=== PATIENT | male | born 1945 | race Caucasian/White ===

== ENCOUNTER 2016-07-27 13:25 | Emergency (ER) | payer MEDICARE ==
[2016-07-27] MEDS ORDERED: Sodium Chloride 0.9% 2.5 ML Syringe FLUSH PRN (13:36)
[2016-07-27] MEDS ORDERED: Sodium Chloride 0.9% 10 ML Syringe FLUSH PRN (13:36)
[2016-07-27] MEDS ORDERED: Aspirin 81 MG Tab.Chew PO ONE (13:36)
[2016-07-27] MEDS ORDERED: Ondansetron 4 MG/2 ML SDV ONE (13:40)
[2016-07-27] MEDS ORDERED: Midazolam 1 MG/ML 2 ML SDV ONE ×2 (13:48→13:56)
[2016-07-27] MEDS ORDERED: Tenecteplase 50 MG Kit ONE (13:53)
[2016-07-27] MEDS ORDERED: Heparin Sodium 5,000 Units/ML Vial IVPUSH ONE (13:53)
[2016-07-27] MEDS ORDERED: Tenecteplase 50 MG Kit IV ONE (13:56)
[2016-07-27] MEDS ORDERED: fentaNYL 100 MCG/2 ML SDV ONE (14:02)
--- NOTE | 2016-07-27 14:02 | EDM.PDOC ---
ED HPI GENERAL MEDICAL PROBLEM - General Stated Complaint: CHEST PAIN Time Seen by Provider: 07/27/16 13:30 Source of Information: Reports: Patient History Limitations: Reports: No Limitations - History of Present Illness INITIAL COMMENTS - FREE TEXT/NARRATIVE: History of present illness: [] Patient presents with chest pain for the past hour after moving his holds while watering the lawn this morning. He has a history of COPD and is currently on Symbicort and DuoNeb's. Patient also has a history of colon cancer in the remote past. He denies any cardiac history or previous CT. Review of systems: As per history of present illness and below otherwise all systems reviewed and negative. Past medical history: As per history of present illness and as reviewed below otherwise noncontributory. Surgical history: As per history of present illness and as reviewed below otherwise noncontributory. Social history: No reported history of drug or alcohol abuse. Family history: As per history of present illness and as reviewed below otherwise noncontributory. Physical exam: General: Well developed, well nourished pale and diaphoretic HEENT: Atraumatic, normocephalic, pupils reactive, negative for conjunctival pallor or scleral icterus, mucous membranes moist, throat clear, neck supple, nontender, trachea midline. Lungs: Clear to auscultation, breath sounds equal bilaterally, chest nontender. Heart: S1S2, regular, negative for clicks, rubs, or JVD. Abdomen: Soft, nondistended, nontender. Negative for masses or hepatosplenomegaly. Negative for costovertebral tenderness. Pelvis: Stable nontender. Genitourinary: Deferred. Rectal: Deferred. Extremities: Atraumatic, negative for cords or calf pain. Neurovascular unremarkable. Neuro: Awake, alert, oriented. Cranial nerves II through XII unremarkable. Cerebellum unremarkable. Motor and sensory unremarkable throughout. Exam nonfocal. Diagnostics: [] EKG showing inferior STEMI, patient had a large emesis and became bradycardic lost his pulse while in the ED. CPR was begun monitor showed showed A. fib he was then defibrillated at 200 J back into a junctional rhythm. He was in third degree heart block shortly after this and pacing was begun. Anesthesia was present and intubated the patient. Dr. Armstrong from cardiology was in the ER seeing another patient and was also present during this code. Therapeutics: [] Patient was and Zofran, heparin and TNKase was started. Impression: [] STEMI inferior Plan: [] Dr. Pritchard in [place] was consulted and accepts this patient. Air transport was called. Definitive disposition and diagnosis as appropriate pending reevaluation and review of above. Midsternal CP/Back Pain Score (Numeric/FACES): 5 - Related Data Allergies Allergy/AdvReac Type Severity Reaction Status Date / Time Penicillins Allergy Rash Verified 07/27/16 14:12 Home Meds: Home Meds Albuterol [Ventolin HFA] 1 puff INH Q4H PRN 06/14/13 [History] Budesonide/Formoterol Fumarate [Symbicort 80-4.5 Mcg Inhaler] 1 puff IH [History] Social & Family History - Tobacco Use Years of Tobacco use: 50 Month Tobacco Last Used: til present - Alcohol Use Days Per Week of Alcohol Use: 0 - Recreational Drug Use Recreational Drug Use: No ED ROS GENERAL - Review of Systems Review Of Systems: See Below (See history of present illness) ED EXAM, GENERAL - Physical Exam Exam: See Below (See history of present illness) Course - Vital Signs Last Recorded V/S: Last Vital Signs Temp 36.1 C 07/27/16 13:25 Pulse 39 L 07/27/16 13:25 Resp 16 07/27/16 13:25 BP 111/64 07/27/16 13:25 Pulse Ox 93 L 07/27/16 13:25 - Orders/Labs/Meds Orders: Active Orders 24 hr Category Date Time Status EKG Documentation Completion [RC] STAT Care 07/27/16 13:36 Active RT Ventilator, Adult [RC] ASDIRECTED Care 07/27/16 14:21 Active Chest 1V Frontal [CR] Stat Exams 07/27/16 14:28 Taken Heparin Sod,Pork In 0.45% Nacl [Heparin-1/2Ns 25,000 Med 07/27/16 14:00 Active Units/500] 500 ml IV TITRATE Sodium Chloride 0.9% [Saline Flush] Med 07/27/16 13:36 Active 10 ml FLUSH ASDIRECTED PRN Sodium Chloride 0.9% [Saline Flush] Med 07/27/16 13:36 Active 2.5 ml FLUSH ASDIRECTED PRN Saline Lock Insert [OM.PC] Stat Oth 07/27/16 13:36 Ordered Medication Orders Heparin Sod,Pork In 0.45% Nacl (Heparin-1/2ns 25,000 Units/500) 500 mls @ 23.4 mls/hr IV TITRATE MICHAEL; 15 UNITS/KG/HR PRN Reason: Protocol Sodium Chloride (Saline Flush) 10 ml FLUSH ASDIRECTED PRN PRN Reason: Keep Vein Open Sodium Chloride (Saline Flush) 2.5 ml FLUSH ASDIRECTED PRN PRN Reason: Keep Vein Open Labs: Laboratory Tests 07/27/16 07/27/16 07/27/16 Range/Units 13:20 13:20 13:20 WBC 10.80 (4.0-11.0) K/uL RBC 5.53 (4.50-5.90) M/uL Hgb 16.6 (13.0-17.0) g/dL Hct 47.4 (38.0-50.0) % MCV 85.7 (80.0-98.0) fL MCH 30.0 (27.0-32.0) pg MCHC 35.0 (31.0-37.0) g/dL RDW Std Deviation 40.6 (28.0-62.0) fl RDW Coeff of Rebecca 13 (11.0-15.0) % Plt Count 248 (150-400) K/uL MPV 10.50 (7.40-12.00) fL Neut % (Auto) 56.0 (48.0-80.0) % Lymph % (Auto) 31.9 (16.0-40.0) % Radford % (Auto) 8.8 (0.0-15.0) % Eos % (Auto) 2.5 (0.0-7.0) % Baso % (Auto) 0.8 (0.0-1.5) % Neut # (Auto) 6.0 H (1.4-5.7) K/uL Lymph # (Auto) 3.5 H (0.6-2.4) K/uL Radford # (Auto) 1.0 H (0.0-0.8) K/uL Eos # (Auto) 0.3 (0.0-0.7) K/uL Baso # (Auto) 0.1 (0.0-0.1) K/uL Nucleated RBC % 0.0 /100WBC Nucleated RBCs # 0 K/uL INR 1.04 (0.86-1.11) Sodium 143 (136-146) mmol/L Potassium 4.3 (3.5-5.1) mmol/L Chloride 109 (98-110) mmol/L Carbon Dioxide 23 (21-31) mmol/L BUN 17 (6.0-23.0) mg/dL Creatinine 1.4 (0.6-1.5) mg/dL Est Cr Clr Drug Dosing 54.66 mL/min Estimated GFR (MDRD) 50.2 ml/min Glucose 114 H (60-110) mg/dL Calcium 9.4 (8.8-10.8) mg/dL Total Bilirubin 1.2 (0.1-1.5) mg/dL AST 31 (5-40) IU/L ALT 27 (8-54) IU/L Alkaline Phosphatase 62 (40-150) Troponin I (0.0-0.29) NG/ML Total Protein 7.6 (6.0-8.0) g/dL Albumin 4.5 (3.4-4.8) g/dL Globulin 3.1 (2.0-3.5) g/dL Albumin/Globulin Ratio 1.5 (1.3-2.8) /09/05 Range/Units 13:20 WBC (4.0-11.0) K/uL RBC (4.50-5.90) M/uL Hgb (13.0-17.0) g/dL Hct (38.0-50.0) % MCV (80.0-98.0) fL MCH (27.0-32.0) pg MCHC (31.0-37.0) g/dL RDW Std Deviation (28.0-62.0) fl RDW Coeff of Rebecca (11.0-15.0) % Plt Count (150-400) K/uL MPV (7.40-12.00) fL Neut % (Auto) (48.0-80.0) % Lymph % (Auto) (16.0-40.0) % Radford % (Auto) (0.0-15.0) % Eos % (Auto) (0.0-7.0) % Baso % (Auto) (0.0-1.5) % Neut # (Auto) (1.4-5.7) K/uL Lymph # (Auto) (0.6-2.4) K/uL Radford # (Auto) (0.0-0.8) K/uL Eos # (Auto) (0.0-0.7) K/uL Baso # (Auto) (0.0-0.1) K/uL Nucleated RBC % /100WBC Nucleated RBCs # K/uL INR (0.86-1.11) Sodium (136-146) mmol/L Potassium (3.5-5.1) mmol/L Chloride (98-110) mmol/L Carbon Dioxide (21-31) mmol/L BUN (6.0-23.0) mg/dL Creatinine (0.6-1.5) mg/dL Est Cr Clr Drug Dosing mL/min Estimated GFR (MDRD) ml/min Glucose (60-110) mg/dL Calcium (8.8-10.8) mg/dL Total Bilirubin (0.1-1.5) mg/dL AST (5-40) IU/L ALT (8-54) IU/L Alkaline Phosphatase (40-150) Troponin I 1.40 H* (0.0-0.29) NG/ML Total Protein (6.0-8.0) g/dL Albumin (3.4-4.8) g/dL Globulin (2.0-3.5) g/dL Albumin/Globulin Ratio (1.3-2.8) Meds: Medications Generic Name Dose Route Start Last Admin Trade Name Freq PRN Reason Stop Dose Admin Heparin Sod,Pork In 0.45% Nacl 500 mls @ 23.4 mls/hr 07/27/16 14:00 Heparin-1/2ns 25,000 Units/500 IV TITRATE MICHAEL Protocol 15 UNITS/KG/HR Sodium Chloride 10 ml 07/27/16 13:36 Saline Flush FLUSH ASDIRECTED PRN Keep Vein Open Sodium Chloride 2.5 ml 07/27/16 13:36 Saline Flush FLUSH ASDIRECTED PRN Keep Vein Open Discontinued Medications Generic Name Dose Route Start Last Admin Trade Name Freq PRN Reason Stop Dose Admin Aspirin 324 mg 07/27/16 13:36 Aspirin PO 07/27/16 13:37 ONETIME ONE Fentanyl Confirm 07/27/16 14:02 Sublimaze Administered 07/27/16 14:03 Dose 100 mcg .ROUTE .STK-MED ONE Fentanyl 100 mcg 07/27/16 14:28 Sublimaze IVPUSH 07/27/16 14:29 NOW STA Heparin Sodium (Porcine) 5,000 units 07/27/16 13:53 Heparin Sodium IVPUSH 07/27/16 13:54 ONETIME ONE Heparin Sod,Pork In 0.45% Nacl Confirm 07/27/16 13:54 Heparin-1/2ns 25,000 Units/500 Administered 07/27/16 13:55 Dose 500 mls @ as directed IV .STK-MED ONE Midazolam HCl Confirm 07/27/16 13:48 Versed 1 Mg/Ml Administered 07/27/16 13:49 Dose 2 mg .ROUTE .STK-MED ONE Midazolam HCl Confirm 07/27/16 13:56 Versed 1 Mg/Ml Administered 07/27/16 13:57 Dose 2 mg .ROUTE .STK-MED ONE Midazolam HCl 2 mg 07/27/16 14:28 Versed 1 Mg/Ml IVPUSH 07/27/16 14:29 ONETIME ONE Midazolam HCl 2 mg 07/27/16 14:29 Versed 1 Mg/Ml IVPUSH 07/27/16 14:30 ONETIME ONE Ondansetron HCl Confirm 07/27/16 13:40 Zofran Administered 07/27/16 13:41 Dose 8 mg .ROUTE .STK-MED ONE Tenecteplase 50 mg 07/27/16 13:56 Tnkase IV 07/27/16 13:57 ASDIRECTED ONE Protocol Tenecteplase Confirm 07/27/16 13:53 Tnkase Administered 07/27/16 13:54 Dose 50 mg .ROUTE .STK-MED ONE Departure - Departure Time of Disposition: 14:49 Disposition: DC/Tfer to Acute Hospital 02 Preliminary Cause of *Q: Cardiac arrest Reason for Transfer *Q: Primary PCI Indicated Condition: critical Clinical Impression: STEMI (ST elevation myocardial infarction) Qualifiers: Involved coronary artery: unspecified coronary artery Qualified Code(s): I21.3 - ST elevation (STEMI) myocardial infarction of unspecified site - My Orders Last 24 Hours: My Active Orders 07/27/16 13:36 EKG Documentation Completion [RC] STAT Sodium Chloride 0.9% [Saline Flush] 10 ml FLUSH ASDIRECTED PRN Sodium Chloride 0.9% [Saline Flush] 2.5 ml FLUSH ASDIRECTED PRN Saline Lock Insert [OM.PC] Stat 07/27/16 14:00 Heparin Sod,Pork In 0.45% Nacl [Heparin-1/2Ns 25,000 Units/500] 500 ml IV TITRATE 07/27/16 14:21 RT Ventilator, Adult [RC] ASDIRECTED - Assessment/Plan Last 24 Hours: My Active Orders 07/27/16 13:36 EKG Documentation Completion [RC] STAT Sodium Chloride 0.9% [Saline Flush] 10 ml FLUSH ASDIRECTED PRN Sodium Chloride 0.9% [Saline Flush] 2.5 ml FLUSH ASDIRECTED PRN Saline Lock Insert [OM.PC] Stat 07/27/16 14:00 Heparin Sod,Pork In 0.45% Nacl [Heparin-1/2Ns 25,000 Units/500] 500 ml IV TITRATE 07/27/16 14:21 RT Ventilator, Adult [RC] ASDIRECTED
--- NOTE | 2016-07-27 14:07 | CR ---
EXAMINATION: Portable chest radiograph. HISTORY: STEMI FINDINGS: The trachea is midline. The cardiomediastinal silhouette is within normal limits. No pulmonary infil trates, effusions or pneumothorax. Mild chronic interstitial prominence. Defibrillator pads noted. Osseous structures appear unremarkable. IMPRESSION: No acute cardiopulmonary process.
[2016-07-27 14:12] VITALS: BP 111/64
[2016-07-27] MEDS ORDERED: Midazolam 1 MG/ML 2 ML SDV IVPUSH ONE ×2 (14:28→14:29)
[2016-07-27] MEDS ORDERED: fentaNYL 100 MCG/2 ML SDV IVPUSH STA (14:28)
--- NOTE | 2016-07-27 14:43 | PCM.SN ---
- Free Text/Narrative Note: Called to ER for [facility]. On my arrival CPR is in progress with BVM resps per RT. Pt did currently bradycardic (Complete Heart Block). Pt is now awake but very lethargic. Decision was made to intubate the pt and start external pacing prior to transport. Pt is at the bedside and agrees with this plan. Prior to intubation HR 20-30's (Unresponsive to Atropine 1mg IVP), SpO2 100% with BVM (rate 12) assisted respirations on FiO2 100%. BP 92/40 Etomidate 20mg IVP Rocuronium 10mg IVP Succinylcholine 100mg IVP Versed 2mg IVP DL with Ibrahim 2 yields Grade I view. 8.0 ETT placed +BBS, +EtCO2, CXR pending. Additional Versed 2mg IV given for continued sedation, Fentanyl 50mcg IV given x 2 doses as well for pain. HR - 80 Externally Paced SpO2 - 100% (Vent settings) R-8,P-5, PS-10, FiO2 100%. BP - 121/83 Initially after intubation pacing was started by me at Rate 80, Output was titrated up to 120 output before continuous capture was obtained. Prior to transfer pt currently is over-driving external pacing at a rate of 80-[address] Wilson is aware.
--- NOTE | 2016-07-27 14:48 | CR ---
EXAMINATION: Portable chest radiograph. HISTORY: Intubation. FINDINGS: The trachea is midline. The cardiomediastinal silhouette is within normal limits. No pulmonary infil trates, effusions or pneumothorax. Defibrillator pads noted. There is an endotracheal tube in good p osition approximately 6 cm above the murray. Osseous structures appear unremarkable. IMPRESSION: Endotracheal tube in good position.
[2016-07-27] MEDS ORDERED: Rocuronium 100 MG/10 ML MDV IV ONE (14:52)
[2016-07-27] MEDS ORDERED: Etomidate 2 MG/ML 20 ML SDV IVPUSH ONE (14:52)
[2016-07-27] MEDS ORDERED: Succinylcholine 200 MG/10 ML MDV IV ONE (14:52)
[2016-07-27] MEDS ORDERED: Atropine 0.1 MG/ML 10 ML Syringe IV ONE (14:56)
== END 2016-07-27 14:30 ==
LOC: MW.ED 13:25
DX: I21.19 ST elevation (STEMI) myocardial infarction involving other coronary artery of inferior wall (principal); J44.9 Chronic obstructive pulmonary disease, unspecified; Z85.038 Personal history of other malignant neoplasm of large intestine; Z88.0 Allergy status to penicillin
CPT/HCPCS: 36415; 71010; 80053; 84484; 85025; 85610; 92950; 96361; 96365; 96374; 96375; 99291; J0330; J0461; J1644; J2250; J3010; J3101; 31500; 99285

== ENCOUNTER 2016-08-12 20:13 | Observation (INO) | payer MEDICARE, OTHER ==
--- NOTE | 2016-08-12 20:26 | EDM.PDOC ---
ED HPI GENERAL MEDICAL PROBLEM - General Chief Complaint: Cardiovascular Problem Stated Complaint: HEART PROBLEMS Time Seen by Provider: 08/12/16 20:20 - History of Present Illness INITIAL COMMENTS - FREE TEXT/NARRATIVE: HISTORY AND PHYSICAL: History of present illness: Patient 70-year-old male who had a recent NV and subsequent stents 7 reportedly who presents with a concern of episode of hypoxemia on rapid heart rate he states his noted that he did not look particularly well he switch his O2 from the generator to a O2 tank he states it does not particularly change how we felt that he did not feel particularly bad with that initial episode he states heart rate was in the upper 90s which is high for him and his pulse ox was in the 80s. He denies chest pain nausea vomiting or diaphoresis Review of systems: As per history of present illness and below otherwise all systems reviewed and negative. Past medical history: As per history of present illness and as reviewed below otherwise noncontributory. Surgical history: As per history of present illness and as reviewed below otherwise noncontributory. Social history: No reported history of drug or alcohol abuse. Family history: As per history of present illness and as reviewed below otherwise noncontributory. Physical exam: HEENT: Atraumatic, normocephalic, pupils reactive, negative for conjunctival pallor or scleral icterus, mucous membranes moist, throat clear, neck supple, nontender, trachea midline. Lungs: Coarse bilaterally, breath sounds equal bilaterally, chest nontender. Heart: S1S2, regular, negative for clicks, rubs, or JVD. Abdomen: Soft, nondistended, nontender. Negative for masses or hepatosplenomegaly. Negative for costovertebral tenderness. Pelvis: Stable nontender. Genitourinary: Deferred. Rectal: Deferred. Extremities: Atraumatic, negative for cords or calf pain. Neurovascular unremarkable. Neuro: Awake, alert, oriented. Cranial nerves II through XII unremarkable. Cerebellum unremarkable. Motor and sensory unremarkable throughout. Exam nonfocal. Diagnostics: CBC CMP PT/INR troponin chest x-ray EKG Therapeutics: IV O2 monitor Impression: #1 hypoxemic episode #2 history of recent NV with stent placement #3 COPD Definitive disposition and diagnosis as appropriate pending reevaluation and review of above. - Related Data Allergies Allergy/AdvReac Type Severity Reaction Status Date / Time Penicillins Allergy Rash Verified 07/27/16 14:12 Home Meds: Home Meds Albuterol [Ventolin HFA] 1 puff INH Q4H PRN 06/14/13 [History] Budesonide/Formoterol Fumarate [Symbicort 80-4.5 Mcg Inhaler] 1 puff IH [History] Past Medical History HEENT History: Reports: None Cardiovascular History: Reports: None Respiratory History: Reports: COPD, SOB Gastrointestinal History: Reports: None Musculoskeletal History: Reports: None Neurological History: Reports: None Psychiatric History: Reports: None Endocrine/Metabolic History: Reports: None Hematologic History: Reports: None Immunologic History: Reports: None Oncologic (Cancer) History: Reports: None Dermatologic History: Reports: None - Infectious Disease History Infectious Disease History: Reports: None - Past Surgical History Head Surgeries/Procedures: Reports: None HEENT Surgical History: Reports: None Cardiovascular Surgical History: Reports: None Respiratory Surgical History: Reports: None GI Surgical History: Reports: None Musculoskeletal Surgical History: Reports: None Dermatological Surgical History: Reports: None Social & Family History - Family History Family Medical History: Noncontributory - Tobacco Use Smoking Status *Q: Current Every Day Smoker Years of Tobacco use: 50 Packs/Tins Daily: 1 Month Tobacco Last Used: til present - Caffeine Use Caffeine Use: Reports: Coffee - Alcohol Use Days Per Week of Alcohol Use: 0 - Recreational Drug Use Recreational Drug Use: No ED ROS GENERAL - Review of Systems Review Of Systems: ROS reveals no pertinent complaints other than HPI. ED EXAM, GENERAL - Physical Exam Exam: See Below (See dictation) Course - Vital Signs Last Recorded V/S: Last Vital Signs Temp 36.6 C 08/12/16 20:14 Pulse 88 08/12/16 20:14 Resp 20 08/12/16 20:14 BP 145/85 H 08/12/16 20:14 Pulse Ox 94 L 08/12/16 20:14 Departure - Departure Time of Disposition: 20:26 Disposition: Refer to Observation Condition: Good Clinical Impression: Hypoxemia, Coronary artery disease, COPD (chronic obstructive pulmonary disease ) Forms: ED Department Discharge
[2016-08-12] MEDS ORDERED: Albuterol HFA 18 Gm Inhaler INH PRN (23:21)
[2016-08-12] MEDS ORDERED: Rosuvastatin 10 MG Tab PO SCH (23:25)
[2016-08-12] MEDS ORDERED: Famotidine 20 MG Tab PO SCH (23:25)
[2016-08-12] MEDS ORDERED: traZODone 50 MG Tab PO SCH (23:26)
[2016-08-12] MEDS ORDERED: Ipratropium 0.02% 0.5 MG/2.5 ML Neb Soln INH SCH (23:30)
[2016-08-13] MEDS: Acetaminophen 500 MG Tab PO SCH ×3 (00:21→12:21)
[2016-08-13] MEDS: FORMOTEROL FUMARATE IH SCH ×2 (00:21→06:10)
[2016-08-13] MEDS: Naproxen 500 MG Tab PO SCH ×3 (00:21→11:08)
[2016-08-13] MEDS: BUDESONIDE IH SCH ×2 (00:21→06:10)
[2016-08-13] MEDS: Metoprolol Tartrate 25 MG Tab PO SCH ×2 (00:24→08:59)
[2016-08-13] MEDS ORDERED: Omeprazole 20 MG Cap.CR PO SCH (07:00)
[2016-08-13] MEDS ORDERED: Aspirin 81 MG Tab.Chew PO SCH (09:00)
[2016-08-13] MEDS ORDERED: Furosemide 40 MG Tab PO SCH (09:00)
[2016-08-13] MEDS ORDERED: Spironolactone 25 MG Tab PO SCH (09:00)
[2016-08-13] MEDS ORDERED: Fish Oil/Omega-3 Fatty Acids 1 Gm Cap PO SCH (09:00)
[2016-08-13] MEDS ORDERED: Clopidogrel 75 MG Tab PO SCH (09:00)
[2016-08-13 11:47] VITALS: BP 114/55
--- NOTE | 2016-08-13 13:14 | PCM.HP ---
H&P History of Present Illness - General Date of Service: 08/13/16 Admit Problem/Dx: Admission Diagnosis/Problem Admission Diagnosis/Problem Hypoxemia - History of Present Illness Initial Comments - Free Text/Narative: He presented to the ED last night because his noticed that his oxygen saturation at home was 84% and heart rate was 101/minute. His oxygen saturation improved with increased nasal canula oxygen. He has been on [place] O2 at home at 1.5 liters/minute. Middle Chest Pain Score (Numeric/FACES): 1 - Related Data Allergies/Adverse Reactions: Allergies Allergy/AdvReac Type Severity Reaction Status Date / Time levofloxacin [From Levaquin] Allergy Airway Verified 08/12/16 23:10 Tightness Penicillins Allergy Rash Verified 07/27/16 14:12 Home Medications: Home Meds Albuterol [Ventolin HFA] 2 puff INH QID PRN 06/14/13 [History] Budesonide/Formoterol Fumarate [Symbicort 80-4.5 Mcg Inhaler] 2 puff IH BID 09/05 [History] Acetaminophen 1,000 mg PO QID 08/12/16 [History] Aspirin 81 mg PO DAILY 08/12/16 [History] Clopidogrel Bisulfate [Clopidogrel] 75 mg PO BID 08/12/16 [History] Furosemide 40 mg PO DAILY 08/12/16 [History] Ipratropium [place] 2.5 ml INH Q6H 08/12/16 [History] Metoprolol Tartrate 25 mg PO BID 08/12/16 [History] Naproxen [Naprosyn] 500 mg PO Q12HR 08/12/16 [History] [place]-3S/DHA/Epa/Fish Oil/D3 [Fish Oil Gummies] 1 tab PO DAILY 08/12/16 [History ] Omeprazole 20 mg PO DAILY 08/12/16 [History] Ranitidine HCl 300 mg PO BEDTIME 08/12/16 [History] Rosuvastatin [Crestor] 20 mg PO BEDTIME 08/12/16 [History] Spironolactone [Aldactone] 12.5 mg PO DAILY 08/12/16 [History] predniSONE [Prednisone] 40 mg PO DAILY 08/12/16 [History] traZODone HCl [Trazodone HCl] 50 mg PO BEDTIME 08/12/16 [History] Past Medical History HEENT History: Reports: Hard of Hearing Other HEENT History: wears glasses Cardiovascular History: Reports: [place], Stents Other Cardiovascular History: 7 stents, done july 27, 2016 Respiratory History: Reports: COPD, SOB Gastrointestinal History: Reports: GERD Musculoskeletal History: Reports: None Neurological History: Reports: None Psychiatric History: Reports: None Endocrine/Metabolic History: Reports: None. Denies: Diabetes, Type II Hematologic History: Reports: None Immunologic History: Reports: None Oncologic (Cancer) History: Reports: Colon Dermatologic History: Reports: Other (See Below) Other Dermatologic History: vitalgo - Infectious Disease History Infectious Disease History: Reports: Measles, Mumps - Past Surgical History Head Surgeries/Procedures: Reports: None HEENT Surgical History: Reports: None Cardiovascular Surgical History: Reports: Coronary Artery Stent Respiratory Surgical History: Reports: None GI Surgical History: Reports: None Musculoskeletal Surgical History: Reports: None Oncologic Surgical History: Reports: Other (See Below) Other Oncologic Surgeries/Procedures: colon resection Dermatological Surgical History: Reports: None Social & Family History - Family History Family Medical History: Noncontributory - Tobacco Use Smoking Status *Q: Former Smoker Years of Tobacco use: 50 Packs/Tins Daily: 0.2 Used Tobacco, but Quit: Yes Month Tobacco Last Used: july Tobacco Use Comment: patient quit smoking 10 days ago Second Hand Smoke Exposure: No - Caffeine Use Caffeine Use: Reports: Coffee - Alcohol Use Days Per Week of Alcohol Use: 0 - Recreational Drug Use Recreational Drug Use: No H&P Review of Systems - Review of Systems: Review Of Systems: See Below General: Denies: Fever, Chills Pulmonary: Reports: Other (no coughing or dyspnea more than usual ) Cardiovascular: Denies: Chest Pain Gastrointestinal: Denies: Abdominal Pain, Black Stool, Bloody Stool, Hematemesis , Hematochezia, Melena, Stool Incontinence Genitourinary: Denies: Dysuria, Frequency, Hematuria Skin: Denies: Jaundice Psychiatric: Denies: Confusion Exam - Exam Exam: See Below - Vital Signs Vital Signs: Last Vital Signs Temp 98.1 F 08/13/16 11:46 Pulse 62 08/13/16 11:46 Resp 22 H 08/13/16 11:46 BP 114/55 L 08/13/16 11:46 Pulse Ox 94 L 08/13/16 11:46 Weight: 72.5 kg - Exam General: Alert HEENT: EOMI Lungs: Clear to Auscultation, Normal Respiratory Effort. No: Crackles, Rales, Rhonchi Cardiovascular: Regular Rate, Regular Rhythm Abdomen: Soft. No: Distention, Tenderness (Male) Exam: Deferred Rectal (Males) Exam: Deferred Extremities: No: Cyanosis, Edema Neurological: Cranial Nerves Intact Neuro Extensive - Mental Status: Normal Cognition Neuro Extensive - Motor, Sensory, Reflexes: CN II-XII Intact Psychiatric: No: Depressed - Patient Data Lab Results Last 24 hrs: Laboratory Results - last 24 hr 08/12/16 08/12/16 08/12/16 Range/Units 20:43 20:43 20:43 WBC 10.15 (4.0-11.0) K/uL RBC 4.72 (4.50-5.90) M/uL Hgb 14.4 (13.0-17.0) g/dL Hct 40.9 (38.0-50.0) % MCV 86.7 (80.0-98.0) fL MCH 30.5 (27.0-32.0) pg MCHC 35.2 (31.0-37.0) g/dL RDW Std Deviation 41.4 (28.0-62.0) fl RDW Coeff of Rebecca 13 (11.0-15.0) % Plt Count 251 (150-400) K/uL MPV 9.70 (7.40-12.00) fL Add Manual Diff YES Neutrophils % (Manual) 67 (48.0-80.0) % Lymphocytes % (Manual) 20 (16.0-40.0) % Monocytes % (Manual) 10 (0.0-15.0) % Eosinophils % (Manual) 3 (0.0-7.0) % Nucleated RBC % 0.0 /100WBC Absolute Seg Neuts 6.8 Lymphocytes # (Manual) 2.0 Monocytes # (Manual) 1.0 Eosinophils # (Manual) 0.3 Nucleated RBCs # 0 K/uL INR (0.86-1.11) Sodium 136 (136-146) mmol/L Potassium 4.1 (3.5-5.1) mmol/L Chloride 103 (98-110) mmol/L Carbon Dioxide 23 (21-31) mmol/L BUN 30 H (6.0-23.0) mg/dL Creatinine 1.6 H (0.6-1.5) mg/dL Est Cr Clr Drug Dosing 44.99 mL/min Estimated GFR (MDRD) 43.1 ml/min Glucose 110 (60-110) mg/dL Calcium 9.0 (8.8-10.8) mg/dL Magnesium (1.5-2.3) mEq/L Total Bilirubin 1.2 (0.1-1.5) mg/dL AST 21 (5-40) IU/L ALT 35 (8-54) IU/L Alkaline Phosphatase 106 (40-150) Troponin I < 0.10 (0.0-0.29) NG/ML Total Protein 7.0 (6.0-8.0) g/dL Albumin 3.8 (3.4-4.8) g/dL Globulin 3.2 (2.0-3.5) g/dL Albumin/Globulin Ratio 1.2 L (1.3-2.8) 08/12/16 08/13/16 Range/Units 20:43 05:50 WBC (4.0-11.0) K/uL RBC (4.50-5.90) M/uL Hgb (13.0-17.0) g/dL Hct (38.0-50.0) % MCV (80.0-98.0) fL MCH (27.0-32.0) pg MCHC (31.0-37.0) g/dL RDW Std Deviation (28.0-62.0) fl RDW Coeff of Rebecca (11.0-15.0) % Plt Count (150-400) K/uL MPV (7.40-12.00) fL Add Manual Diff Neutrophils % (Manual) (48.0-80.0) % Lymphocytes % (Manual) (16.0-40.0) % Monocytes % (Manual) (0.0-15.0) % Eosinophils % (Manual) (0.0-7.0) % Nucleated RBC % /100WBC Absolute Seg Neuts Lymphocytes # (Manual) Monocytes # (Manual) Eosinophils # (Manual) Nucleated RBCs # K/uL INR 1.01 (0.86-1.11) Sodium (136-146) mmol/L Potassium (3.5-5.1) mmol/L Chloride (98-110) mmol/L Carbon Dioxide (21-31) mmol/L BUN (6.0-23.0) mg/dL Creatinine (0.6-1.5) mg/dL Est Cr Clr Drug Dosing mL/min Estimated GFR (MDRD) ml/min Glucose (60-110) mg/dL Calcium (8.8-10.8) mg/dL Magnesium 1.8 (1.5-2.3) mEq/L Total Bilirubin (0.1-1.5) mg/dL AST (5-40) IU/L ALT (8-54) IU/L Alkaline Phosphatase (40-150) Troponin I (0.0-0.29) NG/ML Total Protein (6.0-8.0) g/dL Albumin (3.4-4.8) g/dL Globulin (2.0-3.5) g/dL Albumin/Globulin Ratio (1.3-2.8) Result Diagrams: 08/12/16 20:43 08/12/16 20:43 *Q Meaningful Use (ADM) - VTE *Q VTE Criteria *Q: - Stroke *Q Stroke Criteria *Q: - AMI *Q AMI Criteria *Q: - Problem List (1) COPD (chronic obstructive pulmonary disease) SNOMED Code(s): 37853126 ICD Code: J44.9 - CHRONIC OBSTRUCTIVE PULMONARY DISEASE, UNSPECIFIED Status : Acute Current Visit: Yes (2) Hypoxemia SNOMED Code(s): 770228115 ICD Code: R09.02 - HYPOXEMIA Status: Acute Current Visit: Yes Problem List Initiated/Reviewed/Updated: Yes Orders Last 24hrs: Active Orders 24 hr Category Date Time Status Communication Order [RC] DAILY Care 08/12/16 22:54 Active Overnight Pulse Oximetry [RC] Click To Edit Care 08/13/16 01:31 Active Oxygen Therapy [RC] ASDIRECTED Care 08/12/16 22:54 Active Telemetry Monitoring [Cardiac Monitoring] [RC] Q8H Care 08/12/16 21:45 Active Heart Healthy Diet [DIET] Diet 08/13/16 Breakfast Active Acetaminophen [Tylenol Extra Strength] Med 08/13/16 00:00 Active 1,000 mg PO QID Albuterol [Ventolin HFA] Med 08/12/16 23:21 Active 0 gm INH QID PRN Aspirin Med 08/13/16 09:00 Active 81 mg PO DAILY Budesonide/Formoterol Fumarate Med 08/12/16 23:22 Active 0 puff IH BID@0600,1800 Clopidogrel [Plavix] Med 08/13/16 09:00 Active 75 mg PO BID Famotidine [Pepcid] Med 08/12/16 23:25 Active 20 mg PO BEDTIME Fish Oil/[place]-3 Fatty Acids [Fish Oil] Med 08/13/16 09:00 Active 2 gm PO DAILY Furosemide [Lasix] Med 08/13/16 09:00 Active 40 mg PO DAILY Ipratropium [Atrovent] Med 08/12/16 23:30 Active 0.5 mg INH Q6H Metoprolol Tartrate [Lopressor] Med 08/12/16 23:30 Active 25 mg PO BID Naproxen [Naprosyn] Med 08/12/16 23:23 Active 500 mg PO Q12HR Omeprazole Med 08/13/16 07:00 Active 20 mg PO DAILY@0700 Rosuvastatin [Crestor] Med 08/12/16 23:25 Active 20 mg PO BEDTIME Spironolactone [Aldactone] Med 08/13/16 09:00 Active 12.5 mg PO DAILY traZODone Med 08/12/16 23:26 Active 50 mg PO BEDTIME Pulse Oximetry Continuous Monitoring [OM.PC] Routine Oth 08/13/16 01:31 Ordered Medication Orders Acetaminophen (Tylenol Extra Strength) 1,000 mg PO QID [facility] Last Admin: 08/13/16 12:21 Dose: 1,000 mg Admin: 08/13/16 06:15 Dose: 1,000 mg Admin: 08/13/16 00:21 Dose: 1,000 mg Albuterol (Ventolin Hfa) 0 gm INH QID PRN PRN Reason: Shortness of Breath Aspirin (Aspirin) 81 mg PO DAILY [facility] Last Admin: 08/13/16 08:58 Dose: 81 mg Clopidogrel Bisulfate (Plavix) 75 mg PO BID [facility] Last Admin: 08/13/16 08:59 Dose: 75 mg Famotidine (Pepcid) 20 mg PO BEDTIME [facility] Last Admin: 08/13/16 00:26 Dose: 20 mg Fish Oil (Fish Oil) 2 gm PO DAILY [facility] Last Admin: 08/13/16 08:59 Dose: 2 gm Furosemide (Lasix) 40 mg PO DAILY [facility] Last Admin: 08/13/16 08:59 Dose: 40 mg Ipratropium [place] (Atrovent) 0.5 mg INH Q6H [facility] Metoprolol Tartrate (Lopressor) 25 mg PO BID [facility] Last Admin: 08/13/16 08:59 Dose: 25 mg Admin: 08/13/16 00:24 Dose: 25 mg Naproxen (Naprosyn) 500 mg PO Q12HR [facility] Last Admin: 08/13/16 11:08 Dose: Not Given Admin: 08/13/16 00:21 Dose: 500 mg Budesonide/Formoterol Fumarate 2 Puff 160-4.5mcg Pt Own 0 puff IH BID@0600, 1800 [facility] Last Admin: 08/13/16 06:10 Dose: 2 puff Admin: 08/13/16 00:21 Dose: Omeprazole (Omeprazole) 20 mg PO DAILY@0700 [facility] Last Admin: 08/13/16 06:14 Dose: 20 mg Rosuvastatin Calcium (Crestor) 20 mg PO BEDTIME [facility] Last Admin: 08/13/16 00:26 Dose: 20 mg Spironolactone (Aldactone) 12.5 mg PO DAILY [facility] Last Admin: 08/13/16 08:59 Dose: 12.5 mg Trazodone HCl (Trazodone) 50 mg PO BEDTIME [facility] Last Admin: 08/13/16 00:26 Dose: 50 mg Assessment/Plan Comment:: admit monitor Rickey Leigh MD
--- NOTE | 2016-08-13 13:22 | PCM.DCSUM1 ---
Discharge Summary - Hospital Course Brief History: he was admitted with a mild transient hypoxemia. - Discharge Data Discharge Date: 08/13/16 Discharge Disposition: Home, Self-Care 01 Condition: Fair - Discharge Diagnosis/Problem(s) (1) COPD (chronic obstructive pulmonary disease) SNOMED Code(s): 81189527 ICD Code: J44.9 - CHRONIC OBSTRUCTIVE PULMONARY DISEASE, UNSPECIFIED Status : Acute Current Visit: Yes (2) Hypoxemia SNOMED Code(s): 716465006 ICD Code: R09.02 - HYPOXEMIA Status: Acute Current Visit: Yes - Patient Summary/Data Hospital Course: His hypoxia improved. His oxygen saturation at discharge is 94% on 1.5 l/minute [place] oxygen. I advised that he might occasionally need to increase his FIO2. - Discharge Plan Home Medications: Home Meds Albuterol [Ventolin HFA] 2 puff INH QID PRN 06/14/13 [History] Budesonide/Formoterol Fumarate [Symbicort 80-4.5 Mcg Inhaler] 2 puff IH BID 09/05 [History] Acetaminophen 1,000 mg PO QID 08/12/16 [History] Aspirin 81 mg PO DAILY 08/12/16 [History] Clopidogrel Bisulfate [Clopidogrel] 75 mg PO BID 08/12/16 [History] Furosemide 40 mg PO DAILY 08/12/16 [History] Ipratropium [place] 2.5 ml INH Q6H 08/12/16 [History] Metoprolol Tartrate 25 mg PO BID 08/12/16 [History] Naproxen [Naprosyn] 500 mg PO Q12HR 08/12/16 [History] [place]-3S/DHA/Epa/Fish Oil/D3 [Fish Oil Gummies] 1 tab PO DAILY 08/12/16 [History ] Omeprazole 20 mg PO DAILY 08/12/16 [History] Ranitidine HCl 300 mg PO BEDTIME 08/12/16 [History] Rosuvastatin [Crestor] 20 mg PO BEDTIME 08/12/16 [History] Spironolactone [Aldactone] 12.5 mg PO DAILY 08/12/16 [History] traZODone HCl [Trazodone HCl] 50 mg PO BEDTIME 08/12/16 [History] Forms: ED Department Discharge Referrals: Alfred Oleary MD [Primary Care Provider] - - Patient Data Vitals - Most Recent: Last Vital Signs Temp 98.1 F 08/13/16 11:46 Pulse 62 08/13/16 11:46 Resp 22 H 08/13/16 11:46 BP 114/55 L 08/13/16 11:46 Pulse Ox 94 L 08/13/16 11:46 Weight - Most Recent: 72.5 kg I&O - Last 24 hours: Intake & Output 08/12/16 08/13/16 08/13/16 22:59 06:59 14:59 Intake Total 640 Balance 640 Lab Results - Last 24 hrs: Laboratory Results - last 24 hr 08/12/16 08/12/16 08/12/16 Range/Units 20:43 20:43 20:43 WBC 10.15 (4.0-11.0) K/uL RBC 4.72 (4.50-5.90) M/uL Hgb 14.4 (13.0-17.0) g/dL Hct 40.9 (38.0-50.0) % MCV 86.7 (80.0-98.0) fL MCH 30.5 (27.0-32.0) pg MCHC 35.2 (31.0-37.0) g/dL RDW Std Deviation 41.4 (28.0-62.0) fl RDW Coeff of Rebecca 13 (11.0-15.0) % Plt Count 251 (150-400) K/uL MPV 9.70 (7.40-12.00) fL Add Manual Diff YES Neutrophils % (Manual) 67 (48.0-80.0) % Lymphocytes % (Manual) 20 (16.0-40.0) % Monocytes % (Manual) 10 (0.0-15.0) % Eosinophils % (Manual) 3 (0.0-7.0) % Nucleated RBC % 0.0 /100WBC Absolute Seg Neuts 6.8 Lymphocytes # (Manual) 2.0 Monocytes # (Manual) 1.0 Eosinophils # (Manual) 0.3 Nucleated RBCs # 0 K/uL INR (0.86-1.11) Sodium 136 (136-146) mmol/L Potassium 4.1 (3.5-5.1) mmol/L Chloride 103 (98-110) mmol/L Carbon Dioxide 23 (21-31) mmol/L BUN 30 H (6.0-23.0) mg/dL Creatinine 1.6 H (0.6-1.5) mg/dL Est Cr Clr Drug Dosing 44.99 mL/min Estimated GFR (MDRD) 43.1 ml/min Glucose 110 (60-110) mg/dL Calcium 9.0 (8.8-10.8) mg/dL Magnesium (1.5-2.3) mEq/L Total Bilirubin 1.2 (0.1-1.5) mg/dL AST 21 (5-40) IU/L ALT 35 (8-54) IU/L Alkaline Phosphatase 106 (40-150) Troponin I < 0.10 (0.0-0.29) NG/ML Total Protein 7.0 (6.0-8.0) g/dL Albumin 3.8 (3.4-4.8) g/dL Globulin 3.2 (2.0-3.5) g/dL Albumin/Globulin Ratio 1.2 L (1.3-2.8) 08/12/16 08/13/16 Range/Units 20:43 05:50 WBC (4.0-11.0) K/uL RBC (4.50-5.90) M/uL Hgb (13.0-17.0) g/dL Hct (38.0-50.0) % MCV (80.0-98.0) fL MCH (27.0-32.0) pg MCHC (31.0-37.0) g/dL RDW Std Deviation (28.0-62.0) fl RDW Coeff of Rebecca (11.0-15.0) % Plt Count (150-400) K/uL MPV (7.40-12.00) fL Add Manual Diff Neutrophils % (Manual) (48.0-80.0) % Lymphocytes % (Manual) (16.0-40.0) % Monocytes % (Manual) (0.0-15.0) % Eosinophils % (Manual) (0.0-7.0) % Nucleated RBC % /100WBC Absolute Seg Neuts Lymphocytes # (Manual) Monocytes # (Manual) Eosinophils # (Manual) Nucleated RBCs # K/uL INR 1.01 (0.86-1.11) Sodium (136-146) mmol/L Potassium (3.5-5.1) mmol/L Chloride (98-110) mmol/L Carbon Dioxide (21-31) mmol/L BUN (6.0-23.0) mg/dL Creatinine (0.6-1.5) mg/dL Est Cr Clr Drug Dosing mL/min Estimated GFR (MDRD) ml/min Glucose (60-110) mg/dL Calcium (8.8-10.8) mg/dL Magnesium 1.8 (1.5-2.3) mEq/L Total Bilirubin (0.1-1.5) mg/dL AST (5-40) IU/L ALT (8-54) IU/L Alkaline Phosphatase (40-150) Troponin I (0.0-0.29) NG/ML Total Protein (6.0-8.0) g/dL Albumin (3.4-4.8) g/dL Globulin (2.0-3.5) g/dL Albumin/Globulin Ratio (1.3-2.8) Med Orders - Current: Current Medications Acetaminophen (Tylenol Extra Strength) 1,000 mg PO QID COUNT [facility]CLUDES [facility] Last Admin: 08/13/16 12:21 Dose: 1,000 mg Albuterol (Ventolin Hfa) 0 gm INH QID PRN PRN Reason: Shortness of Breath Aspirin (Aspirin) 81 mg PO DAILY COUNT INCLUDES [facility] Last Admin: 08/13/16 08:58 Dose: 81 mg Clopidogrel Bisulfate (Plavix) 75 mg PO BID COUNT INCLUDES THE [facility] Last Admin: 08/13/16 08:59 Dose: 75 mg Famotidine (Pepcid) 20 mg PO BEDTIME COUNT INCLUDES [facility] Last Admin: 08/13/16 00:26 Dose: 20 mg Fish Oil (Fish Oil) 2 gm PO DAILY COUNT INCLUDES [facility] Last Admin: 08/13/16 08:59 Dose: 2 gm Furosemide (Lasix) 40 mg PO DAILY COUNT [facility]CLUDES [facility] Last Admin: 08/13/16 08:59 Dose: 40 mg Ipratropium [place] (Atrovent) 0.5 mg INH Q6H COUNT INCLUDES THE [facility] Metoprolol Tartrate (Lopressor) 25 mg PO BID COUNT INCLUDES THE [facility] Last Admin: 08/13/16 08:59 Dose: 25 mg Naproxen (Naprosyn) 500 mg PO Q12HR COUNT INCLUDES [facility] Last Admin: 08/13/16 11:08 Dose: Not Given Budesonide/Formoterol Fumarate 2 Puff 160-4.5mcg Pt Own 0 puff IH BID@0600, 1800 COUNT INCLUDES THE [facility] Last Admin: 08/13/16 06:10 Dose: 2 puff Omeprazole (Omeprazole) 20 mg PO DAILY@0700 COUNT INCLUDES THE [facility] Last Admin: 08/13/16 06:14 Dose: 20 mg Rosuvastatin Calcium (Crestor) 20 mg PO BEDTIME COUNT INCLUDES THE [facility] Last Admin: 08/13/16 00:26 Dose: 20 mg Spironolactone (Aldactone) 12.5 mg PO DAILY COUNT INCLUDES THE [facility] Last Admin: 08/13/16 08:59 Dose: 12.5 mg Trazodone HCl (Trazodone) 50 mg PO BEDTIME COUNT INCLUDES THE [facility] Last Admin: 08/13/16 00:26 Dose: 50 mg *Q Meaningful Use (DIS) - VTE *Q VTE Criteria *Q: - Stroke *Q Stroke Criteria *Q: - AMI *Q AMI Criteria *Q:
--- NOTE | 2016-08-15 10:10 | CR ---
EXAM DATE: 08/12/16 PATIENT'S AGE: 70 Patient: TRACEE YBARRA Facility: [place], [place] Site . Site : 1945 Study: XRay Chest [id number]/23/[id number] 9:19:56 PM Ordering Physician: Alton Del Real Final Report: INDICATION: increased HR, recent VT and stent placed CHEST, ONE VIEW An AP radiograph of the chest was performed. Comparison: 07/27/2016. The lungs appear clear and no pleural effusions are identified. The cardiomediastinal silhouette and pulmonary vasculature appear normal, as do the visualized bones. IMPRESSION: No acute intrathoracic abnormality identified. AMI FOREMAN MD [employer] Dictated by: Shad Foreman MD @ 08/12/2016 21:33:16 (Electronic Signature) Report Signed by Proxy. [facility]
== END 2016-08-13 13:55 | disposition home or self-care (01) ==
LOC: MW.ED 20:13 → MW.MS 20:27
PROVIDERS: ADMIT Family Medicine; ATTEND Family Medicine
DX: J44.9 Chronic obstructive pulmonary disease, unspecified (principal); R09.02 Hypoxemia; Z79.51 Long term (current) use of inhaled steroids; Z79.82 Long term (current) use of aspirin; Z79.02 Long term (current) use of antithrombotics/antiplatelets; Z79.52 Long term (current) use of systemic steroids; Z79.899 Other long term (current) drug therapy; Z88.0 Allergy status to penicillin; Z88.1 Allergy status to other antibiotic agents; I25.2 Old myocardial infarction; K21.9 Gastro-esophageal reflux disease without esophagitis; Z95.5 Presence of coronary angioplasty implant and graft; Z98.890 Other specified postprocedural states; Z87.891 Personal history of nicotine dependence
CPT/HCPCS: 36415; 71010; 71010-26; 80053; 83735; 84484; 85025; 85610; 93005; 99285; 99285-25; A9270-GY; G0378; J7620-GY

== ENCOUNTER 2016-08-25 09:21 | Observation (INO) | payer MEDICARE, OTHER ==
[2016-08-25] MEDS ORDERED: Albuterol/Ipratropium 3.0-0.5 MG/3 ML Neb Soln NEB ONE (09:34)
--- NOTE | 2016-08-25 09:36 | EDM.PDOC ---
ED HPI GENERAL MEDICAL PROBLEM - General Chief Complaint: Chest Pain Stated Complaint: CHEST PAINS Time Seen by Provider: 08/25/16 09:34 - History of Present Illness INITIAL COMMENTS - FREE TEXT/NARRATIVE: HISTORY AND PHYSICAL: History of present illness: Patient is 70-year-old white male with extensive past medical history including cardiac stent 7 who presents with a concern of shortness of breath he's recently had herpes zoster has some discomfort of his right chest with the associated rash he states his shortness of breath has been worse the last several days he has O2 dependent related to his COPD. Review of systems: As per history of present illness and below otherwise all systems reviewed and negative. Past medical history: As per history of present illness and as reviewed below otherwise noncontributory. Surgical history: As per history of present illness and as reviewed below otherwise noncontributory. Social history: No reported history of drug or alcohol abuse. Family history: As per history of present illness and as reviewed below otherwise noncontributory. Physical exam: HEENT: Atraumatic, normocephalic, pupils reactive, negative for conjunctival pallor or scleral icterus, mucous membranes moist, throat clear, neck supple, nontender, trachea midline. Lungs: Clear to auscultation, breath sounds equal bilaterally, chest mild tenderness in the region of his zoster on his right chest. Heart: S1S2, regular, negative for clicks, rubs, or JVD. Abdomen: Soft, nondistended, nontender. Negative for masses or hepatosplenomegaly. Negative for costovertebral tenderness. Pelvis: Stable nontender. Genitourinary: Deferred. Rectal: Deferred. Extremities: Atraumatic, negative for cords or calf pain. Neurovascular unremarkable. Neuro: Awake, alert, oriented. Cranial nerves II through XII unremarkable. Cerebellum unremarkable. Motor and sensory unremarkable throughout. Exam nonfocal. Diagnostics: CBC CMP PT/INR troponin chest x-ray EKG BMP Therapeutics: IV O2 monitor albuterol ipratropium nebulizer Impression: #1 chest pain #2 COPD with exacerbation #3 history of coronary artery disease with stent 7 #4 herpes zoster Definitive disposition and diagnosis as appropriate pending reevaluation and review of above. - Related Data Allergies Allergy/AdvReac Type Severity Reaction Status Date / Time levofloxacin [From Levaquin] Allergy Airway Verified 08/25/16 09:41 Tightness Penicillins Allergy Rash Verified 08/25/16 09:41 Home Meds: Home Meds Albuterol [Ventolin HFA] 2 puff INH QID PRN 06/14/13 [History] Budesonide/Formoterol Fumarate [Symbicort 80-4.5 Mcg Inhaler] 2 puff IH BID 09/05 [History] Aspirin 81 mg PO DAILY 08/12/16 [History] Clopidogrel Bisulfate [Clopidogrel] 75 mg PO BID 08/12/16 [History] Furosemide 40 mg PO DAILY 08/12/16 [History] Ipratropium [place] 2.5 ml INH Q6H 08/12/16 [History] Metoprolol Tartrate 25 mg PO BID 08/12/16 [History] Naproxen [Naprosyn] 500 mg PO Q12HR 08/12/16 [History] Basco-3S/DHA/Epa/Fish Oil/D3 [Fish Oil Gummies] 1 tab PO DAILY 08/12/16 [History ] Omeprazole 20 mg PO DAILY 08/12/16 [History] Rosuvastatin [Crestor] 20 mg PO BEDTIME 08/12/16 [History] Spironolactone [Aldactone] 12.5 mg PO DAILY 08/12/16 [History] traZODone HCl [Trazodone HCl] 50 mg PO BEDTIME 08/12/16 [History] Past Medical History HEENT History: Reports: Hard of Hearing Other HEENT History: wears glasses Cardiovascular History: Reports: [place], Stents Other Cardiovascular History: 7 stents, done july 27, 2016 Respiratory History: Reports: COPD, SOB Gastrointestinal History: Reports: GERD Musculoskeletal History: Reports: None Neurological History: Reports: None Psychiatric History: Reports: None Endocrine/Metabolic History: Reports: None. Denies: Diabetes, Type II Hematologic History: Reports: None Immunologic History: Reports: None Oncologic (Cancer) History: Reports: Colon Dermatologic History: Reports: Other (See Below) Other Dermatologic History: vitalgo - Infectious Disease History Infectious Disease History: Reports: Measles, Mumps - Past Surgical History Head Surgeries/Procedures: Reports: None HEENT Surgical History: Reports: None Cardiovascular Surgical History: Reports: Coronary Artery Stent Respiratory Surgical History: Reports: None GI Surgical History: Reports: None Musculoskeletal Surgical History: Reports: None Oncologic Surgical History: Reports: Other (See Below) Other Oncologic Surgeries/Procedures: colon resection Dermatological Surgical History: Reports: None Social & Family History - Family History Family Medical History: Noncontributory - Tobacco Use Smoking Status *Q: Former Smoker Years of Tobacco use: 50 Packs/Tins Daily: 0.2 Used Tobacco, but Quit: Yes Month Tobacco Last Used: july Second Hand Smoke Exposure: No - Caffeine Use Caffeine Use: Reports: Coffee - Alcohol Use Days Per Week of Alcohol Use: 0 - Recreational Drug Use Recreational Drug Use: No ED ROS GENERAL - Review of Systems Review Of Systems: ROS reveals no pertinent complaints other than HPI. ED EXAM, GENERAL - Physical Exam Exam: See Below (See dictation) Course - Vital Signs Last Recorded V/S: Last Vital Signs Temp 36.7 C 08/25/16 09:21 Pulse 80 08/25/16 09:21 Resp 22 H 08/25/16 09:21 BP 126/86 08/25/16 09:21 Pulse Ox 92 L 08/25/16 09:21 - Orders/Labs/Meds Orders: Active Orders 24 hr Category Date Time Status EKG 12 Lead [EKG Documentation Completion] [RC] STAT Care 08/25/16 09:36 Active RT Aerosol Therapy [RC] ASDIRECTED Care 08/25/16 09:34 Active Labs: Laboratory Tests 08/25/16 08/25/16 08/25/16 Range/Units 09:36 09:36 09:36 WBC 7.37 (4.0-11.0) K/uL RBC 4.58 (4.50-5.90) M/uL Hgb 13.7 (13.0-17.0) g/dL Hct 39.6 (38.0-50.0) % MCV 86.5 (80.0-98.0) fL MCH 29.9 (27.0-32.0) pg MCHC 34.6 (31.0-37.0) g/dL RDW Std Deviation 39.8 (28.0-62.0) fl RDW Coeff of Rebecca 13 (11.0-15.0) % Plt Count 148 L (150-400) K/uL MPV 10.50 (7.40-12.00) fL Nucleated RBC % 0.0 /100WBC Nucleated RBCs # 0 K/uL INR 1.02 (0.86-1.11) Sodium 137 (136-146) mmol/L Potassium 4.1 (3.5-5.1) mmol/L Chloride 106 (98-110) mmol/L BUN 18 (6.0-23.0) mg/dL Creatinine 1.5 (0.6-1.5) mg/dL Est Cr Clr Drug Dosing 47.99 mL/min Estimated GFR (MDRD) 46.4 ml/min Glucose 178 H (60-110) mg/dL Calcium 9.1 (8.8-10.8) mg/dL Total Bilirubin 1.3 (0.1-1.5) mg/dL AST 15 (5-40) IU/L ALT 15 (8-54) IU/L Alkaline Phosphatase 94 (40-150) Troponin I (0.0-0.29) NG/ML B-Natriuretic Peptide (<100) PG/ML Total Protein 6.9 (6.0-8.0) g/dL Albumin 3.8 (3.4-4.8) g/dL Globulin 3.1 (2.0-3.5) g/dL Albumin/Globulin Ratio 1.2 L (1.3-2.8) 08/25/16 08/25/16 Range/Units 09:36 09:36 WBC (4.0-11.0) K/uL RBC (4.50-5.90) M/uL Hgb (13.0-17.0) g/dL Hct (38.0-50.0) % MCV (80.0-98.0) fL MCH (27.0-32.0) pg MCHC (31.0-37.0) g/dL RDW Std Deviation (28.0-62.0) fl RDW Coeff of Rebecca (11.0-15.0) % Plt Count (150-400) K/uL MPV (7.40-12.00) fL Nucleated RBC % /100WBC Nucleated RBCs # K/uL INR (0.86-1.11) Sodium (136-146) mmol/L Potassium (3.5-5.1) mmol/L Chloride (98-110) mmol/L BUN (6.0-23.0) mg/dL Creatinine (0.6-1.5) mg/dL Est Cr Clr Drug Dosing mL/min Estimated GFR (MDRD) ml/min Glucose (60-110) mg/dL Calcium (8.8-10.8) mg/dL Total Bilirubin (0.1-1.5) mg/dL AST (5-40) IU/L ALT (8-54) IU/L Alkaline Phosphatase (40-150) Troponin I < 0.10 (0.0-0.29) NG/ML B-Natriuretic Peptide 248 H (<100) PG/ML Total Protein (6.0-8.0) g/dL Albumin (3.4-4.8) g/dL Globulin (2.0-3.5) g/dL Albumin/Globulin Ratio (1.3-2.8) Meds: Medications Discontinued Medications Generic Name Dose Route Start Last Admin Trade Name Freq PRN Reason Stop Dose Admin Albuterol/Ipratropium 3 ml 08/25/16 09:34 08/25/16 10:05 Duoneb 3.0-0.5 Mg/3 Ml NEB 08/25/16 09:35 3 ml ONETIME ONE Administration Departure - Departure Time of Disposition: 10:36 Disposition: Refer to Observation Condition: Good Clinical Impression: Herpes zoster, Dyspnea, COPD (chronic obstructive pulmonary disease), Coronary artery disease - Discharge Information Forms: ED Department Discharge - My Orders Last 24 Hours: My Active Orders 08/25/16 09:34 RT Aerosol Therapy [RC] ASDIRECTED 08/25/16 09:36 EKG 12 Lead [EKG Documentation Completion] [RC] STAT - Assessment/Plan Last 24 Hours: My Active Orders 08/25/16 09:34 RT Aerosol Therapy [RC] ASDIRECTED 08/25/16 09:36 EKG 12 Lead [EKG Documentation Completion] [RC] STAT
--- NOTE | 2016-08-25 10:24 | CR ---
EXAMINATION: Portable chest radiograph. HISTORY: Chest pain. FINDINGS: The trachea is midline. The cardiomediastinal silhouette is within normal limits. No focal consolida tion, pleural effusion, or pneumothorax. The basilar atelectasis and chronic interstitial prominence . Osseous structures appear unremarkable. IMPRESSION: Chronic interstitial prominence and bibasilar atelectasis/scarring without an acute cardiopulmonary finding.
[2016-08-25] MEDS ORDERED: Albuterol 8 GM Inhaler INH PRN (11:57)
[2016-08-25] MEDS ORDERED: valACYclovir 500 MG Tab PO SCH (12:00)
--- NOTE | 2016-08-25 12:10 | PCM.HP ---
[id number] yo male with pmh of COPD and recent WI s/p stent x7 who presents with shortness of breath. He reports that following his WI he was able to walk around the block but this last week he has difficulty walking around the house. He denies any weight gain or swelling in the legs. He reports some chest discomfort while laying down at night but he contributed his chest pain from chest compression he had during his WI. He developed a rash on the right side of his chest yesterday which started out as burnging sensation before the rash appeared. He was seen in the ED on 08/22/16 with the same complaint. CT chest angiogram reported no PE, multiple lung nodules and calcified plaques. Chest Pain Pain Score (Numeric/FACES): 3 Left Axillae Pain Score (Numeric/FACES): 0 - Related Data Allergies/Adverse Reactions: Allergies Allergy/AdvReac Type Severity Reaction Status Date / Time levofloxacin [From Levaquin] Allergy Airway Verified 08/25/16 09:41 Tightness Penicillins Allergy Rash Verified 08/25/16 09:41 Home Medications: Home Meds Albuterol [Ventolin HFA] 2 puff INH QID PRN 06/14/13 [History] Aspirin 81 mg PO DAILY 08/12/16 [History] Clopidogrel Bisulfate [Clopidogrel] 75 mg PO BID 08/12/16 [History] Furosemide 40 mg PO DAILY 08/12/16 [History] Ipratropium [place] 2.5 ml INH Q6H 08/12/16 [History] Metoprolol Tartrate 25 mg PO BID 08/12/16 [History] Naproxen [Naprosyn] 500 mg PO Q12HR 08/12/16 [History] [place]-3S/DHA/Epa/Fish Oil/D3 [Fish Oil Gummies] 1 tab PO DAILY 08/12/16 [History ] Omeprazole 20 mg PO DAILY 08/12/16 [History] Rosuvastatin [Crestor] 20 mg PO BEDTIME 08/12/16 [History] Spironolactone [Aldactone] 12.5 mg PO DAILY 08/12/16 [History] traZODone HCl [Trazodone HCl] 50 mg PO BEDTIME 08/12/16 [History] Acetaminophen [Acetaminophen Extra Strength] 1,000 mg PO Q6HR PRN 08/25/16 [ History] Albuterol Sulfate 2.5 mg IH Q6H 08/25/16 [History] Budesonide/Formoterol [Symbicort 160-4.5 MCG] 2 inh IH BID 08/25/16 [History] valACYclovir [Valtrex] 1,000 mg PO Q8H 6 Days 08/26/16 [Rx] Past Medical History HEENT History: Reports: Hard of Hearing Other HEENT History: wears glasses Cardiovascular History: Reports: [place], Stents Other Cardiovascular History: 7 stents, done july 27, 2016 Respiratory History: Reports: COPD, SOB Gastrointestinal History: Reports: GERD Musculoskeletal History: Reports: None Neurological History: Reports: None Psychiatric History: Reports: None Endocrine/Metabolic History: Reports: None. Denies: Diabetes, Type II Hematologic History: Reports: None Immunologic History: Reports: None Oncologic (Cancer) History: Reports: Colon Dermatologic History: Reports: Other (See Below) Other Dermatologic History: vitalgo - Infectious Disease History Infectious Disease History: Reports: Measles, Mumps - Past Surgical History Head Surgeries/Procedures: Reports: None HEENT Surgical History: Reports: None Cardiovascular Surgical History: Reports: Coronary Artery Stent Respiratory Surgical History: Reports: None GI Surgical History: Reports: None Musculoskeletal Surgical History: Reports: None Oncologic Surgical History: Reports: Other (See Below) Other Oncologic Surgeries/Procedures: colon resection Dermatological Surgical History: Reports: None Social & Family History - Family History Family Medical History: Noncontributory - Tobacco Use Smoking Status *Q: Former Smoker Years of Tobacco use: 50 Packs/Tins Daily: 0.2 Used Tobacco, but Quit: Yes Month Tobacco Last Used: july Second Hand Smoke Exposure: No - Caffeine Use Caffeine Use: Reports: Coffee - Alcohol Use Days Per Week of Alcohol Use: 0 - Recreational Drug Use Recreational Drug Use: No H&P Review of Systems - Review of Systems: Review Of Systems: ROS reveals no pertinent complaints other than HPI. Exam - Exam Exam: See Below - Vital Signs Vital Signs: Last Vital Signs Temp 36.2 C 08/25/16 11:05 Pulse 63 08/25/16 11:05 Resp 20 08/25/16 11:05 BP 118/65 08/25/16 11:05 Pulse Ox 92 L 08/25/16 11:05 Weight: 74.9 kg - Exam General: Alert, Oriented, 4 Neck: No: JVD Lungs: Clear to Auscultation, Normal Respiratory Effort Cardiovascular: Regular Rate, Regular Rhythm Extremities: Normal Inspection. No: Edema Skin: Warm, Dry, Intact Neurological: No: Focal Deficit - Patient Data Result Diagrams: 08/25/16 09:36 08/25/16 09:36 *Q Meaningful Use (ADM) - VTE *Q VTE Criteria *Q: - Stroke *Q Stroke Criteria *Q: - AMI *Q AMI Criteria *Q: Problem List Initiated/Reviewed/Updated: Yes Orders Last 24hrs: Active Orders 24 hr Category Date Time Status Echo 2D wo Cont [US] Routine Exams 08/25/16 11:58 Ordered Acetaminophen [Tylenol Extra Strength] Med 08/25/16 11:57 Ordered 1,000 mg PO Q6HR PRN Albuterol [Ventolin HFA] Med 08/25/16 11:57 Ordered 2 puff INH QID PRN Aspirin Med 08/26/16 09:00 Ordered 81 mg PO DAILY Clopidogrel [Plavix] Med 08/25/16 21:00 Ordered 75 mg PO BID Furosemide [Lasix] Med 08/26/16 09:00 Ordered 40 mg PO DAILY Ipratropium [place] [Ipratropium [place]] Med 08/25/16 12:00 Ordered 2.5 ml INH Q6H Metoprolol Tartrate [Lopressor] Med 08/25/16 21:00 Ordered 25 mg PO BID Omeprazole [Omeprazole] Med 08/26/16 09:00 Ordered 20 mg PO DAILY Rosuvastatin [Crestor] Med 08/25/16 21:00 Ordered 20 mg PO BEDTIME Spironolactone [Aldactone] Med 08/26/16 09:00 Ordered 12.5 mg PO DAILY traZODone Med 08/25/16 21:00 Ordered 50 mg PO BEDTIME valACYclovir [Valtrex] Med 08/25/16 12:00 Ordered 100 mg PO Q8H Medication Orders Acetaminophen (Tylenol Extra Strength) 1,000 mg PO Q6HR PRN PRN Reason: Pain Albuterol (Ventolin Hfa) 8 gm INH QID PRN PRN Reason: Shortness of Breath Aspirin (Aspirin) 81 mg PO DAILY MICHAEL Clopidogrel Bisulfate (Plavix) 75 mg PO BID MICHAEL Furosemide (Lasix) 40 mg PO DAILY MICHAEL Ipratropium [place] (Atrovent) 0.5 mg INH Q6H MICHAEL Metoprolol Tartrate (Lopressor) 25 mg PO BIDMEALS MICHAEL Omeprazole (Omeprazole) 20 mg PO ACBREAKFAST MICHAEL Rosuvastatin Calcium (Crestor) 20 mg PO BEDTIME MICHAEL Spironolactone (Aldactone) 12.5 mg PO DAILY MICHAEL Trazodone HCl (Trazodone) 50 mg PO BEDTIME MICHAEL Valacyclovir HCl (Valtrex) 100 mg PO Q8H MICHAEL Assessment/Plan Comment:: 70 yo male with pmh of COPD and CAD who presents with marked increase in exercise intolerance. Will monitor overnight on telemetry. Dr. Lazo has been consulted.
[2016-08-25] MEDS: Acetaminophen 500 MG Tab PO PRN ×2 (12:53→19:42)
[2016-08-25] MEDS: valACYclovir 500 MG Tab PO SCH ×2 (13:07→21:55)
[2016-08-25] MEDS: Ipratropium 0.02% 0.5 MG/2.5 ML Neb Soln INH SCH ×2 (13:23→18:20)
[2016-08-25] MEDS ORDERED: Magnesium Sulfate/Water 2 GM in Premix Bag 1 BAG IV ONE (14:14)
[2016-08-25] MEDS: Metoprolol Tartrate 25 MG Tab PO SCH (17:28)
--- NOTE | 2016-08-25 19:25 | CONS ---
DATE OF CONSULTATION: DATE OF : 1945 PRIMARY CARE PHYSICIAN: Alfred Oleary M.D. 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 At that time, he was admitted in the ICU for four days and transferred to here for two days and got a cardiac rehab for 3 days. After he was discharged, he was doing very well. He can walk around the CT block probably half a mile for three or four times a day, even though he had been using the oxygen at home 2 L at a day time, probably 1 L at a nighttime. However, over the past week or so, he noticed that his energy or breathing seemed to be getting worse. When he walked across the hallway, he is being short of breath and it was very obvious to him. He also complained about the right chest wall pain as well and noted some rashes on his right chest wall. He also is saying that when he was admitted and transferred to [place] at that time, he had shoulder pain and feeling nauseous and vomited, but at this time he denies chest pain and he feel like he has some productive cough however, it seemed to be less than prior to the heart attack. No leg swelling. No orthopnea. No PND. No passing out. No feeling dizzy. REVIEW OF SYSTEMS: A 12-point review of systems seem to be negative except as indicated in the HPI. MEDICATIONS: Including aspirin 81 mg once a day, Plavix 75 mg, Lasix 40 mg once a day, Lopressor 25 mg twice a day, Crestor 20 mg once a day, and Aldactone 12.5 mg once a day. ALLERGIES: Allergy levels fall sustaining penicillin. PAST MEDICAL HISTORY: Including history of NH status post PCI x7, COPD and inferior wall STEMI. SOCIAL HISTORY: Heavy smoker, recently quit. Occasional alcoholic consumption. No history of IV drug use. FAMILY HISTORY: No family history of CAD. PHYSICAL EXAMINATION: VITAL SIGNS: Blood pressure 120/88, heart rate of 70, temperature 36.6, respirations 20, and O2 sat 94 on 2 L. HEENT: No pallor. No jaundice. No JVD. HEART: Normal S1 and S2. No murmur. LUNGS: Clear. Decreased breath sounds. No crackles. No wheezing. CHEST: On the right-sided chest wall with a shingle as well as the right back. No open wound yet. ABDOMEN: Soft, nontender. Bowel sounds are present. No hepatosplenomegaly. EXTREMITIES: No edema. LABORATORY INVESTIGATION: CBC showed WBC 7, hematocrit 39, hemoglobin 13, and platelets 148. INR 1.02. Sodium 137, potassium 4.1, chloride 106, bicarb 18, BUN 18, creatinine 1.5, GFR 47, and glucose 178. Liver function is normal. BNP 248. Troponin less than 0.1. EKG shows sinus rhythm. No ST abnormality with PVC, heart rate of 69, QRS duration 98, and QTc interval 415. ASSESSMENT AND PLAN: This is a 70-year-old male, history of coronary artery disease status post inferior wall myocardial infarction, status post PCI x7, cardiac arrest with increasing shortness of breath. He is being admitted for acute coronary syndrome rule out. I would recommend to cycle cardiac enzymes as well as repeat EKG in the morning. Echocardiogram, I look at by myself prelim report his echocardiogram showed preserved ejection fraction at least. No significant valvular abnormalities. I would recommend to continue aspirin and Plavix as well as Lopressor 25 twice a day and crestor 20 mg mg once a day. Also, he is on diuretics, Lasix, and Aldactone. I would like to get a record from [place] to review. He probably needs a stress test as an outpatient and he also is going to have an appointment with Dr. Ryan next . AURELIO / GREY /[id number] PATRICIA
[2016-08-25] MEDS ORDERED: traZODone 50 MG Tab PO SCH (21:00)
[2016-08-25] MEDS ORDERED: Rosuvastatin 10 MG Tab PO SCH (21:00)
[2016-08-25] MEDS: Clopidogrel 75 MG Tab PO SCH (21:56)
[2016-08-25] MEDS: SYMBICORT IH SCH (23:12)
[2016-08-26] MEDS: Ipratropium 0.02% 0.5 MG/2.5 ML Neb Soln INH SCH ×4 (00:25→11:25)
[2016-08-26] MEDS: valACYclovir 500 MG Tab PO SCH ×2 (05:11→12:50)
[2016-08-26] MEDS ORDERED: Omeprazole 20 MG Cap.CR PO SCH (07:30)
[2016-08-26] MEDS: Acetaminophen 500 MG Tab PO PRN (08:45)
[2016-08-26] MEDS: Clopidogrel 75 MG Tab PO SCH (08:48)
[2016-08-26] MEDS: Metoprolol Tartrate 25 MG Tab PO SCH (08:48)
[2016-08-26] MEDS: SYMBICORT IH SCH (08:52)
[2016-08-26] MEDS ORDERED: Furosemide 40 MG Tab PO SCH (09:00)
[2016-08-26] MEDS ORDERED: Aspirin 81 MG Tab.Chew PO SCH (09:00)
[2016-08-26] MEDS ORDERED: Spironolactone 25 MG Tab PO SCH (09:00)
--- NOTE | 2016-08-26 11:22 | PCM.DCSUM1 ---
Discharge Summary - Hospital Course Free Text/Narrative:: 70-year-old male with history of COPD, CAD status post inferior wall myocardial infarction PCI last month admitted for rule out acute coronary syndrome. He has been feeling increased shortness of breath, right-sided chest pain with a rash. Chest x-ray revealed bibasilar atelectasis, CT Angiocath chest negative for PE. His EKG did not show acute ST or T-wave changes. His serial troponins x3 were negative. Echocardiogram showed a preserved ejection fraction 55-60%. Cardiology was consulted. He recommended to continue aspirin Plavix, Lopressor, Crestor, Aldactone. Patient was also started on Valtrex for right chest herpes zoster. During the course of hospitalization patient no longer had chest pain or shortness of breath. His rash was improving. He has [facility] . He is to discuss Plavix 75 mg twice a day whether to continue twice a versus once a day with a leisure travel agent. He is discharged with his home medications along with Valtrex. He is to followup with Dr. Oleary as PCP. - Discharge Data Discharge Date: 08/26/16 Discharge Disposition: Home, Self-Care 01 Condition: Fair - Patient Summary/Data Consults: Consultations 08/25/16 12:09 Consult to Physician [CONS] Routine - Patient Instructions Diet: Heart Healthy Diet Activity: As Tolerated Driving: Do Not Drive Showering/Bathing: May Shower Notify Provider of: Fever, Increased Pain, Swelling and Redness, Drainage, Nausea and/or Vomiting - Discharge Plan Prescriptions/Med Rec: valACYclovir [Valtrex] 1,000 mg PO Q8H 6 Days Home Medications: Home Meds Albuterol [Ventolin HFA] 2 puff INH QID PRN 06/14/13 [History] Aspirin 81 mg PO DAILY 08/12/16 [History] Clopidogrel Bisulfate [Clopidogrel] 75 mg PO BID 08/12/16 [History] Furosemide 40 mg PO DAILY 08/12/16 [History] Ipratropium [place] 2.5 ml INH Q6H 08/12/16 [History] Metoprolol Tartrate 25 mg PO BID 08/12/16 [History] Naproxen [Naprosyn] 500 mg PO Q12HR 08/12/16 [History] [place]-3S/DHA/Epa/Fish Oil/D3 [Fish Oil Gummies] 1 tab PO DAILY 08/12/16 [History ] Omeprazole 20 mg PO DAILY 08/12/16 [History] Rosuvastatin [Crestor] 20 mg PO BEDTIME 08/12/16 [History] Spironolactone [Aldactone] 12.5 mg PO DAILY 08/12/16 [History] traZODone HCl [Trazodone HCl] 50 mg PO BEDTIME 08/12/16 [History] Acetaminophen [Acetaminophen Extra Strength] 1,000 mg PO Q6HR PRN 08/25/16 [ History] Albuterol Sulfate 2.5 mg IH Q6H 08/25/16 [History] Budesonide/Formoterol [Symbicort 160-4.5 MCG] 2 inh IH BID 08/25/16 [History] valACYclovir [Valtrex] 1,000 mg PO Q8H 6 Days 08/26/16 [Rx] Patient Handouts: Shingles, [id number], Valacyclovir caplets, Chronic Obstructive Pulmonary Disease, [id number] Referrals: [facility] [Outside] Alfred Oleary MD [Primary Care Provider] - 09/01/16 10:00 am - General Info Date of Service: 08/26/16 Functional Status: Reports: pain controlled, tolerating diet, ambulating, urinating - Review of Systems General: Reports: No Symptoms HEENT: Reports: no symptoms Pulmonary: Reports: shortness of breath (improved) Cardiovascular: Reports: No Symptoms Gastrointestinal: Reports: No symptoms Genitourinary: Reports: no symptoms Musculoskeletal: Reports: no symptoms Skin: Reports: rash (Improving) Neurological: Reports: No Symptoms Psychiatric: Reports: no symptoms - Patient Data Vitals - Most Recent: Last Vital Signs Temp 97.7 F 08/26/16 08:00 Pulse 91 08/26/16 08:48 Resp 16 08/26/16 08:00 BP 116/70 08/26/16 08:48 Pulse Ox 93 L 08/26/16 08:00 Weight - Most Recent: 74.9 kg I&O - Last 24 hours: Intake & Output 08/25/16 08/26/16 08/26/16 22:59 06:59 14:59 Intake Total 750 500 Output Total 1200 Balance -450 500 Lab Results - Last 24 hrs: Laboratory Results - last 24 hr 08/25/16 08/26/16 Range/Units 22:45 06:52 Troponin I < 0.10 < 0.10 (0.0-0.29) NG/ML Med Orders - Current: Current Medications Acetaminophen (Tylenol Extra Strength) 1,000 mg PO Q6HR PRN PRN Reason: Pain Last Admin: 08/26/16 08:45 Dose: 1,000 mg Albuterol (Ventolin Hfa) 8 gm INH QID PRN PRN Reason: Shortness of Breath Aspirin (Aspirin) 81 mg PO DAILY [facility] Last Admin: 08/26/16 08:50 Dose: 81 mg Clopidogrel Bisulfate (Plavix) 75 mg PO BID [facility] Last Admin: 08/26/16 08:48 Dose: 75 mg Furosemide (Lasix) 40 mg PO DAILY [facility] Last Admin: 08/26/16 08:50 Dose: 40 mg Ipratropium [place] (Atrovent) 0.5 mg INH Q6H [facility] Last Admin: 08/26/16 06:15 Dose: 0.5 mg Metoprolol Tartrate (Lopressor) 25 mg PO BIDMEALS [facility] Last Admin: 08/26/16 08:48 Dose: 25 mg Symbicort 160-4.5 (Mcg Pt Own) 2 inh IH BID [facility] Last Admin: 08/26/16 08:52 Dose: 2 inh Omeprazole (Omeprazole) 20 mg PO ACBREAKFAST [facility] Last Admin: 08/26/16 07:18 Dose: 20 mg Rosuvastatin Calcium (Crestor) 20 mg PO BEDTIME [facility] Last Admin: 08/25/16 21:56 Dose: 20 mg Spironolactone (Aldactone) 12.5 mg PO DAILY [facility] Last Admin: 08/26/16 08:35 Dose: 12.5 mg Trazodone HCl (Trazodone) 50 mg PO BEDTIME [facility] Last Admin: 08/25/16 21:56 Dose: 50 mg Valacyclovir HCl (Valtrex) 1,000 mg PO Q8H [facility] Last Admin: 08/26/16 05:11 Dose: 1,000 mg Discontinued Medications Albuterol/Ipratropium (Duoneb 3.0-0.5 Mg/3 Ml) 3 ml NEB ONETIME ONE Stop: 08/25/16 09:35 Last Admin: 08/25/16 10:05 Dose: 3 ml Magnesium Sulfate 2 gm/ Premix 50 mls @ 50 mls/hr IV ONETIME ONE Stop: 08/25/16 15:13 Last Admin: 08/25/16 14:51 Dose: 50 mls/hr Valacyclovir HCl (Valtrex) 100 mg PO Q8H MICHAEL Last Admin: 08/25/16 13:03 Dose: Not Given - Exam General: Reports: alert, oriented, cooperative HEENT: Reports: Pupils equal, EOMI Neck: Reports: supple, trachea midline Lungs: Reports: Normal respiratory effort, Decreased breath sounds Cardiovascular: Reports: Regular Rate, Regular Rhythm Abdomen: Reports: bowel sounds present, soft Back Exam: Reports: Normal Inspection, Full Range of Motion Extremities: Reports: no edema Skin: Reports: rash (right anterior chest above nipple line: Erythematous vesicular lesions) Neurological: Reports: no new focal deficit Psy/Mental Status: Reports: alert, normal affect, normal mood *Q Meaningful Use (DIS) - VTE *Q VTE Criteria *Q: - Stroke *Q Stroke Criteria *Q: - AMI *Q AMI Criteria *Q:
[2016-08-26 11:41] VITALS: BP 129/62
--- NOTE | 2016-08-29 15:57 | ECHO ---
EXAM DATE: 08/25/16 PATIENT'S AGE: 70 The echocardiogram report can be seen in this patient's EMR (Electronic Medical Record) in the Reports section. The report has also been scanned into PACS. PATRICIA
== END 2016-08-26 12:30 | disposition home or self-care (01) ==
LOC: MW.ED 09:21 → MW.MS 10:49
PROVIDERS: ADMIT Internal Medicine; ATTEND Internal Medicine
DX: R06.02 Shortness of breath (principal); J44.9 Chronic obstructive pulmonary disease, unspecified; I25.10 Atherosclerotic heart disease of native coronary artery without angina pectoris; I25.2 Old myocardial infarction; J98.11 Atelectasis; B02.8 Zoster with other complications; K21.9 Gastro-esophageal reflux disease without esophagitis; Z88.0 Allergy status to penicillin; Z88.1 Allergy status to other antibiotic agents; Z79.02 Long term (current) use of antithrombotics/antiplatelets; Z79.82 Long term (current) use of aspirin; Z79.899 Other long term (current) drug therapy; Z85.038 Personal history of other malignant neoplasm of large intestine; Z87.891 Personal history of nicotine dependence; Z95.5 Presence of coronary angioplasty implant and graft; Z90.49 Acquired absence of other specified parts of digestive tract
CPT/HCPCS: 36415; 71010; 80053; 83735; 83880; 84484; 85027; 85610; 93005; 93306; 94640; 94664; 96365; 99285; A9270; G0378; J3475; 99283

== ENCOUNTER 2017-03-21 17:26 | Observation (INO) | payer MEDICARE, OTHER ==
--- NOTE | 2017-03-21 17:33 | EDM.PDOC ---
ED HPI GENERAL MEDICAL PROBLEM - General Stated Complaint: HEART ISSUES Time Seen by Provider: 03/21/17 17:30 Source of Information: Reports: Patient History Limitations: Reports: No Limitations - History of Present Illness INITIAL COMMENTS - FREE TEXT/NARRATIVE: HISTORY AND PHYSICAL: []71-year-old male presenting with shortness of breath/low heart rate History of Present Illness: [][facility] Patient has history of stent placement 7 History of COPD & NV Admission on 08/25/16 CT chest angiogram reported with no PE on 08/22/16 multiple lung nodules and calcified plaques patient was followed up by Dr. Lazo. are Former smoker does drink caffeine Review of systems does not have any headaches, doesn't have any difficulty with joint swelling at this time, no chest pain, shortness of breath or heart palpitations, does not have any abdominal pain. Review of Systems: As per history of present illness and below otherwise all systems reviewed and negative. Past medical history: As per history of present illness and as reviewed below otherwise noncontributory. Surgical history: As per history of present illness and as reviewed below otherwise noncontributory. Social history: No reported history of drug or alcohol abuse. Family history: As per history of present illness and as reviewed below otherwise noncontributory. Physical exam: Alert and oriented male who is speaking in full sentences has no shortness of breath or chest pain at this time HEENT: Atraumatic, normocehpalic, pupils reactive, negative for conjunctival pallor or scleral icterus, mucous membranes moist, throat clear, neck supple, nontender, trachea midline. Lungs: Clear to auscultation, breath sounds equal bilaterally, chest non tender. Heart: S1S2, regular, negative for clicks, rubs, or JVD. Abdomen: Soft, nondistended, nontender. Negative for masses or hepatossplenmegaly. Negative for costovertebral tenderness. Pelvis: Stable nontender. Genitourinary: Deferred. Rectal: Deferred Extremities: Atraumatic, negative for cords or calf pain. Neurovascular unremarkable. Neuro: Awake, alert, oriented. Cranial nerves II through XII unremarkable. Cerebellum unremarkable. Motor and sensory unremarkable throughout. Exam nonfocal. Discussed with the patient that I would like to observe him overnight on telemetry and he is agreeable to this course of action his has gone home to retrieve his meds. Diagnostics: [EKG CBC CMP troponin] Therapeutics: []Saline lock Impression: []Anginal pain rule out Plan: [Referred for observation on telemetry] Definitive disposition and diagnosis as appropriate pending reevaluation and review of above. Onset: Today, Sudden Duration: Getting Worse Location: Reports: Chest Quality: Reports: Same as Previous Episode Improves with: Reports: None Associated Symptoms: Reports: Shortness of Breath - Related Data Allergies Allergy/AdvReac Type Severity Reaction Status Date / Time levofloxacin [From Levaquin] Allergy Airway Verified 08/25/16 09:41 Tightness Penicillins Allergy Rash Verified 08/25/16 09:41 Home Meds: Home Meds Albuterol [Ventolin HFA] 2 puff INH QID PRN 06/14/13 [History] Aspirin 81 mg PO DAILY 08/12/16 [History] Clopidogrel Bisulfate [Clopidogrel] 75 mg PO BID 08/12/16 [History] Furosemide 40 mg PO DAILY 08/12/16 [History] Ipratropium [place] 2.5 ml INH Q6HRRT 08/12/16 [History] Metoprolol Tartrate 50 mg PO BIDMEALS 08/12/16 [History] Naproxen [Naprosyn] 500 mg PO Q12HR 08/12/16 [History] Omeprazole 20 mg PO ACBREAKFAST 08/12/16 [History] Rosuvastatin [Crestor] 20 mg PO BEDTIME 08/12/16 [History] Spironolactone [Aldactone] 12.5 mg PO DAILY 08/12/16 [History] traZODone HCl [Trazodone HCl] 50 mg PO BEDTIME 08/12/16 [History] Acetaminophen [Acetaminophen Extra Strength] 1,000 mg PO Q6HR PRN 08/25/16 [ History] Budesonide/Formoterol [Symbicort 160-4.5 MCG] 2 inh IH BID 08/25/16 [History] Lisinopril 10 mg PO BID 03/21/17 [History] Ranitidine HCl [Ranitidine] 300 mg PO BEDTIME 03/21/17 [History] Past Medical History HEENT History: Reports: Hard of Hearing Other HEENT History: wears glasses Cardiovascular History: Reports: [place], Stents Other Cardiovascular History: 7 stents, done july 27, 2016 Respiratory History: Reports: COPD, SOB Gastrointestinal History: Reports: GERD Musculoskeletal History: Reports: None Neurological History: Reports: None Psychiatric History: Reports: None Endocrine/Metabolic History: Reports: None. Denies: Diabetes, Type II Hematologic History: Reports: None Immunologic History: Reports: None Oncologic (Cancer) History: Reports: Colon Dermatologic History: Reports: Other (See Below) Other Dermatologic History: vitalgo - Infectious Disease History Infectious Disease History: Reports: Measles, Mumps - Past Surgical History Head Surgeries/Procedures: Reports: None HEENT Surgical History: Reports: None Cardiovascular Surgical History: Reports: Coronary Artery Stent Respiratory Surgical History: Reports: None GI Surgical History: Reports: None Musculoskeletal Surgical History: Reports: None Oncologic Surgical History: Reports: Other (See Below) Other Oncologic Surgeries/Procedures: colon resection Dermatological Surgical History: Reports: None Social & Family History - Family History Family Medical History: Noncontributory Oncologic: Reports: Esophageal - Tobacco Use Smoking Status *Q: Former Smoker Years of Tobacco use: 50 Packs/Tins Daily: 0.2 Used Tobacco, but Quit: Yes Month Tobacco Last Used: july Second Hand Smoke Exposure: No - Caffeine Use Caffeine Use: Reports: Coffee Other Caffeine Use: 1 cup per day - Alcohol Use Days Per Week of Alcohol Use: 0 - Recreational Drug Use Recreational Drug Use: No ED ROS GENERAL - Review of Systems Review Of Systems: ROS reveals no pertinent complaints other than HPI. ED EXAM, GENERAL - Physical Exam Exam: See Below (see dictation) Course - Vital Signs Last Recorded V/S: Last Vital Signs Temp 37.0 C 03/21/17 17:38 Pulse 70 03/21/17 17:38 Resp 18 03/21/17 17:38 BP 121/59 L 03/21/17 17:38 Pulse Ox 96 03/21/17 17:38 - Orders/Labs/Meds Orders: Active Orders 24 hr Category Date Time Status Cardiac Monitoring [RC] . DIRECTED Care 03/21/17 17:34 Active EKG Documentation Completion [RC] STAT Care 03/21/17 17:35 Active Oxygen Therapy, ED [RC] ASDIRECTED Care 03/21/17 17:34 Active Chest 2V [CR] Stat Exams 03/21/17 17:35 Taken COMPREHENSIVE METABOLIC PN,CMP [CHEM] Stat Lab 03/21/17 17:50 Received TROPONIN I [CHEM] Stat Lab 03/21/17 17:50 Received Sodium Chloride 0.9% [Saline Flush] Med 03/21/17 17:34 Active 10 ml FLUSH ASDIRECTED PRN Sodium Chloride 0.9% [Saline Flush] Med 03/21/17 17:34 Active 2.5 ml FLUSH ASDIRECTED PRN Saline Lock Insert [OM.PC] Stat Oth 03/21/17 17:34 Ordered Medication Orders Sodium Chloride (Saline Flush) 10 ml FLUSH ASDIRECTED PRN PRN Reason: Keep Vein Open Sodium Chloride (Saline Flush) 2.5 ml FLUSH ASDIRECTED PRN PRN Reason: Keep Vein Open Labs: Laboratory Tests 03/21/17 03/21/17 Range/Units 17:43 17:50 WBC 8.54 (4.0-11.0) K/uL RBC 4.80 (4.50-5.90) M/uL Hgb 14.3 (13.0-17.0) g/dL Hct 41.2 (38.0-50.0) % MCV 85.8 (80.0-98.0) fL MCH 29.8 (27.0-32.0) pg MCHC 34.7 (31.0-37.0) g/dL RDW Std Deviation 41.0 (28.0-62.0) fl RDW Coeff of Rebecca 13 (11.0-15.0) % Plt Count 158 (150-400) K/uL MPV 9.80 (7.40-12.00) fL Neut % (Auto) 64.7 (48.0-80.0) % Lymph % (Auto) 21.8 (16.0-40.0) % [place] % (Auto) 10.1 (0.0-15.0) % Eos % (Auto) 2.9 (0.0-7.0) % Baso % (Auto) 0.5 (0.0-1.5) % Neut # (Auto) 5.5 (1.4-5.7) K/uL Lymph # (Auto) 1.9 (0.6-2.4) K/uL [place] # (Auto) 0.9 H (0.0-0.8) K/uL Eos # (Auto) 0.3 (0.0-0.7) K/uL Baso # (Auto) 0.0 (0.0-0.1) K/uL Nucleated RBC % 0.0 /100WBC Nucleated RBCs # 0 K/uL Urine Color YELLOW Urine Appearance CLEAR Urine pH 6.0 (5.0-8.0) Ur Specific [place] 1.010 (1.001-1.035) Urine Protein NEGATIVE (NEGATIVE) mg/dL Urine Glucose (UA) NEGATIVE (NEGATIVE) mg/dL Urine Ketones NEGATIVE (NEGATIVE) mg/dL Urine Occult Blood NEGATIVE (NEGATIVE) Urine Nitrite NEGATIVE (NEGATIVE) Urine Bilirubin NEGATIVE (NEGATIVE) Urine Urobilinogen 0.2 (<2.0) EU/dL Ur Leukocyte Esterase NEGATIVE (NEGATIVE) Urine RBC 0-1 (0-2/HPF) Urine WBC 0-1 (0-5/HPF) Ur Epithelial Cells RARE (NONE-FEW) Urine Bacteria RARE (NEGATIVE) Meds: Medications Generic Name Dose Route Start Last Admin Trade Name Freq PRN Reason Stop Dose Admin Sodium Chloride 10 ml 03/21/17 17:34 Saline Flush FLUSH ASDIRECTED PRN Keep Vein Open Sodium Chloride 2.5 ml 03/21/17 17:34 Saline Flush FLUSH ASDIRECTED PRN Keep Vein Open Departure - Departure Time of Disposition: 18:31 Disposition: Refer to Observation Condition: Good Clinical Impression: Anginal pain Dyspnea Qualifiers: Dyspnea type: dyspnea on exertion Qualified Code(s): R06.09 - Other forms of dyspnea Referrals: Alfred Oleary MD [Primary Care Provider] - - My Orders Last 24 Hours: My Active Orders 03/21/17 17:34 Cardiac Monitoring [RC] . DIRECTED Oxygen Therapy, ED [RC] ASDIRECTED Sodium Chloride 0.9% [Saline Flush] 10 ml FLUSH ASDIRECTED PRN Sodium Chloride 0.9% [Saline Flush] 2.5 ml FLUSH ASDIRECTED PRN Saline Lock Insert [OM.PC] Stat 03/21/17 17:35 EKG Documentation Completion [RC] STAT Chest 2V [CR] Stat 03/21/17 17:50 COMPREHENSIVE METABOLIC PN,CMP [CHEM] Stat TROPONIN I [CHEM] Stat - Assessment/Plan Last 24 Hours: My Active Orders 03/21/17 17:34 Cardiac Monitoring [RC] . DIRECTED Oxygen Therapy, ED [RC] ASDIRECTED Sodium Chloride 0.9% [Saline Flush] 10 ml FLUSH ASDIRECTED PRN Sodium Chloride 0.9% [Saline Flush] 2.5 ml FLUSH ASDIRECTED PRN Saline Lock Insert [OM.PC] Stat 03/21/17 17:35 EKG Documentation Completion [RC] STAT Chest 2V [CR] Stat 03/21/17 17:50 COMPREHENSIVE METABOLIC PN,CMP [CHEM] Stat TROPONIN I [CHEM] Stat
[2017-03-21] MEDS ORDERED: Sodium Chloride 0.9% 10 ML Syringe FLUSH PRN (17:34)
[2017-03-21] MEDS ORDERED: Sodium Chloride 0.9% 2.5 ML Syringe FLUSH PRN (17:34)
[2017-03-21 18:31] LABS: CHLORIDE,CL 106 mmol/L (98-110); SODIUM,NA 139 mmol/L (136-146)
[2017-03-21] MEDS ORDERED: Albuterol HFA 18 Gm Inhaler INH PRN (20:55)
[2017-03-21] MEDS ORDERED: traZODone 50 MG Tab PO SCH (21:00)
--- NOTE | 2017-03-21 21:12 | PCM.HP ---
H&P History of Present Illness - History of Present Illness Initial Comments - Free Text/Narative: 71 yo male with pmh of COPD with CAD s/p PCI x7 last year. Patient records his vital signs regularly and today he was noted to have a heart rate of 38 on home blood pressure monitor. He went to the [place] who took an EKG which reported sinus rhythm with heart rate of 65. He was then referred to the ED who then referred to admission due to his shortness of breath as an anginal equivalent. Patient is sating 96% on RA with heart rate of 60 bpm. He reports that he had shortness of breath while walking the dogs today. This is not unusual for him to get short of breath during exercise. He reports his COPD symptoms are stable. He denies any chest pain or fevers. CXR did not show an infiltrates. - Related Data Allergies/Adverse Reactions: Allergies Allergy/AdvReac Type Severity Reaction Status Date / Time levofloxacin [From Levaquin] Allergy Airway Verified 08/25/16 09:41 Tightness Penicillins Allergy Rash Verified 08/25/16 09:41 Home Medications: Home Meds Albuterol [Ventolin HFA] 2 puff INH QID PRN 06/14/13 [History] Aspirin 81 mg PO DAILY 08/12/16 [History] Furosemide 10 mg PO DAILY 08/12/16 [History] Ipratropium [place] 2.5 ml INH Q6HRRT 08/12/16 [History] Metoprolol Tartrate 50 mg PO BIDMEALS 08/12/16 [History] Naproxen [Naprosyn] 500 mg PO Q12HR 08/12/16 [History] Omeprazole 20 mg PO ACBREAKFAST 08/12/16 [History] Rosuvastatin [Crestor] 20 mg PO BEDTIME 08/12/16 [History] Spironolactone [Aldactone] 12.5 mg PO DAILY 08/12/16 [History] traZODone HCl [Trazodone HCl] 50 mg PO BEDTIME 08/12/16 [History] Acetaminophen [Acetaminophen Extra Strength] 1,000 mg PO Q6HR PRN 08/25/16 [ History] Budesonide/Formoterol [Symbicort 160-4.5 MCG] 2 inh IH BID 08/25/16 [History] Gabapentin [Neurontin] 300 mg PO TID 03/21/17 [History] atorvaSTATin Calcium [Atorvastatin Calcium] 80 mg PO BEDTIME 03/21/17 [History] Clopidogrel Bisulfate [Clopidogrel] 75 mg PO DAILY #0 03/22/17 [Rx] Past Medical History HEENT History: Reports: Hard of Hearing Other HEENT History: wears glasses Cardiovascular History: Reports: [place], Stents Other Cardiovascular History: 7 stents, done july 27, 2016 Respiratory History: Reports: COPD, SOB Gastrointestinal History: Reports: GERD Musculoskeletal History: Reports: None Neurological History: Reports: None Psychiatric History: Reports: None Endocrine/Metabolic History: Reports: None Hematologic History: Reports: None Immunologic History: Reports: None Oncologic (Cancer) History: Reports: Colon Dermatologic History: Reports: Other (See Below) Other Dermatologic History: vitalgo - Infectious Disease History Infectious Disease History: Reports: Chicken Pox, Measles, Mumps, Shingles - Past Surgical History Head Surgeries/Procedures: Reports: None HEENT Surgical History: Reports: None Cardiovascular Surgical History: Reports: Coronary Artery Stent Respiratory Surgical History: Reports: None GI Surgical History: Reports: None Musculoskeletal Surgical History: Reports: None Oncologic Surgical History: Reports: Other (See Below) Other Oncologic Surgeries/Procedures: colon resection Dermatological Surgical History: Reports: None Social & Family History - Family History Family Medical History: Noncontributory Oncologic: Reports: Esophageal - Tobacco Use Smoking Status *Q: Former Smoker Years of Tobacco use: 50 Packs/Tins Daily: 1 Used Tobacco, but Quit: Yes Month Tobacco Last Used: 07-21-2016 Second Hand Smoke Exposure: No - Caffeine Use Caffeine Use: Reports: Coffee Other Caffeine Use: 1 cup per day - Alcohol Use Days Per Week of Alcohol Use: 0 - Recreational Drug Use Recreational Drug Use: No H&P Review of Systems - Review of Systems: Review Of Systems: ROS reveals no pertinent complaints other than HPI. Exam - Exam Exam: See Below - Vital Signs Vital Signs: Last Vital Signs Temp 37.1 C 03/21/17 19:45 Pulse 60 03/21/17 19:45 Resp 16 03/21/17 19:45 BP 105/73 03/21/17 19:45 Pulse Ox 95 03/21/17 19:45 Weight: 80.286 kg - Exam General: Alert, Oriented HEENT: Mucosa Moist & [place] Neck: Supple Lungs: Clear to Auscultation, Normal Respiratory Effort Cardiovascular: Regular Rate, Regular Rhythm GI/Abdominal Exam: Soft, Non-Tender Extremities: Non-Tender, No Pedal Edema Skin: Warm, Dry, Intact - Patient Data Result Diagrams: 03/21/17 17:50 03/21/17 17:50 *Q Meaningful Use (ADM) - VTE *Q VTE Criteria *Q: - Stroke *Q Stroke Criteria *Q: - AMI *Q AMI Criteria *Q: Problem List Initiated/Reviewed/Updated: Yes Orders Last 24hrs: Active Orders 24 hr Category Date Time Status RT Aerosol Therapy [RC] ASDIRECTED Care 03/21/17 20:59 Active Albuterol [Ventolin HFA] Med 03/21/17 20:55 Active 0 gm INH QID PRN Albuterol/Ipratropium [DuoNeb 3.0-0.5 MG/3 ML] Med 03/21/17 21:00 Active 3 ml NEB BIDRT Aspirin Med 03/22/17 09:00 Active 81 mg PO DAILY Budesonide/Formoterol Med 03/21/17 21:00 Ordered 2 inh IH BID Clopidogrel [Plavix] Med 03/21/17 21:00 Ordered 75 mg PO BID Furosemide [Lasix] Med 03/22/17 09:00 Ordered 10 mg PO DAILY Metoprolol Tartrate [Lopressor] Med 03/22/17 08:00 Ordered 25 mg PO BIDMEALS Spironolactone [Aldactone] Med 03/22/17 09:00 Ordered 12.5 mg PO DAILY traZODone Med 03/21/17 21:00 Ordered 50 mg PO BEDTIME Medication Orders Albuterol (Ventolin Hfa) 0 gm INH QID PRN PRN Reason: Shortness of Breath Albuterol/Ipratropium (Duoneb 3.0-0.5 Mg/3 Ml) 3 ml NEB BIDRT MICHAEL Aspirin (Aspirin) 81 mg PO DAILY MICHAEL Clopidogrel Bisulfate (Plavix) 75 mg PO BID MICHAEL Furosemide (Lasix) 10 mg PO DAILY MICHAEL Metoprolol Tartrate (Lopressor) 25 mg PO BIDMEALS MICHAEL Non-Formulary Medication (Budesonide/Formoterol) 2 inh IH BID MICHAEL Sodium Chloride (Saline Flush) 10 ml FLUSH ASDIRECTED PRN PRN Reason: Keep Vein Open Sodium Chloride (Saline Flush) 2.5 ml FLUSH ASDIRECTED PRN PRN Reason: Keep Vein Open Spironolactone (Aldactone) 12.5 mg PO DAILY MICHAEL Trazodone HCl (Trazodone) 50 mg PO BEDTIME MICHAEL Assessment/Plan Comment:: 71 yo male admitted due to concerns of bradycardia and shortness of breath. On my interview patient's COPD and CAD symptoms appear to be stable. No reliable evidence of bradycardia. We will monitor overnight.
[2017-03-21] MEDS: Albuterol/Ipratropium 3.0-0.5 MG/3 ML Neb Soln NEB SCH (21:56)
[2017-03-22] MEDS: SYMBICORT IH SCH ×2 (01:42→08:21)
[2017-03-22] MEDS: MDI IH SCH ×2 (01:42→08:21)
[2017-03-22] MEDS: Albuterol/Ipratropium 3.0-0.5 MG/3 ML Neb Soln NEB SCH (07:25)
[2017-03-22] MEDS ORDERED: Albuterol 8 GM Inhaler INH PRN (07:30)
[2017-03-22] MEDS ORDERED: Metoprolol Tartrate 25 MG Tab PO SCH (08:00)
[2017-03-22 08:22] VITALS: BP 116/62
--- NOTE | 2017-03-22 08:58 | CR ---
EXAM DATE: 03/21/17 PATIENT'S AGE: 71 Patient: TRACEE YBARRA Facility: [place], [place] Site . Site : [id number] Study: XRay Chest [id number] 6:21:38 PM Ordering Physician: Doctor Graham Final Report: INDICATION: Shortness of breath, pain TECHNIQUE: Chest 2 views. COMPARISON: 08/25/2016 FINDINGS: Cardiovascular and mediastinum: Heart size and vasculature are normal in caliber and appearance. Mediastinum is within normal limits. Lungs and pleural spaces: Right lower lobe atelectasis. No sign of infiltrate or mass. No sign of pleural effusion. No pneumothorax. Bones and soft tissues: No significant findings. IMPRESSION: No acute pulmonary or cardiac abnormalities. Right lower lobe atelectasis Dictated by Duncan Acuna MD @ 03/21/2017 6:52:39 PM Dictated by: Duncan Acuna MD @ 03/21/2017 18:52:45 (Electronic Signature) Report Signed by Proxy. PATRICIA
[2017-03-22] MEDS ORDERED: Aspirin 81 MG Tab.Chew PO SCH (09:00)
[2017-03-22] MEDS ORDERED: Spironolactone 25 MG Tab PO SCH (09:00)
[2017-03-22] MEDS ORDERED: Furosemide 20 MG Tab PO SCH (09:00)
[2017-03-22] MEDS ORDERED: Clopidogrel 75 MG Tab PO SCH (10:35)
--- NOTE | 2017-03-22 11:13 | PCM.DCSUM1 ---
<Abilio Salazar - Last Filed: 03/22/17 11:08> Discharge Summary - Hospital Course Free Text/Narrative:: admission date: March 21, 2017 Discharge date: March 22, 2017 Admission diagnosis: #1. Bradycardia #2. Shortness of breath #3. History of angina, hypertension Discharge diagnoses: #1. Bradycardia, shortness of breath resolved #2. History of angina, hypertension #3. ACS ruled out Hospital course: This is a 71-year-old male with extensive cardiac history is admitted for observation after noting to have bradycardia while at home with heart rate in the high 30s.. He went to his primary care provider who did an EKG found to him to be normal sinus rhythm and referred him to the emergency department for further workup. Patient also was complaining of shortness of breath on exertion, which was assumed to be angina variant. He was saturating adequately on room air. He was admitted for observation. Patient was placed on telemetry, troponins were trended all of which were negative. He is discharged home and to follow-up with his primary care provider. It does appear to be some discrepancy on his Plavix dosage. The record states that he takes 75 mg by mouth twice a day, but on review of medications with the patient, he takes 75 mg daily. This was adjusted in the record. Patient was advised that her heart rate can possibly drop into the high 30s or 40s. He was advised that as long as he is not symptomatic, such as chest pain, dizziness, lightheadedness, passing out, that he shouldn't have to worry about it. He does have an appointment with cardiology set up in the upcoming months. Primary care and cardiology may want to consider adjustment of metoprolol. Given that he had no symptoms, I left the dosage as is. - Discharge Data Discharge Date: 03/22/17 Discharge Disposition: Home, Self-Care 01 Condition: Fair - Patient Instructions Diet: Heart Healthy Diet Notify Provider of: Fever, Nausea and/or Vomiting Other/Special Instructions: passing out, chest pain - Discharge Plan Home Medications: Home Meds Albuterol [Ventolin HFA] 2 puff INH QID PRN 06/14/13 [History] Aspirin 81 mg PO DAILY 08/12/16 [History] Furosemide 10 mg PO DAILY 08/12/16 [History] Ipratropium Seymour 2.5 ml INH Q6HRRT 08/12/16 [History] Metoprolol Tartrate 50 mg PO BIDMEALS 08/12/16 [History] Naproxen [Naprosyn] 500 mg PO Q12HR 08/12/16 [History] Omeprazole 20 mg PO ACBREAKFAST 08/12/16 [History] Rosuvastatin [Crestor] 20 mg PO BEDTIME 08/12/16 [History] Spironolactone [Aldactone] 12.5 mg PO DAILY 08/12/16 [History] traZODone HCl [Trazodone HCl] 50 mg PO BEDTIME 08/12/16 [History] Acetaminophen [Acetaminophen Extra Strength] 1,000 mg PO Q6HR PRN 08/25/16 [ History] Budesonide/Formoterol [Symbicort 160-4.5 MCG] 2 inh IH BID 08/25/16 [History] Gabapentin [Neurontin] 300 mg PO TID 03/21/17 [History] atorvaSTATin Calcium [Atorvastatin Calcium] 80 mg PO BEDTIME 03/21/17 [History] Clopidogrel Bisulfate [Clopidogrel] 75 mg PO DAILY #0 03/22/17 [Rx] Patient Handouts: Chest Wall Pain, [id number] - Discharge Summary/Plan Comment Discharge Summary/Plan Comment: admission date: March 21, 2017 Discharge date: March 22, 2017 Admission diagnosis: #1. Bradycardia #2. Shortness of breath #3. History of angina, hypertension Discharge diagnoses: #1. Bradycardia, shortness of breath resolved #2. History of angina, hypertension #3. ACS ruled out Hospital course: This is a 71-year-old male with extensive cardiac history is admitted for observation after noting to have bradycardia while at home with heart rate in the high 30s.. He went to his primary care provider who did an EKG found to him to be normal sinus rhythm and referred him to the emergency department for further workup. Patient also was complaining of shortness of breath on exertion, which was assumed to be angina variant. He was saturating adequately on room air. He was admitted for observation. Patient was placed on telemetry, troponins were trended all of which were negative. He is discharged home and to follow-up with his primary care provider. It does appear to be some discrepancy on his Plavix dosage. The record states that he takes 75 mg by mouth twice a day, but on review of medications with the patient, he takes 75 mg daily. This was adjusted in the record. Patient was advised that her heart rate can possibly drop into the high 30s or 40s. He was advised that as long as he is not symptomatic, such as chest pain, dizziness, lightheadedness, passing out, that he shouldn't have to worry about it. He does have an appointment with cardiology set up in the upcoming months. Primary care and cardiology may want to consider adjustment of metoprolol. Given that he had no symptoms, I left the dosage as is. - Patient Data Vitals - Most Recent: Last Vital Signs Temp 36.4 C 03/22/17 08:00 Pulse 62 03/22/17 08:20 Resp 16 03/22/17 08:00 BP 116/62 03/22/17 08:20 Pulse Ox 94 L 03/22/17 08:00 Weight - Most Recent: 80.286 kg I&O - Last 24 hours: Intake & Output 03/21/17 03/22/17 03/22/17 22:59 06:59 14:59 Intake Total 200 479 Output Total 0 1050 Balance 200 -571 Lab Results - Last 24 hrs: Laboratory Results - last 24 hr 03/22/17 03/22/17 Range/Units 00:12 05:42 Troponin I < 0.10 < 0.10 (0.0-0.29) NG/ML Med Orders - Current: Current Medications Discontinued Medications Albuterol (Ventolin Hfa) 0 gm INH QID PRN PRN Reason: Shortness of Breath Albuterol (Ventolin Hfa) 0 gm INH QIDRT PRN PRN Reason: Shortness of Breath Albuterol/Ipratropium (Duoneb 3.0-0.5 Mg/3 Ml) 3 ml NEB BIDRT PENDING SALE TO [facility] Last Admin: 03/22/17 07:25 Dose: Not Given Aspirin (Aspirin) 81 mg PO DAILY PENDING SALE TO [facility] Last Admin: 03/22/17 08:21 Dose: 81 mg Clopidogrel Bisulfate (Plavix) 75 mg PO DAILY PENDING SALE TO [facility] Last Admin: 03/22/17 11:01 Dose: 75 mg Furosemide (Lasix) 10 mg PO DAILY PENDING SALE TO [facility] Last Admin: 03/22/17 08:22 Dose: 10 mg Metoprolol Tartrate (Lopressor) 25 mg PO BIDMEALS PENDING SALE TO [facility] Last Admin: 03/22/17 08:20 Dose: 25 mg Symbicort 160/4.5 (MdiPt Own) 0 inh IH BID PENDING SALE TO [facility] Last Admin: 03/22/17 08:21 Dose: 2 inh Sodium Chloride (Saline Flush) 10 ml FLUSH ASDIRECTED PRN PRN Reason: Keep Vein Open Sodium Chloride (Saline Flush) 2.5 ml FLUSH ASDIRECTED PRN PRN Reason: Keep Vein Open Spironolactone (Aldactone) 12.5 mg PO DAILY PENDING SALE TO [facility] Last Admin: 03/22/17 08:21 Dose: 12.5 mg Trazodone HCl (Trazodone) 50 mg PO BEDTIME PENDING SALE TO [facility] Last Admin: 03/21/17 21:57 Dose: Not Given *Q Meaningful Use (DIS) - VTE *Q VTE Criteria *Q: - Stroke *Q Stroke Criteria *Q: - AMI *Q AMI Criteria *Q: <Eugene Trotter - Last Filed: 03/24/17 11:12> - Patient Data Vitals - Most Recent: Last Vital Signs Temp 36.4 C 03/22/17 08:00 Pulse 62 03/22/17 08:20 Resp 16 03/22/17 08:00 BP 116/62 03/22/17 08:20 Pulse Ox 94 L 03/22/17 08:00 Med Orders - Current: Current Medications Discontinued Medications Albuterol (Ventolin Hfa) 0 gm INH QID PRN PRN Reason: Shortness of Breath Albuterol (Ventolin Hfa) 0 gm INH QIDRT PRN PRN Reason: Shortness of Breath Albuterol/Ipratropium (Duoneb 3.0-0.5 Mg/3 Ml) 3 ml NEB BIDRT PENDING SALE TO [facility] Last Admin: 03/22/17 07:25 Dose: Not Given Aspirin (Aspirin) 81 mg PO DAILY PENDING SALE TO [facility] Last Admin: 03/22/17 08:21 Dose: 81 mg Clopidogrel Bisulfate (Plavix) 75 mg PO DAILY PENDING SALE TO [facility] Last Admin: 03/22/17 11:01 Dose: 75 mg Furosemide (Lasix) 10 mg PO DAILY PENDING SALE TO [facility] Last Admin: 03/22/17 08:22 Dose: 10 mg Metoprolol Tartrate (Lopressor) 25 mg PO BIDMEALS PENDING SALE TO [facility] Last Admin: 03/22/17 08:20 Dose: 25 mg Symbicort 160/4.5 (MdiPt Own) 0 inh IH BID MICHAEL Last Admin: 03/22/17 08:21 Dose: 2 inh Sodium Chloride (Saline Flush) 10 ml FLUSH ASDIRECTED PRN PRN Reason: Keep Vein Open Sodium Chloride (Saline Flush) 2.5 ml FLUSH ASDIRECTED PRN PRN Reason: Keep Vein Open Spironolactone (Aldactone) 12.5 mg PO DAILY PENDING SALE TO [facility] Last Admin: 03/22/17 08:21 Dose: 12.5 mg Trazodone HCl (Trazodone) 50 mg PO BEDTIME PENDING SALE TO [facility] Last Admin: 03/21/17 21:57 Dose: Not Given *Q Meaningful Use (DIS) - VTE *Q VTE Criteria *Q: - Stroke *Q Stroke Criteria *Q: - AMI *Q AMI Criteria *Q: - Free Text/Narrative Note: I have examined the patient. I have discussed findings and treatment plan with resident. I agree with the assessment and plan outlined in the following resident's note.
== END 2017-03-22 11:06 | disposition home or self-care (01) ==
LOC: MW.ED 17:26 → MW.MS 19:19
PROVIDERS: ADMIT Internal Medicine; ATTEND Internal Medicine
DX: R00.1 Bradycardia, unspecified (principal); R06.02 Shortness of breath; I10 Essential (primary) hypertension; J44.9 Chronic obstructive pulmonary disease, unspecified; I25.10 Atherosclerotic heart disease of native coronary artery without angina pectoris; I25.2 Old myocardial infarction; K21.9 Gastro-esophageal reflux disease without esophagitis; Z87.891 Personal history of nicotine dependence; Z79.899 Other long term (current) drug therapy; Z79.82 Long term (current) use of aspirin; Z79.02 Long term (current) use of antithrombotics/antiplatelets; Z95.5 Presence of coronary angioplasty implant and graft; Z88.1 Allergy status to other antibiotic agents; Z88.0 Allergy status to penicillin
CPT/HCPCS: 36415; 71046; 80053; 81001; 84484; 85025; 99285; A9270; G0378; 99284; J7620-GY

== ENCOUNTER 2018-08-13 16:27 | Inpatient (IN) | payer MEDICARE, OTHER ==
--- NOTE | 2018-08-13 16:36 | EDM.PDOC ---
ED HPI GENERAL MEDICAL PROBLEM - General Chief Complaint: Respiratory Problem Stated Complaint: TROUBLE BREATHING Time Seen by Provider: 08/13/18 16:35 Source of Information: Reports: Patient, EMS - History of Present Illness INITIAL COMMENTS - FREE TEXT/NARRATIVE: HISTORY AND PHYSICAL: History of present illness: [Patient presents with shortness breath over the last couple of days was seen in the [place] [facility] today and treated for UTI with Bactrim No fever nausea vomiting chills sweats ] Review of systems: As per history of present illness and below otherwise all systems reviewed and negative. Past medical history: As per history of present illness and as reviewed below otherwise noncontributory. Surgical history: As per history of present illness and as reviewed below otherwise noncontributory. Social history: No reported history of drug or alcohol abuse. Family history: As per history of present illness and as reviewed below otherwise noncontributory. Physical exam: HEENT: Atraumatic, normocephalic, pupils reactive, negative for conjunctival pallor or scleral icterus, mucous membranes moist, throat clear, neck supple, nontender, trachea midline. Lungs: Clear to auscultation, chest nontender. Decreased breath sounds on the right lower air to left Heart: S1S2, regular, negative for clicks, rubs, or JVD. Abdomen: Soft, nondistended, nontender. Negative for masses or hepatosplenomegaly. Negative for costovertebral tenderness. Pelvis: Stable nontender. Genitourinary: Deferred. Rectal: Deferred. Extremities: Atraumatic, negative for cords or calf pain. Neurovascular unremarkable. Neuro: Awake, alert, oriented. Cranial nerves II through XII unremarkable. Cerebellum unremarkable. Motor and sensory unremarkable throughout. Exam nonfocal. Diagnostics: [CBC CMP UA troponin INR Blood cultures 2 EKG Chest 1 view] Therapeutics: [Normal saline 500 mL bolus] Impression: Systemic inflammatory response syndrome [ shortness of breath ] Hypotension History of UTI Chronic history of baseline Definitive disposition and diagnosis as appropriate pending reevaluation and review of above. - Related Data Allergies Allergy/AdvReac Type Severity Reaction Status Date / Time levofloxacin [From Levaquin] Allergy Airway Verified 08/13/18 21:05 Tightness Penicillins Allergy Rash Verified 08/13/18 21:05 propranolol Allergy Airway Verified 08/13/18 21:05 Tightness tetracycline Allergy Rash Verified 08/13/18 21:05 Home Meds: Home Meds Albuterol [Ventolin HFA] 2 puff INH Q6H PRN 06/14/13 [History] Aspirin 81 mg PO DAILY 08/12/16 [History] Furosemide 10 mg PO DAILY 08/12/16 [History] Metoprolol Tartrate 12.5 mg PO BID 08/12/16 [History] Omeprazole 20 mg PO ACBREAKFAST 08/12/16 [History] traZODone HCl [Trazodone HCl] 50 mg PO BEDTIME 08/12/16 [History] Acetaminophen [Acetaminophen Extra Strength] 1,000 mg PO Q6HR PRN 08/25/16 [ History] Budesonide/Formoterol [Symbicort 160-4.5 MCG] 2 inh IH BID 08/25/16 [History] atorvaSTATin Calcium [Atorvastatin Calcium] 40 mg PO BEDTIME 03/21/17 [History] Clopidogrel Bisulfate [Clopidogrel] 75 mg PO DAILY #0 03/22/17 [Rx] Albuterol [Ventolin HFA] 1 - 2 puff INH Q4H PRN 08/13/18 [History] Albuterol/Ipratropium [DuoNeb 3.0-0.5 MG/3 ML] 1 dose INH TID 08/13/18 [History] Fish Oil/Star-3 Fatty Acids [Fish Oil 1,000 MG] 1,000 mg PO DAILY 08/13/18 [ History] Tiotropium [Spiriva HandiHaler] 2 puff INH DAILY 08/13/18 [History] Phenazopyridine HCl [Azo Urinary Pain Relief] 99.5 mg PO TID PRN #30 tablet [Rx] Sulfamethoxazole/Trimethoprim [Bactrim Ds Tablet] 1 each PO BID 7 Days #14 tablet 08/16/18 [Rx] Tamsulosin [Flomax] 0.4 mg PO PCBREAKFAST #30 cap.er 08/16/18 [Rx] Past Medical History HEENT History: Reports: Hard of Hearing Other HEENT History: wears glasses Cardiovascular History: Reports: CT, Stents Other Cardiovascular History: 7 stents, done july 27, 2016 Respiratory History: Reports: COPD, SOB Gastrointestinal History: Reports: GERD Musculoskeletal History: Reports: None Neurological History: Reports: None Psychiatric History: Reports: None Endocrine/Metabolic History: Reports: None Hematologic History: Reports: None Immunologic History: Reports: None Oncologic (Cancer) History: Reports: Colon Dermatologic History: Reports: Other (See Below) Other Dermatologic History: vitalgo - Infectious Disease History Infectious Disease History: Reports: Chicken Pox, Measles, Mumps, Shingles - Past Surgical History Head Surgeries/Procedures: Reports: None HEENT Surgical History: Reports: None Cardiovascular Surgical History: Reports: Coronary Artery Stent Respiratory Surgical History: Reports: None GI Surgical History: Reports: None Musculoskeletal Surgical History: Reports: None Oncologic Surgical History: Reports: Other (See Below) Other Oncologic Surgeries/Procedures: colon resection Dermatological Surgical History: Reports: None Social & Family History - Family History Family Medical History: Noncontributory Oncologic: Reports: Esophageal - Caffeine Use Caffeine Use: Reports: Coffee Other Caffeine Use: 1 cup per day ED ROS GENERAL - Review of Systems Review Of Systems: See Below ED EXAM, GENERAL - Physical Exam Exam: See Below Course - Vital Signs Last Recorded V/S: Last Vital Signs Temp 99.5 F 08/16/18 10:37 Pulse 73 08/16/18 10:37 Resp 16 08/16/18 10:37 BP 127/68 08/16/18 10:37 Pulse Ox 95 08/16/18 11:00 - Orders/Labs/Meds Labs: Laboratory Tests 08/13/18 08/13/18 08/13/18 Range/Units 16:35 16:35 16:35 WBC 20.92 H (4.0-11.0) K/uL RBC 5.03 (4.50-5.90) M/uL Hgb 14.9 (13.0-17.0) g/dL Hct 42.3 (38.0-50.0) % MCV 84.1 (80.0-98.0) fL MCH 29.6 (27.0-32.0) pg MCHC 35.2 (31.0-37.0) g/dL RDW Std Deviation 39.0 (28.0-62.0) fl RDW Coeff of Rebecca 13 (11.0-15.0) % Plt Count 138 L (150-400) K/uL MPV 10.60 (7.40-12.00) fL Neut % (Auto) 87.8 H (48.0-80.0) % Lymph % (Auto) 5.4 L (16.0-40.0) % [place] % (Auto) 6.7 (0.0-15.0) % Eos % (Auto) 0.0 (0.0-7.0) % Baso % (Auto) 0.1 (0.0-1.5) % Neut # (Auto) 18.4 H (1.4-5.7) K/uL Lymph # (Auto) 1.1 (0.6-2.4) K/uL [place] # (Auto) 1.4 H (0.0-0.8) K/uL Eos # (Auto) 0.0 (0.0-0.7) K/uL Baso # (Auto) 0.0 (0.0-0.1) K/uL Add Manual Diff Neutrophils % (Manual) (48.0-80.0) % Band Neutrophils % % Lymphocytes % (Manual) (16.0-40.0) % Monocytes % (Manual) (0.0-15.0) % Nucleated RBC % 0.0 /100WBC Absolute Seg Neuts (1.4-5.7) Band Neutrophils # Lymphocytes # (Manual) (0.6-2.4) Monocytes # (Manual) (0.0-0.8) Nucleated RBCs # 0 K/uL INR 1.13 Lactate (0.20-2.00) mmol/L Sodium 129 L (136-148) mmol/L Potassium 3.9 (3.5-5.1) mmol/L Chloride 95 L (98-107) mmol/L Carbon Dioxide 23.6 (21.0-32.0) mmol/L BUN 18 (7.0-18.0) mg/dL Creatinine 1.3 (0.8-1.3) mg/dL Est Cr Clr Drug Dosing 53.81 mL/min Estimated GFR (MDRD) 54.4 ml/min Glucose 137 H (74-106) mg/dL Hemoglobin A1c (4.5-6.2) % Calcium 8.7 (8.5-10.1) mg/dL Total Bilirubin 3.3 H (0.2-1.0) mg/dL AST 21 (15-37) IU/L ALT 29 (14-63) IU/L Alkaline Phosphatase 74 (46-116) U/L Troponin I < 0.050 (0.000-0.056) ng/mL B-Natriuretic Peptide (<100) PG/ML Total Protein 7.5 (6.4-8.2) g/dL Albumin 3.8 (3.4-5.0) g/dL Globulin 3.7 (2.6-4.0) g/dL Albumin/Globulin Ratio 1.0 (0.9-1.6) Triglycerides (0-200) mg/dL Cholesterol (50-200) mg/dL LDL Cholesterol, Calc (60-180) mg/dL VLDL Cholesterol (5-55) mg/dL HDL Cholesterol (40-60) mg/dL Cholesterol/HDL Ratio (3.3-6.0) Urine Color Urine Appearance Urine pH (5.0-8.0) Ur Specific [place] (1.001-1.035) Urine Protein (NEGATIVE) mg/dL Urine Glucose (UA) (NEGATIVE) mg/dL Urine Ketones (NEGATIVE) mg/dL Urine Occult Blood (NEGATIVE) Urine Nitrite (NEGATIVE) Urine Bilirubin (NEGATIVE) Urine Urobilinogen (<2.0) EU/dL Ur Leukocyte Esterase (NEGATIVE) Urine RBC (0-2/HPF) Urine WBC (0-5/HPF) Ur Epithelial Cells (NONE-FEW) Urine Bacteria (NEGATIVE) 08/13/18 08/13/18 08/13/18 Range/Units 16:35 16:35 17:55 WBC (4.0-11.0) K/uL RBC (4.50-5.90) M/uL Hgb (13.0-17.0) g/dL Hct (38.0-50.0) % MCV (80.0-98.0) fL MCH (27.0-32.0) pg MCHC (31.0-37.0) g/dL RDW Std Deviation (28.0-62.0) fl RDW Coeff of Rebecca (11.0-15.0) % Plt Count (150-400) K/uL MPV (7.40-12.00) fL Neut % (Auto) (48.0-80.0) % Lymph % (Auto) (16.0-40.0) % [place] % (Auto) (0.0-15.0) % Eos % (Auto) (0.0-7.0) % Baso % (Auto) (0.0-1.5) % Neut # (Auto) (1.4-5.7) K/uL Lymph # (Auto) (0.6-2.4) K/uL [place] # (Auto) (0.0-0.8) K/uL Eos # (Auto) (0.0-0.7) K/uL Baso # (Auto) (0.0-0.1) K/uL Add Manual Diff Neutrophils % (Manual) (48.0-80.0) % Band Neutrophils % % Lymphocytes % (Manual) (16.0-40.0) % Monocytes % (Manual) (0.0-15.0) % Nucleated RBC % /100WBC Absolute Seg Neuts (1.4-5.7) Band Neutrophils # Lymphocytes # (Manual) (0.6-2.4) Monocytes # (Manual) (0.0-0.8) Nucleated RBCs # K/uL INR Lactate 1.4 (0.20-2.00) mmol/L Sodium (136-148) mmol/L Potassium (3.5-5.1) mmol/L Chloride (98-107) mmol/L Carbon Dioxide (21.0-32.0) mmol/L BUN (7.0-18.0) mg/dL Creatinine (0.8-1.3) mg/dL Est Cr Clr Drug Dosing mL/min Estimated GFR (MDRD) ml/min Glucose (74-106) mg/dL Hemoglobin A1c (4.5-6.2) % Calcium (8.5-10.1) mg/dL Total Bilirubin (0.2-1.0) mg/dL AST (15-37) IU/L ALT (14-63) IU/L Alkaline Phosphatase (46-116) U/L Troponin I (0.000-0.056) ng/mL B-Natriuretic Peptide 106 H (<100) PG/ML Total Protein (6.4-8.2) g/dL Albumin (3.4-5.0) g/dL Globulin (2.6-4.0) g/dL Albumin/Globulin Ratio (0.9-1.6) Triglycerides (0-200) mg/dL Cholesterol (50-200) mg/dL LDL Cholesterol, Calc (60-180) mg/dL VLDL Cholesterol (5-55) mg/dL HDL Cholesterol (40-60) mg/dL Cholesterol/HDL Ratio (3.3-6.0) Urine Color YELLOW Urine Appearance CLOUDY Urine pH 6.0 (5.0-8.0) Ur Specific [place] 1.020 (1.001-1.035) Urine Protein 100 H (NEGATIVE) mg/dL Urine Glucose (UA) NEGATIVE (NEGATIVE) mg/dL Urine Ketones 40 H (NEGATIVE) mg/dL Urine Occult Blood MODERATE H (NEGATIVE) Urine Nitrite POSITIVE H (NEGATIVE) Urine Bilirubin NEGATIVE (NEGATIVE) Urine Urobilinogen 2.0 H (<2.0) EU/dL Ur Leukocyte Esterase MODERATE H (NEGATIVE) Urine RBC 2-5 (0-2/HPF) Urine WBC 30-40 (0-5/HPF) Ur Epithelial Cells RARE (NONE-FEW) Urine Bacteria 1+ H (NEGATIVE) 08/14/18 08/14/18 08/14/18 Range/Units 04:04 04:04 04:40 WBC 17.12 H (4.0-11.0) K/uL RBC 4.88 (4.50-5.90) M/uL Hgb 14.3 (13.0-17.0) g/dL Hct 41.3 (38.0-50.0) % MCV 84.6 (80.0-98.0) fL MCH 29.3 (27.0-32.0) pg MCHC 34.6 (31.0-37.0) g/dL RDW Std Deviation 39.3 (28.0-62.0) fl RDW Coeff of Rebecca 13 (11.0-15.0) % Plt Count 135 L (150-400) K/uL MPV 10.20 (7.40-12.00) fL Neut % (Auto) 94.3 H (48.0-80.0) % Lymph % (Auto) 4.0 L (16.0-40.0) % [place] % (Auto) 1.6 (0.0-15.0) % Eos % (Auto) 0.0 (0.0-7.0) % Baso % (Auto) 0.1 (0.0-1.5) % Neut # (Auto) 16.2 H (1.4-5.7) K/uL Lymph # (Auto) 0.7 (0.6-2.4) K/uL [place] # (Auto) 0.3 (0.0-0.8) K/uL Eos # (Auto) 0.0 (0.0-0.7) K/uL Baso # (Auto) 0.0 (0.0-0.1) K/uL Add Manual Diff Neutrophils % (Manual) (48.0-80.0) % Band Neutrophils % % Lymphocytes % (Manual) (16.0-40.0) % Monocytes % (Manual) (0.0-15.0) % Nucleated RBC % 0.0 /100WBC Absolute Seg Neuts (1.4-5.7) Band Neutrophils # Lymphocytes # (Manual) (0.6-2.4) Monocytes # (Manual) (0.0-0.8) Nucleated RBCs # 0 K/uL INR Lactate (0.20-2.00) mmol/L Sodium (136-148) mmol/L Potassium (3.5-5.1) mmol/L Chloride (98-107) mmol/L Carbon Dioxide (21.0-32.0) mmol/L BUN (7.0-18.0) mg/dL Creatinine (0.8-1.3) mg/dL Est Cr Clr Drug Dosing mL/min Estimated GFR (MDRD) ml/min Glucose (74-106) mg/dL Hemoglobin A1c 5.3 (4.5-6.2) % Calcium (8.5-10.1) mg/dL Total Bilirubin (0.2-1.0) mg/dL AST (15-37) IU/L ALT (14-63) IU/L Alkaline Phosphatase (46-116) U/L Troponin I (0.000-0.056) ng/mL B-Natriuretic Peptide (<100) PG/ML Total Protein (6.4-8.2) g/dL Albumin (3.4-5.0) g/dL Globulin (2.6-4.0) g/dL Albumin/Globulin Ratio (0.9-1.6) Triglycerides 44 (0-200) mg/dL Cholesterol 107 (50-200) mg/dL LDL Cholesterol, Calc 46 L (60-180) mg/dL VLDL Cholesterol 8 (5-55) mg/dL HDL Cholesterol 52 (40-60) mg/dL Cholesterol/HDL Ratio 2.1 L (3.3-6.0) Urine Color Urine Appearance Urine pH (5.0-8.0) Ur Specific [place] (1.001-1.035) Urine Protein (NEGATIVE) mg/dL Urine Glucose (UA) (NEGATIVE) mg/dL Urine Ketones (NEGATIVE) mg/dL Urine Occult Blood (NEGATIVE) Urine Nitrite (NEGATIVE) Urine Bilirubin (NEGATIVE) Urine Urobilinogen (<2.0) EU/dL Ur Leukocyte Esterase (NEGATIVE) Urine RBC (0-2/HPF) Urine WBC (0-5/HPF) Ur Epithelial Cells (NONE-FEW) Urine Bacteria (NEGATIVE) 08/14/18 08/15/18 08/15/18 Range/Units 04:40 04:55 04:55 WBC 21.74 H (4.0-11.0) K/uL RBC 4.43 L (4.50-5.90) M/uL Hgb 12.9 L (13.0-17.0) g/dL Hct 37.2 L (38.0-50.0) % MCV 84.0 (80.0-98.0) fL MCH 29.1 (27.0-32.0) pg MCHC 34.7 (31.0-37.0) g/dL RDW Std Deviation 39.2 (28.0-62.0) fl RDW Coeff of Rebecca 13 (11.0-15.0) % Plt Count 184 (150-400) K/uL MPV 10.30 (7.40-12.00) fL Neut % (Auto) (48.0-80.0) % Lymph % (Auto) (16.0-40.0) % [place] % (Auto) (0.0-15.0) % Eos % (Auto) (0.0-7.0) % Baso % (Auto) (0.0-1.5) % Neut # (Auto) (1.4-5.7) K/uL Lymph # (Auto) (0.6-2.4) K/uL [place] # (Auto) (0.0-0.8) K/uL Eos # (Auto) (0.0-0.7) K/uL Baso # (Auto) (0.0-0.1) K/uL Add Manual Diff YES Neutrophils % (Manual) 85 H (48.0-80.0) % Band Neutrophils % 1 % Lymphocytes % (Manual) 10 L (16.0-40.0) % Monocytes % (Manual) 4 (0.0-15.0) % Nucleated RBC % 0.0 /100WBC Absolute Seg Neuts 18.5 H (1.4-5.7) Band Neutrophils # 0.2 Lymphocytes # (Manual) 2.2 (0.6-2.4) Monocytes # (Manual) 0.9 H (0.0-0.8) Nucleated RBCs # 0 K/uL INR Lactate (0.20-2.00) mmol/L Sodium 137 138 (136-148) mmol/L Potassium 3.9 3.9 (3.5-5.1) mmol/L Chloride 104 106 (98-107) mmol/L Carbon Dioxide 20.7 L 23.7 (21.0-32.0) mmol/L BUN 19 H 22 H (7.0-18.0) mg/dL Creatinine 1.3 1.1 (0.8-1.3) mg/dL Est Cr Clr Drug Dosing 53.81 63.60 mL/min Estimated GFR (MDRD) 54.4 > 60.0 ml/min Glucose 235 H 134 H (74-106) mg/dL Hemoglobin A1c (4.5-6.2) % Calcium 8.6 8.5 (8.5-10.1) mg/dL Total Bilirubin (0.2-1.0) mg/dL AST (15-37) IU/L ALT (14-63) IU/L Alkaline Phosphatase (46-116) U/L Troponin I (0.000-0.056) ng/mL B-Natriuretic Peptide (<100) PG/ML Total Protein (6.4-8.2) g/dL Albumin (3.4-5.0) g/dL Globulin (2.6-4.0) g/dL Albumin/Globulin Ratio (0.9-1.6) Triglycerides (0-200) mg/dL Cholesterol (50-200) mg/dL LDL Cholesterol, Calc (60-180) mg/dL VLDL Cholesterol (5-55) mg/dL HDL Cholesterol (40-60) mg/dL Cholesterol/HDL Ratio (3.3-6.0) Urine Color Urine Appearance Urine pH (5.0-8.0) Ur Specific [place] (1.001-1.035) Urine Protein (NEGATIVE) mg/dL Urine Glucose (UA) (NEGATIVE) mg/dL Urine Ketones (NEGATIVE) mg/dL Urine Occult Blood (NEGATIVE) Urine Nitrite (NEGATIVE) Urine Bilirubin (NEGATIVE) Urine Urobilinogen (<2.0) EU/dL Ur Leukocyte Esterase (NEGATIVE) Urine RBC (0-2/HPF) Urine WBC (0-5/HPF) Ur Epithelial Cells (NONE-FEW) Urine Bacteria (NEGATIVE) Meds: Medications Discontinued Medications Generic Name Dose Route Start Last Admin Trade Name Freq PRN Reason Stop Dose Admin Acetaminophen 1,000 mg 08/13/18 22:08 Tylenol Extra Strength PO Q6HR PRN Pain Albuterol 0 gm 08/13/18 22:08 Ventolin Hfa INH Q4H PRN Dyspnea Albuterol/Ipratropium 3 ml 08/13/18 16:44 08/13/18 16:54 Duoneb 3.0-0.5 Mg/3 Ml NEB 08/13/18 16:45 3 ml ONETIME ONE Administration Albuterol/Ipratropium 3 ml 08/14/18 06:00 08/16/18 06:11 Duoneb 3.0-0.5 Mg/3 Ml INH 3 ml TIDRT MICHAEL Administration Aspirin 81 mg 08/14/18 09:00 08/16/18 08:24 Aspirin PO 81 mg DAILY MICHAEL Administration Atorvastatin Calcium 40 mg 08/14/18 21:00 08/15/18 20:50 Lipitor PO 40 mg BEDTIME MICHAEL Administration Budesonide/Formoterol Fumarate 0 gm 08/14/18 09:00 08/15/18 09:00 Symbicort 160-4.5 Mcg INH 2 puff BID MICHAEL Administration Budesonide/Formoterol Fumarate 0 gm 08/15/18 18:00 08/16/18 06:12 Symbicort 160-4.5 Mcg INH 2 puff Q12H MICHAEL Administration Clopidogrel Bisulfate 75 mg 08/14/18 09:00 08/16/18 08:24 Plavix PO 75 mg DAILY MICHAEL Administration Fish Oil 1 gm 08/14/18 09:00 08/16/18 08:23 Fish Oil PO 1 gm DAILY MICHAEL Administration Furosemide 20 mg 08/15/18 16:00 08/15/18 16:50 Lasix PO 08/15/18 16:01 20 mg ONETIME ONE Administration Heparin Sodium (Porcine) 5,000 units 08/13/18 22:30 08/15/18 13:33 Heparin Sodium SUBCUT Not Given Q8H MICHAEL Sodium Chloride 1,000 mls @ 125 mls/hr 08/13/18 16:45 08/14/18 03:52 Normal Saline IV 125 mls/hr STAT MICHAEL Administration Vancomycin HCl 1 gm/ Sodium 250 mls @ 166 mls/hr 08/13/18 17:49 08/13/18 19: 08 Chloride IV 08/13/18 19:19 Not Given ONETIME ONE Levofloxacin/Dextrose 750 mg/ 150 mls @ 100 mls/hr 08/13/18 17:50 08/13/18 18 :19 Premix IV 08/13/18 19:19 100 mls/hr ONETIME ONE Administration Trimethoprim/Sulfamethoxazole 520 mls @ 250 mls/hr 08/13/18 18:41 08/13/18 21 :45 20 ml/ Dextrose/Water IV 08/13/18 20:45 Not Given NOW STA Vancomycin HCl 1 gm/ Sodium 250 mls @ 166 mls/hr 08/13/18 18:45 08/13/18 20: 00 Chloride IV 08/13/18 20:15 Not Given ONETIME ONE Vancomycin HCl 1 gm/ Sodium 250 mls @ 250 mls/hr 08/13/18 19:08 08/13/18 19: 59 Chloride IV 08/13/18 20:07 250 mls/hr ONETIME ONE Administration Ceftriaxone Sodium 1 gm/ 50 mls @ 100 mls/hr 08/13/18 22:30 08/13/18 22:51 Sodium Chloride IV 100 mls/hr Q24H MICHAEL Administration Ceftriaxone Sodium/Dextrose 1 50 mls @ 100 mls/hr 08/14/18 22:30 08/15/18 22: 24 gm/ Premix IV 100 mls/hr Q24H MICHAEL Administration Methylprednisolone Sodium Succinate 125 mg 08/13/18 17:46 08/13/18 18:19 Solu-Medrol IVPUSH 08/13/18 17:47 125 mg ONETIME ONE Administration Metoprolol Tartrate 12.5 mg 08/14/18 09:00 08/16/18 08:26 Lopressor PO 12.5 mg BID MICHAEL Administration Pantoprazole Sodium 40 mg 08/13/18 22:30 08/16/18 06:39 Protonix PO 40 mg ACBREAKFAST MICHAEL Administration Paroxetine HCl 20 mg 08/14/18 09:00 08/14/18 09:04 Paxil PO Not Given DAILY MICHAEL Phenazopyridine HCl 200 mg 08/16/18 14:00 Pyridium PO TID MICHAEL Phenazopyridine HCl 200 mg 08/16/18 09:16 08/16/18 09:49 Pyridium PO 200 mg TID MICHAEL Administration Tamsulosin HCl 0.4 mg 08/15/18 10:17 08/16/18 08:25 Flomax PO 0.4 mg PCBREAKFAST MICHAEL Administration Tiotropium [place] 18 mcg 08/14/18 09:00 08/15/18 09:00 Spiriva Handihaler INH 18 mcg DAILY MICHAEL Administration Tiotropium [place] 18 mcg 08/15/18 12:00 08/16/18 11:11 Spiriva Handihaler INH Not Given DAILY@1200 [facility] Trazodone HCl 50 mg 08/14/18 21:00 08/15/18 20:52 Trazodone PO 50 mg BEDTIME MICHAEL Administration Departure - Departure Time of Disposition: 06:56 Disposition: Refer to Observation Condition: Poor Clinical Impression: Systemic inflammatory response syndrome - Discharge Information
[2018-08-13] MEDS ORDERED: Albuterol/Ipratropium 3.0-0.5 MG/3 ML Neb Soln NEB ONE (16:44)
[2018-08-13] MEDS: Sodium Chloride 0.9% 1,000 ML IV SCH (16:53)
[2018-08-13 17:34] LABS: CHLORIDE,CL 95 mmol/L (98-107); SODIUM,NA 129 mmol/L (136-148)
[2018-08-13] MEDS ORDERED: methylPREDNISolone Sodium Succinate 125 MG/2 ML SDV IVPUSH ONE (17:46)
[2018-08-13] MEDS ORDERED: Levofloxacin/Dextrose 5%-Water 750 MG in Premix Bag 1 BAG IV ONE (17:50)
--- NOTE | 2018-08-13 18:19 | CR ---
HISTORY: Shortness of breath. COMPARISON: 03/21/2017 FINDINGS: A portable erect AP view of the chest was obtained at 1742 hours. There is no change in linear density in the right lung base consistent with scarring from previous inflammatory disease. The rest of the chest remains clear, with no sign of congestive failure or other infiltrate. There is no sign of a pleural effusion. The heart remains normal in size. The mediastinum is normal in appearance. The osseous structures are normal in appearance for the patient`s age. IMPRESSION: Stable mild linear density in the right lung base, consistent with scarring. Otherwise no active disease seen in the chest. Dictated by Amos Hodges MD @ Aug 13 2018 6:14PM Signed by Dr. Amos Hodges @ Aug 13 2018 6:16PM
[2018-08-13] MEDS ORDERED: Sulfamethoxazole/Trimethoprim 20 ML in Dextrose 5% in Water 500 ML IV STA ×2 (18:41)
[2018-08-13] MEDS ORDERED: Albuterol 8 GM Inhaler INH PRN (22:08)
[2018-08-13] MEDS ORDERED: Acetaminophen 500 MG Tab PO PRN (22:08)
[2018-08-13] MEDS ORDERED: cefTRIAXone 1 GM in Sodium Chloride 0.9% 50 ML IV SCH (22:30)
--- NOTE | 2018-08-13 22:33 | PCM.HP ---
H&P History of Present Illness - General Date of Service: 08/13/18 Admit Problem/Dx: Admission Diagnosis/Problem Admission Diagnosis/Problem Systemic inflammatory response syndrome (SIRS) - History of Present Illness Initial Comments - Free Text/Narative: 72 yo male with pmh of COPD and CAD who presents with three day history of dysuria, increased urinary frequency, and urgency. He also reported fevers. He was seen in the MI clinic today and prescribed bactrim for UTI. He started to become short of breath and presented to the ED. In the ED he was noted to have a leukocytosis and pyuria. He was given solumedrol, IV fluids, vancomycin and levaquin. He reports shortness of breath has resolved and he is feeling much better. - Related Data Allergies/Adverse Reactions: Allergies Allergy/AdvReac Type Severity Reaction Status Date / Time levofloxacin [From Levaquin] Allergy Airway Verified 08/13/18 21:05 Tightness Penicillins Allergy Rash Verified 08/13/18 21:05 propranolol Allergy Airway Verified 08/13/18 21:05 Tightness tetracycline Allergy Rash Verified 08/13/18 21:05 Home Medications: Home Meds Albuterol [Ventolin HFA] 2 puff INH Q6H PRN 06/14/13 [History] Aspirin 81 mg PO DAILY 08/12/16 [History] Furosemide 10 mg PO DAILY 08/12/16 [History] Metoprolol Tartrate 12.5 mg PO BID 08/12/16 [History] Omeprazole 20 mg PO ACBREAKFAST 08/12/16 [History] traZODone HCl [Trazodone HCl] 50 mg PO BEDTIME 08/12/16 [History] Acetaminophen [Acetaminophen Extra Strength] 1,000 mg PO Q6HR PRN 08/25/16 [ History] Budesonide/Formoterol [Symbicort 160-4.5 MCG] 2 inh IH BID 08/25/16 [History] atorvaSTATin Calcium [Atorvastatin Calcium] 40 mg PO BEDTIME 03/21/17 [History] Clopidogrel Bisulfate [Clopidogrel] 75 mg PO DAILY #0 03/22/17 [Rx] Albuterol [Ventolin HFA] 1 - 2 puff INH Q4H PRN 08/13/18 [History] Albuterol/Ipratropium [DuoNeb 3.0-0.5 MG/3 ML] 1 dose INH TID 08/13/18 [History] Fish Oil/Meacham-3 Fatty Acids [Fish Oil 1,000 MG] 1,000 mg PO DAILY 08/13/18 [ History] Sulfamethoxazole/Trimethoprim [Bactrim Ds Tablet] 1 tab PO BID 08/13/18 [History ] Tiotropium [Spiriva HandiHaler] 2 puff INH DAILY 08/13/18 [History] Past Medical History HEENT History: Reports: Hard of Hearing Other HEENT History: wears glasses Cardiovascular History: Reports: [place], Stents Other Cardiovascular History: 7 stents, done july 27, 2016 Respiratory History: Reports: COPD, SOB Other Respiratory History: 02 dependent Gastrointestinal History: Reports: GERD Musculoskeletal History: Reports: None Neurological History: Reports: None Psychiatric History: Reports: None Endocrine/Metabolic History: Reports: None Hematologic History: Reports: None Immunologic History: Reports: None Oncologic (Cancer) History: Reports: Colon Dermatologic History: Reports: Other (See Below) Other Dermatologic History: vitalgo - Infectious Disease History Infectious Disease History: Reports: Chicken Pox, Measles, Mumps, Shingles - Past Surgical History Head Surgeries/Procedures: Reports: None HEENT Surgical History: Reports: None Cardiovascular Surgical History: Reports: Coronary Artery Stent Respiratory Surgical History: Reports: None GI Surgical History: Reports: None Musculoskeletal Surgical History: Reports: None Oncologic Surgical History: Reports: Other (See Below) Other Oncologic Surgeries/Procedures: colon resection Dermatological Surgical History: Reports: None Social & Family History - Family History Family Medical History: Noncontributory Oncologic: Reports: Esophageal - Tobacco Use Smoking Status *Q: Former Smoker Years of Tobacco use: 50 Packs/Tins Daily: 2 Used Tobacco, but Quit: Yes Month/Year Tobacco Last Used: July 2016 - Caffeine Use Caffeine Use: Reports: Coffee Other Caffeine Use: 1 cup per day - Recreational Drug Use Recreational Drug Use: No H&P Review of Systems - Review of Systems: Review Of Systems: ROS reveals no pertinent complaints other than HPI. Exam - Exam Exam: See Below - Vital Signs Vital Signs: Last Vital Signs Temp 36.8 C 08/13/18 20:10 Pulse 86 08/13/18 20:10 Resp 20 08/13/18 20:10 BP 92/73 08/13/18 20:10 Pulse Ox 93 L 08/13/18 20:10 Weight: 77.156 kg - Exam General: Alert, Oriented HEENT: Mucosa Moist & [place] Neck: Supple Lungs: Clear to Auscultation, Normal Respiratory Effort GI/Abdominal Exam: Soft, Non-Tender Extremities: Non-Tender, No Pedal Edema - Patient Data Lab Results Last 24 hrs: Laboratory Results - last 24 hr 08/13/18 08/13/18 08/13/18 Range/Units 16:35 16:35 16:35 WBC 20.92 H (4.0-11.0) K/uL RBC 5.03 (4.50-5.90) M/uL Hgb 14.9 (13.0-17.0) g/dL Hct 42.3 (38.0-50.0) % MCV 84.1 (80.0-98.0) fL MCH 29.6 (27.0-32.0) pg MCHC 35.2 (31.0-37.0) g/dL RDW Std Deviation 39.0 (28.0-62.0) fl RDW Coeff of Rebecca 13 (11.0-15.0) % Plt Count 138 L (150-400) K/uL MPV 10.60 (7.40-12.00) fL Neut % (Auto) 87.8 H (48.0-80.0) % Lymph % (Auto) 5.4 L (16.0-40.0) % [place] % (Auto) 6.7 (0.0-15.0) % Eos % (Auto) 0.0 (0.0-7.0) % Baso % (Auto) 0.1 (0.0-1.5) % Neut # (Auto) 18.4 H (1.4-5.7) K/uL Lymph # (Auto) 1.1 (0.6-2.4) K/uL [place] # (Auto) 1.4 H (0.0-0.8) K/uL Eos # (Auto) 0.0 (0.0-0.7) K/uL Baso # (Auto) 0.0 (0.0-0.1) K/uL Nucleated RBC % 0.0 /100WBC Nucleated RBCs # 0 K/uL INR 1.13 Lactate (0.20-2.00) mmol/L Sodium 129 L (136-148) mmol/L Potassium 3.9 (3.5-5.1) mmol/L Chloride 95 L (98-107) mmol/L Carbon Dioxide 23.6 (21.0-32.0) mmol/L BUN 18 (7.0-18.0) mg/dL Creatinine 1.3 (0.8-1.3) mg/dL Est Cr Clr Drug Dosing 53.81 mL/min Estimated GFR (MDRD) 54.4 ml/min Glucose 137 H (74-106) mg/dL Calcium 8.7 (8.5-10.1) mg/dL Total Bilirubin 3.3 H (0.2-1.0) mg/dL AST 21 (15-37) IU/L ALT 29 (14-63) IU/L Alkaline Phosphatase 74 (46-116) U/L Troponin I < 0.050 (0.000-0.056) ng/mL B-Natriuretic Peptide (<100) PG/ML Total Protein 7.5 (6.4-8.2) g/dL Albumin 3.8 (3.4-5.0) g/dL Globulin 3.7 (2.6-4.0) g/dL Albumin/Globulin Ratio 1.0 (0.9-1.6) Urine Color Urine Appearance Urine pH (5.0-8.0) Ur Specific [place] (1.001-1.035) Urine Protein (NEGATIVE) mg/dL Urine Glucose (UA) (NEGATIVE) mg/dL Urine Ketones (NEGATIVE) mg/dL Urine Occult Blood (NEGATIVE) Urine Nitrite (NEGATIVE) Urine Bilirubin (NEGATIVE) Urine Urobilinogen (<2.0) EU/dL Ur Leukocyte Esterase (NEGATIVE) Urine RBC (0-2/HPF) Urine WBC (0-5/HPF) Ur Epithelial Cells (NONE-FEW) Urine Bacteria (NEGATIVE) 08/13/18 08/13/18 08/13/18 Range/Units 16:35 16:35 17:55 WBC (4.0-11.0) K/uL RBC (4.50-5.90) M/uL Hgb (13.0-17.0) g/dL Hct (38.0-50.0) % MCV (80.0-98.0) fL MCH (27.0-32.0) pg MCHC (31.0-37.0) g/dL RDW Std Deviation (28.0-62.0) fl RDW Coeff of Rebecca (11.0-15.0) % Plt Count (150-400) K/uL MPV (7.40-12.00) fL Neut % (Auto) (48.0-80.0) % Lymph % (Auto) (16.0-40.0) % [place] % (Auto) (0.0-15.0) % Eos % (Auto) (0.0-7.0) % Baso % (Auto) (0.0-1.5) % Neut # (Auto) (1.4-5.7) K/uL Lymph # (Auto) (0.6-2.4) K/uL [place] # (Auto) (0.0-0.8) K/uL Eos # (Auto) (0.0-0.7) K/uL Baso # (Auto) (0.0-0.1) K/uL Nucleated RBC % /100WBC Nucleated RBCs # K/uL INR Lactate 1.4 (0.20-2.00) mmol/L Sodium (136-148) mmol/L Potassium (3.5-5.1) mmol/L Chloride (98-107) mmol/L Carbon Dioxide (21.0-32.0) mmol/L BUN (7.0-18.0) mg/dL Creatinine (0.8-1.3) mg/dL Est Cr Clr Drug Dosing mL/min Estimated GFR (MDRD) ml/min Glucose (74-106) mg/dL Calcium (8.5-10.1) mg/dL Total Bilirubin (0.2-1.0) mg/dL AST (15-37) IU/L ALT (14-63) IU/L Alkaline Phosphatase (46-116) U/L Troponin I (0.000-0.056) ng/mL B-Natriuretic Peptide 106 H (<100) PG/ML Total Protein (6.4-8.2) g/dL Albumin (3.4-5.0) g/dL Globulin (2.6-4.0) g/dL Albumin/Globulin Ratio (0.9-1.6) Urine Color YELLOW Urine Appearance CLOUDY Urine pH 6.0 (5.0-8.0) Ur Specific [place] 1.020 (1.001-1.035) Urine Protein 100 H (NEGATIVE) mg/dL Urine Glucose (UA) NEGATIVE (NEGATIVE) mg/dL Urine Ketones 40 H (NEGATIVE) mg/dL Urine Occult Blood MODERATE H (NEGATIVE) Urine Nitrite POSITIVE H (NEGATIVE) Urine Bilirubin NEGATIVE (NEGATIVE) Urine Urobilinogen 2.0 H (<2.0) EU/dL Ur Leukocyte Esterase MODERATE H (NEGATIVE) Urine RBC 2-5 (0-2/HPF) Urine WBC 30-40 (0-5/HPF) Ur Epithelial Cells RARE (NONE-FEW) Urine Bacteria 1+ H (NEGATIVE) Result Diagrams: 08/14/18 04:40 08/14/18 04:40 Problem List Initiated/Reviewed/Updated: Yes Orders Last 24hrs: Active Orders 24 hr Category Date Time Status Admission Status [Patient Status] [ADT] Stat ADT 08/13/18 18:46 Active Antiembolic Devices [RC] PER UNIT ROUTINE Care 08/13/18 22:26 Ordered Cardiac Monitoring [RC] CONTINUOUS Care 08/13/18 22:25 Ordered EKG Documentation Completion [RC] STAT Care 08/13/18 16:35 Active Oxygen Therapy [RC] PRN Care 08/13/18 22:23 Ordered RT Aerosol Therapy [RC] ASDIRECTED Care 08/13/18 16:44 Active Up ad Fina [RC] ASDIRECTED Care 08/13/18 22:23 Ordered VTE/DVT Education [RC] PER UNIT ROUTINE Care 08/13/18 22:23 Ordered Vital Signs [RC] Q4H Care 08/13/18 22:23 Ordered Regular Diet [DIET] Diet 08/13/18 Breakfast Ordered CULTURE BLOOD [BC] Stat Lab 08/13/18 16:35 Received CULTURE BLOOD [BC] Stat Lab 08/13/18 16:53 Received CULTURE URINE [RM] Stat Lab 08/13/18 17:55 Received Acetaminophen [Tylenol Extra Strength] Med 08/13/18 22:08 Ordered 1,000 mg PO Q6HR PRN Albuterol [Ventolin HFA] Med 08/13/18 22:08 Ordered 1 - 2 puff INH Q4H PRN Albuterol/Ipratropium [DuoNeb 3.0-0.5 MG/3 ML] Med 08/14/18 06:00 Ordered 1 dose INH TID Aspirin Med 08/14/18 09:00 Ordered 81 mg PO DAILY Budesonide/Formoterol [Symbicort 160-4.5 MCG] Med 08/14/18 09:00 Ordered 2 inh INH BID Clopidogrel [Plavix] Med 08/14/18 09:00 Ordered 75 mg PO DAILY Fish Oil/Meacham-3 Fatty Acids [Fish Oil] Med 08/14/18 09:00 Ordered 1 gm PO DAILY Heparin Sodium Med 08/13/18 22:30 Ordered 5,000 units SUBCUT Q8H Metoprolol Tartrate [Lopressor] Med 08/14/18 09:00 Ordered 12.5 mg PO BID Omeprazole [Omeprazole] Med 08/14/18 07:30 Ordered 20 mg PO ACBREAKFAST PARoxetine [Paxil] Med 08/14/18 09:00 Ordered 20 mg PO DAILY Sodium Chloride 0.9% [Normal Saline] 1,000 ml Med 08/13/18 16:45 Active IV STAT Tiotropium [Spiriva HandiHaler] Med 08/14/18 09:00 Ordered 2 puff INH DAILY atorvaSTATin Calcium [Atorvastatin Calcium] Med 08/14/18 21:00 Ordered 40 mg PO BEDTIME cefTRIAXone [Rocephin] 1 gm Med 08/13/18 22:15 Ordered Sodium Chloride 0.9% [Normal Saline] 50 ml IV Q24H traZODone Med 08/14/18 21:00 Ordered 50 mg PO BEDTIME Blood Culture x2 Reflex Set [OM.PC] Stat Oth 08/13/18 16:35 Ordered Sequential Compression Device [OM.PC] Per Unit Routine Oth 08/13/18 22:25 Ordered Resuscitation Status Routine Resus Stat 08/13/18 22:23 Ordered Medication Orders Acetaminophen (Tylenol Extra Strength) 1,000 mg PO Q6HR PRN PRN Reason: Pain Albuterol (Ventolin Hfa) 0 gm INH Q4H PRN PRN Reason: Dyspnea Albuterol/Ipratropium (Duoneb 3.0-0.5 Mg/3 Ml) 3 ml INH TIDRT MICHAEL Aspirin (Aspirin) 81 mg PO DAILY MICHAEL Budesonide/Formoterol Fumarate (Symbicort 160-4.5 Mcg) 0 gm INH BID MICHAEL Clopidogrel Bisulfate (Plavix) 75 mg PO DAILY MICHAEL Fish Oil (Fish Oil) 1 gm PO DAILY [facility] Sodium Chloride (Normal Saline) 1,000 mls @ 125 mls/hr IV STAT MICHAEL Last Admin: 08/13/18 16:53 Dose: 125 mls/hr Ceftriaxone Sodium 1 gm/ (Sodium Chloride) 50 mls @ 100 mls/hr IV Q24H MICHAEL Metoprolol Tartrate (Lopressor) 12.5 mg PO BID MICHAEL Non-Formulary Medication (Atorvastatin Calcium [Atorvastatin Calcium]) 40 mg PO BEDTIME MICHAEL Non-Formulary Medication (Omeprazole [Omeprazole]) 20 mg PO ACBREAKFAST [facility] Paroxetine HCl (Paxil) 20 mg PO DAILY [facility] Tiotropium [place] (Spiriva Handihaler) mcg INH DAILY [facility] Trazodone HCl (Trazodone) 50 mg PO BEDTIME [facility] Assessment/Plan Comment:: 72 yo male with UTI and sepsis. We will treat with Rocephin and follow cultures.
[2018-08-13] MEDS: Heparin Sodium 5,000 Units/ML Vial SUBCUT SCH (22:39)
[2018-08-13] MEDS: Pantoprazole 40 MG Tab.CR PO SCH (22:40)
[2018-08-14] MEDS: Sodium Chloride 0.9% 1,000 ML IV SCH (03:52)
[2018-08-14] MEDS: Heparin Sodium 5,000 Units/ML Vial SUBCUT SCH ×3 (06:25→21:46)
[2018-08-14] MEDS: Pantoprazole 40 MG Tab.CR PO SCH (06:29)
[2018-08-14] MEDS: Albuterol/Ipratropium 3.0-0.5 MG/3 ML Neb Soln INH SCH ×3 (06:41→21:11)
[2018-08-14 08:21] LABS: HEMOGLOBIN A1C 5.3 % (4.5-6.2)
[2018-08-14] MEDS ORDERED: PARoxetine 20 MG Tab PO SCH (09:00)
[2018-08-14] MEDS: Aspirin 81 MG Tab.Chew PO SCH (09:04)
[2018-08-14] MEDS: Metoprolol Tartrate 25 MG Tab PO SCH ×2 (09:04→21:37)
[2018-08-14] MEDS: Clopidogrel 75 MG Tab PO SCH (09:04)
[2018-08-14] MEDS: Fish Oil/Omega-3 Fatty Acids 1 Gm Cap PO SCH (09:04)
[2018-08-14] MEDS: Tiotropium Inhaler 18 MCG Inhalation Powder Cap Kit of 5 INH SCH (09:45)
[2018-08-14] MEDS: Budesonide/Formoterol 160-4.5 MCG/Puff 6 GM Inhaler INH SCH ×2 (09:46→21:14)
--- NOTE | 2018-08-14 09:51 | PCM.PN ---
- General Info Date of Service: 08/14/18 Subjective Update: 72 y/o male admitted for sepsis 2/2 UTI. Now, improving on ceftriaxone. Denies any chest pain, dyspnea, abdominal pain, dysuria. - Patient Data Vitals - Most Recent: Last Vital Signs Temp 36.9 C 08/14/18 07:00 Pulse 91 08/14/18 09:04 Resp 16 08/14/18 07:00 BP 120/81 08/14/18 09:04 Pulse Ox 92 L 08/14/18 07:00 Weight - Most Recent: 77.156 kg I&O - Last 24 Hours: Intake & Output 08/13/18 08/14/18 08/14/18 22:59 06:59 14:59 Intake Total 250 1590 Output Total 1350 Balance 250 240 Lab Results Last 24 Hours: Laboratory Results - last 24 hr 08/13/18 08/13/18 08/13/18 Range/Units 16:35 16:35 16:35 WBC 20.92 H (4.0-11.0) K/uL RBC 5.03 (4.50-5.90) M/uL Hgb 14.9 (13.0-17.0) g/dL Hct 42.3 (38.0-50.0) % MCV 84.1 (80.0-98.0) fL MCH 29.6 (27.0-32.0) pg MCHC 35.2 (31.0-37.0) g/dL RDW Std Deviation 39.0 (28.0-62.0) fl RDW Coeff of Rebecca 13 (11.0-15.0) % Plt Count 138 L (150-400) K/uL MPV 10.60 (7.40-12.00) fL Neut % (Auto) 87.8 H (48.0-80.0) % Lymph % (Auto) 5.4 L (16.0-40.0) % [place] % (Auto) 6.7 (0.0-15.0) % Eos % (Auto) 0.0 (0.0-7.0) % Baso % (Auto) 0.1 (0.0-1.5) % Neut # (Auto) 18.4 H (1.4-5.7) K/uL Lymph # (Auto) 1.1 (0.6-2.4) K/uL [place] # (Auto) 1.4 H (0.0-0.8) K/uL Eos # (Auto) 0.0 (0.0-0.7) K/uL Baso # (Auto) 0.0 (0.0-0.1) K/uL Nucleated RBC % 0.0 /100WBC Nucleated RBCs # 0 K/uL INR 1.13 Lactate (0.20-2.00) mmol/L Sodium 129 L (136-148) mmol/L Potassium 3.9 (3.5-5.1) mmol/L Chloride 95 L (98-107) mmol/L Carbon Dioxide 23.6 (21.0-32.0) mmol/L BUN 18 (7.0-18.0) mg/dL Creatinine 1.3 (0.8-1.3) mg/dL Est Cr Clr Drug Dosing 53.81 mL/min Estimated GFR (MDRD) 54.4 ml/min Glucose 137 H (74-106) mg/dL Hemoglobin A1c (4.5-6.2) % Calcium 8.7 (8.5-10.1) mg/dL Total Bilirubin 3.3 H (0.2-1.0) mg/dL AST 21 (15-37) IU/L ALT 29 (14-63) IU/L Alkaline Phosphatase 74 (46-116) U/L Troponin I < 0.050 (0.000-0.056) ng/mL B-Natriuretic Peptide (<100) PG/ML Total Protein 7.5 (6.4-8.2) g/dL Albumin 3.8 (3.4-5.0) g/dL Globulin 3.7 (2.6-4.0) g/dL Albumin/Globulin Ratio 1.0 (0.9-1.6) Triglycerides (0-200) mg/dL Cholesterol (50-200) mg/dL LDL Cholesterol, Calc (60-180) mg/dL VLDL Cholesterol (5-55) mg/dL HDL Cholesterol (40-60) mg/dL Cholesterol/HDL Ratio (3.3-6.0) Urine Color Urine Appearance Urine pH (5.0-8.0) Ur Specific [place] (1.001-1.035) Urine Protein (NEGATIVE) mg/dL Urine Glucose (UA) (NEGATIVE) mg/dL Urine Ketones (NEGATIVE) mg/dL Urine Occult Blood (NEGATIVE) Urine Nitrite (NEGATIVE) Urine Bilirubin (NEGATIVE) Urine Urobilinogen (<2.0) EU/dL Ur Leukocyte Esterase (NEGATIVE) Urine RBC (0-2/HPF) Urine WBC (0-5/HPF) Ur Epithelial Cells (NONE-FEW) Urine Bacteria (NEGATIVE) 08/13/18 08/13/18 08/13/18 Range/Units 16:35 16:35 17:55 WBC (4.0-11.0) K/uL RBC (4.50-5.90) M/uL Hgb (13.0-17.0) g/dL Hct (38.0-50.0) % MCV (80.0-98.0) fL MCH (27.0-32.0) pg MCHC (31.0-37.0) g/dL RDW Std Deviation (28.0-62.0) fl RDW Coeff of [place] (11.0-15.0) % Plt Count (150-400) K/uL MPV (7.40-12.00) fL Neut % (Auto) (48.0-80.0) % Lymph % (Auto) (16.0-40.0) % [place] % (Auto) (0.0-15.0) % Eos % (Auto) (0.0-7.0) % Baso % (Auto) (0.0-1.5) % Neut # (Auto) (1.4-5.7) K/uL Lymph # (Auto) (0.6-2.4) K/uL [place] # (Auto) (0.0-0.8) K/uL Eos # (Auto) (0.0-0.7) K/uL Baso # (Auto) (0.0-0.1) K/uL Nucleated RBC % /100WBC Nucleated RBCs # K/uL INR Lactate 1.4 (0.20-2.00) mmol/L Sodium (136-148) mmol/L Potassium (3.5-5.1) mmol/L Chloride (98-107) mmol/L Carbon Dioxide (21.0-32.0) mmol/L BUN (7.0-18.0) mg/dL Creatinine (0.8-1.3) mg/dL Est Cr Clr Drug Dosing mL/min Estimated GFR (MDRD) ml/min Glucose (74-106) mg/dL Hemoglobin A1c (4.5-6.2) % Calcium (8.5-10.1) mg/dL Total Bilirubin (0.2-1.0) mg/dL AST (15-37) IU/L ALT (14-63) IU/L Alkaline Phosphatase (46-116) U/L Troponin I (0.000-0.056) ng/mL B-Natriuretic Peptide 106 H (<100) PG/ML Total Protein (6.4-8.2) g/dL Albumin (3.4-5.0) g/dL Globulin (2.6-4.0) g/dL Albumin/Globulin Ratio (0.9-1.6) Triglycerides (0-200) mg/dL Cholesterol (50-200) mg/dL LDL Cholesterol, Calc (60-180) mg/dL VLDL Cholesterol (5-55) mg/dL HDL Cholesterol (40-60) mg/dL Cholesterol/HDL Ratio (3.3-6.0) Urine Color YELLOW Urine Appearance CLOUDY Urine pH 6.0 (5.0-8.0) Ur Specific [place] 1.020 (1.001-1.035) Urine Protein 100 H (NEGATIVE) mg/dL Urine Glucose (UA) NEGATIVE (NEGATIVE) mg/dL Urine Ketones 40 H (NEGATIVE) mg/dL Urine Occult Blood MODERATE H (NEGATIVE) Urine Nitrite POSITIVE H (NEGATIVE) Urine Bilirubin NEGATIVE (NEGATIVE) Urine Urobilinogen 2.0 H (<2.0) EU/dL Ur Leukocyte Esterase MODERATE H (NEGATIVE) Urine RBC 2-5 (0-2/HPF) Urine WBC 30-40 (0-5/HPF) Ur Epithelial Cells RARE (NONE-FEW) Urine Bacteria 1+ H (NEGATIVE) 08/14/18 08/14/18 08/14/18 Range/Units 04:04 04:04 04:40 WBC 17.12 H (4.0-11.0) K/uL RBC 4.88 (4.50-5.90) M/uL Hgb 14.3 (13.0-17.0) g/dL Hct 41.3 (38.0-50.0) % MCV 84.6 (80.0-98.0) fL MCH 29.3 (27.0-32.0) pg MCHC 34.6 (31.0-37.0) g/dL RDW Std Deviation 39.3 (28.0-62.0) fl RDW Coeff of [place] 13 (11.0-15.0) % Plt Count 135 L (150-400) K/uL MPV 10.20 (7.40-12.00) fL Neut % (Auto) 94.3 H (48.0-80.0) % Lymph % (Auto) 4.0 L (16.0-40.0) % [place] % (Auto) 1.6 (0.0-15.0) % Eos % (Auto) 0.0 (0.0-7.0) % Baso % (Auto) 0.1 (0.0-1.5) % Neut # (Auto) 16.2 H (1.4-5.7) K/uL Lymph # (Auto) 0.7 (0.6-2.4) K/uL [place] # (Auto) 0.3 (0.0-0.8) K/uL Eos # (Auto) 0.0 (0.0-0.7) K/uL Baso # (Auto) 0.0 (0.0-0.1) K/uL Nucleated RBC % 0.0 /100WBC Nucleated RBCs # 0 K/uL INR Lactate (0.20-2.00) mmol/L Sodium (136-148) mmol/L Potassium (3.5-5.1) mmol/L Chloride (98-107) mmol/L Carbon Dioxide (21.0-32.0) mmol/L BUN (7.0-18.0) mg/dL Creatinine (0.8-1.3) mg/dL Est Cr Clr Drug Dosing mL/min Estimated GFR (MDRD) ml/min Glucose (74-106) mg/dL Hemoglobin A1c 5.3 (4.5-6.2) % Calcium (8.5-10.1) mg/dL Total Bilirubin (0.2-1.0) mg/dL AST (15-37) IU/L ALT (14-63) IU/L Alkaline Phosphatase (46-116) U/L Troponin I (0.000-0.056) ng/mL B-Natriuretic Peptide (<100) PG/ML Total Protein (6.4-8.2) g/dL Albumin (3.4-5.0) g/dL Globulin (2.6-4.0) g/dL Albumin/Globulin Ratio (0.9-1.6) Triglycerides 44 (0-200) mg/dL Cholesterol 107 (50-200) mg/dL LDL Cholesterol, Calc 46 L (60-180) mg/dL VLDL Cholesterol 8 (5-55) mg/dL HDL Cholesterol 52 (40-60) mg/dL Cholesterol/HDL Ratio 2.1 L (3.3-6.0) Urine Color Urine Appearance Urine pH (5.0-8.0) Ur Specific [place] (1.001-1.035) Urine Protein (NEGATIVE) mg/dL Urine Glucose (UA) (NEGATIVE) mg/dL Urine Ketones (NEGATIVE) mg/dL Urine Occult Blood (NEGATIVE) Urine Nitrite (NEGATIVE) Urine Bilirubin (NEGATIVE) Urine Urobilinogen (<2.0) EU/dL Ur Leukocyte Esterase (NEGATIVE) Urine RBC (0-2/HPF) Urine WBC (0-5/HPF) Ur Epithelial Cells (NONE-FEW) Urine Bacteria (NEGATIVE) 08/14/18 Range/Units 04:40 WBC (4.0-11.0) K/uL RBC (4.50-5.90) M/uL Hgb (13.0-17.0) g/dL Hct (38.0-50.0) % MCV (80.0-98.0) fL MCH (27.0-32.0) pg MCHC (31.0-37.0) g/dL RDW Std Deviation (28.0-62.0) fl RDW Coeff of [place] (11.0-15.0) % Plt Count (150-400) K/uL MPV (7.40-12.00) fL Neut % (Auto) (48.0-80.0) % Lymph % (Auto) (16.0-40.0) % [place] % (Auto) (0.0-15.0) % Eos % (Auto) (0.0-7.0) % Baso % (Auto) (0.0-1.5) % Neut # (Auto) (1.4-5.7) K/uL Lymph # (Auto) (0.6-2.4) K/uL [place] # (Auto) (0.0-0.8) K/uL Eos # (Auto) (0.0-0.7) K/uL Baso # (Auto) (0.0-0.1) K/uL Nucleated RBC % /100WBC Nucleated RBCs # K/uL INR Lactate (0.20-2.00) mmol/L Sodium 137 (136-148) mmol/L Potassium 3.9 (3.5-5.1) mmol/L Chloride 104 (98-107) mmol/L Carbon Dioxide 20.7 L (21.0-32.0) mmol/L BUN 19 H (7.0-18.0) mg/dL Creatinine 1.3 (0.8-1.3) mg/dL Est Cr Clr Drug Dosing 53.81 mL/min Estimated GFR (MDRD) 54.4 ml/min Glucose 235 H (74-106) mg/dL Hemoglobin A1c (4.5-6.2) % Calcium 8.6 (8.5-10.1) mg/dL Total Bilirubin (0.2-1.0) mg/dL AST (15-37) IU/L ALT (14-63) IU/L Alkaline Phosphatase (46-116) U/L Troponin I (0.000-0.056) ng/mL B-Natriuretic Peptide (<100) PG/ML Total Protein (6.4-8.2) g/dL Albumin (3.4-5.0) g/dL Globulin (2.6-4.0) g/dL Albumin/Globulin Ratio (0.9-1.6) Triglycerides (0-200) mg/dL Cholesterol (50-200) mg/dL LDL Cholesterol, Calc (60-180) mg/dL VLDL Cholesterol (5-55) mg/dL HDL Cholesterol (40-60) mg/dL Cholesterol/HDL Ratio (3.3-6.0) Urine Color Urine Appearance Urine pH (5.0-8.0) Ur Specific [place] (1.001-1.035) Urine Protein (NEGATIVE) mg/dL Urine Glucose (UA) (NEGATIVE) mg/dL Urine Ketones (NEGATIVE) mg/dL Urine Occult Blood (NEGATIVE) Urine Nitrite (NEGATIVE) Urine Bilirubin (NEGATIVE) Urine Urobilinogen (<2.0) EU/dL Ur Leukocyte Esterase (NEGATIVE) Urine RBC (0-2/HPF) Urine WBC (0-5/HPF) Ur Epithelial Cells (NONE-FEW) Urine Bacteria (NEGATIVE) Med Orders - Current: Current Medications Acetaminophen (Tylenol Extra Strength) 1,000 mg PO Q6HR PRN PRN Reason: Pain Albuterol (Ventolin Hfa) 0 gm INH Q4H PRN PRN Reason: Dyspnea Albuterol/Ipratropium (Duoneb 3.0-0.5 Mg/3 Ml) 3 ml INH TIDRT [facility] Last Admin: 08/14/18 06:41 Dose: 3 ml Aspirin (Aspirin) 81 mg PO DAILY [facility] Last Admin: 08/14/18 09:04 Dose: 81 mg Atorvastatin Calcium (Lipitor) 40 mg PO BEDTIME [facility] Budesonide/Formoterol Fumarate (Symbicort 160-4.5 Mcg) 0 gm INH BID [facility] Clopidogrel Bisulfate (Plavix) 75 mg PO DAILY [facility] Last Admin: 08/14/18 09:04 Dose: 75 mg Fish Oil (Fish Oil) 1 gm PO DAILY [facility] Last Admin: 08/14/18 09:04 Dose: 1 gm Heparin Sodium (Porcine) (Heparin Sodium) 5,000 units SUBCUT Q8H [facility] Last Admin: 08/14/18 06:25 Dose: 5,000 units Ceftriaxone Sodium 1 gm/ (Sodium Chloride) 50 mls @ 100 mls/hr IV Q24H [facility] Last Admin: 08/13/18 22:51 Dose: 100 mls/hr Metoprolol Tartrate (Lopressor) 12.5 mg PO BID [facility] Last Admin: 08/14/18 09:04 Dose: 12.5 mg Pantoprazole Sodium (Protonix) 40 mg PO ACBREAKFAST [facility] Last Admin: 08/14/18 06:29 Dose: 40 mg Paroxetine HCl (Paxil) 20 mg PO DAILY [facility] Last Admin: 08/14/18 09:04 Dose: Not Given Tiotropium [place] (Spiriva Handihaler) 18 mcg INH DAILY [facility] Trazodone HCl (Trazodone) 50 mg PO BEDTIME [facility] Discontinued Medications Albuterol/Ipratropium (Duoneb 3.0-0.5 Mg/3 Ml) 3 ml NEB ONETIME ONE Stop: 08/13/18 16:45 Last Admin: 08/13/18 16:54 Dose: 3 ml Sodium Chloride (Normal Saline) 1,000 mls @ 125 mls/hr IV STAT MICHAEL Last Admin: 08/14/18 03:52 Dose: 125 mls/hr Vancomycin HCl 1 gm/ Sodium (Chloride) 250 mls @ 166 mls/hr IV ONETIME ONE Stop: 08/13/18 19:19 Last Admin: 08/13/18 19:08 Dose: Not Given Levofloxacin/Dextrose 750 mg/ (Premix) 150 mls @ 100 mls/hr IV ONETIME ONE Stop: 08/13/18 19:19 Last Admin: 08/13/18 18:19 Dose: 100 mls/hr Trimethoprim/Sulfamethoxazole (20 ml/ Dextrose/Water) 520 mls @ 250 mls/hr IV NOW STA Stop: 08/13/18 20:45 Last Admin: 08/13/18 21:45 Dose: Not Given Vancomycin HCl 1 gm/ Sodium (Chloride) 250 mls @ 166 mls/hr IV ONETIME ONE Stop: 08/13/18 20:15 Last Admin: 08/13/18 20:00 Dose: Not Given Vancomycin HCl 1 gm/ Sodium (Chloride) 250 mls @ 250 mls/hr IV ONETIME ONE Stop: 08/13/18 20:07 Last Admin: 08/13/18 19:59 Dose: 250 mls/hr Methylprednisolone Sodium Succinate (Solu-Medrol) 125 mg IVPUSH ONETIME ONE Stop: 08/13/18 17:47 Last Admin: 08/13/18 18:19 Dose: 125 mg - Exam General: Alert, Oriented, Cooperative Lungs: Clear to Auscultation, Normal Respiratory Effort. No: Crackles, Wheezing Cardiovascular: Regular Rate, Regular Rhythm GI/Abdominal Exam: Normal Bowel Sounds, Soft, Non-Tender, No Distention Extremities: Normal Inspection, No Pedal Edema Skin: Warm, Dry - Problem List Review Problem List Initiated/Reviewed/Updated: Yes - Plan Plan:: A: 1. UTI, pending cultures 2. Leukocytosis 3. Acute on chronic kidney disease 4. PMH COPD, CAD P: 1. UTI- pending urine culture. continue ceftriaxone. 2. Acute on chronic kidney disease, improving. Continue monitoring. 3. PMH COPD, CAD- continue home medications. Dispo: likely dc tomorrow
[2018-08-14] MEDS: traZODone 50 MG Tab PO SCH (21:39)
[2018-08-14] MEDS: atorvaSTATin 40 MG Tab PO SCH (21:39)
[2018-08-14] MEDS: cefTRIAXone 1 GM in Premix Bag 1 BAG IV SCH (21:41)
[2018-08-15 05:49] LABS: CHLORIDE,CL 106 mmol/L (98-107); SODIUM,NA 138 mmol/L (136-148)
[2018-08-15] MEDS: Albuterol/Ipratropium 3.0-0.5 MG/3 ML Neb Soln INH SCH ×3 (05:53→21:20)
[2018-08-15] MEDS: Heparin Sodium 5,000 Units/ML Vial SUBCUT SCH ×2 (06:39→13:33)
[2018-08-15] MEDS: Pantoprazole 40 MG Tab.CR PO SCH (06:41)
[2018-08-15] MEDS: Metoprolol Tartrate 25 MG Tab PO SCH ×2 (08:06→20:51)
[2018-08-15] MEDS: Aspirin 81 MG Tab.Chew PO SCH (08:07)
[2018-08-15] MEDS: Clopidogrel 75 MG Tab PO SCH (08:07)
[2018-08-15] MEDS: Fish Oil/Omega-3 Fatty Acids 1 Gm Cap PO SCH (08:07)
[2018-08-15] MEDS: Tiotropium Inhaler 18 MCG Inhalation Powder Cap Kit of 5 INH SCH ×2 (09:00→11:58)
[2018-08-15] MEDS: Budesonide/Formoterol 160-4.5 MCG/Puff 6 GM Inhaler INH SCH ×2 (09:00→18:11)
--- NOTE | 2018-08-15 10:05 | CR ---
EXAMINATION: Two-view chest (PA and Lateral views). HISTORY: Shortness of breath. FINDINGS: The trachea is midline. The cardiomediastinal silhouette is within normal limits. No pulmonary infiltrates, effusions or pneumothorax. Moderate hyperinflation and interstitial prominence. Coronary stents are noted. Osseous structures appear osteopenic. IMPRESSION: No acute cardiopulmonary process.
[2018-08-15] MEDS: Tamsulosin 0.4 MG Cap.ER PO SCH (11:02)
--- NOTE | 2018-08-15 11:48 | PCM.PN ---
- General Info Date of Service: 08/15/18 Subjective Update: No acute events overnight. Afebrile. Feeling better this morning. No chest pain , dyspnea, abdominal pain, dysuria, diarrhea. - Patient Data Vitals - Most Recent: Last Vital Signs Temp 36.7 C 08/15/18 07:30 Pulse 90 08/15/18 08:06 Resp 17 08/15/18 07:30 BP 129/57 L 08/15/18 08:06 Pulse Ox 93 L 08/15/18 07:30 Weight - Most Recent: 77.156 kg I&O - Last 24 Hours: Intake & Output 08/14/18 08/15/18 08/15/18 22:59 06:59 14:59 Intake Total 1510 1470 Output Total 200 1540 Balance 1310 -70 Lab Results Last 24 Hours: Laboratory Results - last 24 hr 08/15/18 08/15/18 Range/Units 04:55 04:55 WBC 21.74 H (4.0-11.0) K/uL RBC 4.43 L (4.50-5.90) M/uL Hgb 12.9 L (13.0-17.0) g/dL Hct 37.2 L (38.0-50.0) % MCV 84.0 (80.0-98.0) fL MCH 29.1 (27.0-32.0) pg MCHC 34.7 (31.0-37.0) g/dL RDW Std Deviation 39.2 (28.0-62.0) fl RDW Coeff of Rebecca 13 (11.0-15.0) % Plt Count 184 (150-400) K/uL MPV 10.30 (7.40-12.00) fL Add Manual Diff YES Neutrophils % (Manual) 85 H (48.0-80.0) % Band Neutrophils % 1 % Lymphocytes % (Manual) 10 L (16.0-40.0) % Monocytes % (Manual) 4 (0.0-15.0) % Nucleated RBC % 0.0 /100WBC Absolute Seg Neuts 18.5 H (1.4-5.7) Band Neutrophils # 0.2 Lymphocytes # (Manual) 2.2 (0.6-2.4) Monocytes # (Manual) 0.9 H (0.0-0.8) Nucleated RBCs # 0 K/uL Sodium 138 (136-148) mmol/L Potassium 3.9 (3.5-5.1) mmol/L Chloride 106 (98-107) mmol/L Carbon Dioxide 23.7 (21.0-32.0) mmol/L BUN 22 H (7.0-18.0) mg/dL Creatinine 1.1 (0.8-1.3) mg/dL Est Cr Clr Drug Dosing 63.60 mL/min Estimated GFR (MDRD) > 60.0 ml/min Glucose 134 H (74-106) mg/dL Calcium 8.5 (8.5-10.1) mg/dL Jorge L Results Last 24 Hours: Microbiology 08/13/18 17:55 Urine Culture - Final Urine, Clean Catch Escherichia Coli Normal Urogenital Myriam 08/13/18 16:53 Aerobic Blood Culture - Preliminary Blood - Venous - Lab Draw NO GROWTH AFTER 1 DAY Anaerobic Blood Culture - Preliminary NO GROWTH AFTER 1 DAY 08/13/18 16:35 Aerobic Blood Culture - Preliminary Blood - Venous NO GROWTH AFTER 1 DAY Anaerobic Blood Culture - Preliminary NO GROWTH AFTER 1 DAY Med Orders - Current: Current Medications Acetaminophen (Tylenol Extra Strength) 1,000 mg PO Q6HR PRN PRN Reason: Pain Albuterol (Ventolin Hfa) 0 gm INH Q4H PRN PRN Reason: Dyspnea Albuterol/Ipratropium (Duoneb 3.0-0.5 Mg/3 Ml) 3 ml INH TIDRT [facility] Last Admin: 08/15/18 05:53 Dose: 3 ml Aspirin (Aspirin) 81 mg PO DAILY [facility] Last Admin: 08/15/18 08:07 Dose: 81 mg Atorvastatin Calcium (Lipitor) 40 mg PO BEDTIME [facility] Last Admin: 08/14/18 21:39 Dose: 40 mg Budesonide/Formoterol Fumarate (Symbicort 160-4.5 Mcg) 0 gm INH Q12H [facility] Clopidogrel Bisulfate (Plavix) 75 mg PO DAILY [facility] Last Admin: 08/15/18 08:07 Dose: 75 mg Fish Oil (Fish Oil) 1 gm PO DAILY [facility] Last Admin: 08/15/18 08:07 Dose: 1 gm Heparin Sodium (Porcine) (Heparin Sodium) 5,000 units SUBCUT Q8H [facility] Last Admin: 08/15/18 06:39 Dose: 5,000 units Ceftriaxone Sodium/Dextrose 1 (gm/ Premix) 50 mls @ 100 mls/hr IV Q24H [facility] Last Admin: 08/14/18 21:41 Dose: 100 mls/hr Metoprolol Tartrate (Lopressor) 12.5 mg PO BID [facility] Last Admin: 08/15/18 08:06 Dose: 12.5 mg Pantoprazole Sodium (Protonix) 40 mg PO ACBREAKFAST [facility] Last Admin: 08/15/18 06:41 Dose: 40 mg Tamsulosin HCl (Flomax) 0.4 mg PO PCBREAKFAST [facility] Last Admin: 08/15/18 11:02 Dose: 0.4 mg Tiotropium [place] (Spiriva Handihaler) 18 mcg INH DAILY@1200 MICHAEL Trazodone HCl (Trazodone) 50 mg PO BEDTIME [facility] Last Admin: 08/14/18 21:39 Dose: 50 mg Discontinued Medications Albuterol/Ipratropium (Duoneb 3.0-0.5 Mg/3 Ml) 3 ml NEB ONETIME ONE Stop: 08/13/18 16:45 Last Admin: 08/13/18 16:54 Dose: 3 ml Budesonide/Formoterol Fumarate (Symbicort 160-4.5 Mcg) 0 gm INH BID [facility] Last Admin: 08/15/18 09:00 Dose: 2 puff Sodium Chloride (Normal Saline) 1,000 mls @ 125 mls/hr IV STAT [facility] Last Admin: 08/14/18 03:52 Dose: 125 mls/hr Vancomycin HCl 1 gm/ Sodium (Chloride) 250 mls @ 166 mls/hr IV ONETIME ONE Stop: 08/13/18 19:19 Last Admin: 08/13/18 19:08 Dose: Not Given Levofloxacin/Dextrose 750 mg/ (Premix) 150 mls @ 100 mls/hr IV ONETIME ONE Stop: 08/13/18 19:19 Last Admin: 08/13/18 18:19 Dose: 100 mls/hr Trimethoprim/Sulfamethoxazole (20 ml/ Dextrose/Water) 520 mls @ 250 mls/hr IV NOW STA Stop: 08/13/18 20:45 Last Admin: 08/13/18 21:45 Dose: Not Given Vancomycin HCl 1 gm/ Sodium (Chloride) 250 mls @ 166 mls/hr IV ONETIME ONE Stop: 08/13/18 20:15 Last Admin: 08/13/18 20:00 Dose: Not Given Vancomycin HCl 1 gm/ Sodium (Chloride) 250 mls @ 250 mls/hr IV ONETIME ONE Stop: 08/13/18 20:07 Last Admin: 08/13/18 19:59 Dose: 250 mls/hr Ceftriaxone Sodium 1 gm/ (Sodium Chloride) 50 mls @ 100 mls/hr IV Q24H [facility] Last Admin: 08/13/18 22:51 Dose: 100 mls/hr Methylprednisolone Sodium Succinate (Solu-Medrol) 125 mg IVPUSH ONETIME ONE Stop: 08/13/18 17:47 Last Admin: 08/13/18 18:19 Dose: 125 mg Paroxetine HCl (Paxil) 20 mg PO DAILY [facility] Last Admin: 08/14/18 09:04 Dose: Not Given Tiotropium [place] (Spiriva Handihaler) 18 mcg INH DAILY [facility] Last Admin: 08/15/18 09:00 Dose: 18 mcg - Exam General: Alert, Oriented, Cooperative, No Acute Distress Lungs: Normal Respiratory Effort, Rhonchi. No: Wheezing Cardiovascular: Regular Rate, Regular Rhythm GI/Abdominal Exam: Normal Bowel Sounds, Soft, Non-Tender, No Distention Extremities: Normal Inspection, No Pedal Edema Skin: Warm, Dry - Problem List Review Problem List Initiated/Reviewed/Updated: Yes - My Orders Last 24 Hours: My Active Orders 08/15/18 08:24 Patient Status [ADT] Routine - Plan Plan:: A: 1. E. Coli UTI 2. Leukocytosis likely reactive 3. Acute on chronic kidney disease, improving 4. PMH CAD, COPD P: 1. E.Coli UTI. Pansensitive urine culture. Will continue with ceftriaxone. 2. Leukocytosis, likely 2/2 steroid administration at time of admission. Ordered chest xray which did not show any consolidations. Will monitor. Dispo: plan to dc tomorrow.
[2018-08-15] MEDS ORDERED: Furosemide 20 MG Tab PO ONE (16:00)
[2018-08-15] MEDS: atorvaSTATin 40 MG Tab PO SCH (20:50)
[2018-08-15] MEDS: traZODone 50 MG Tab PO SCH (20:52)
[2018-08-15] MEDS: cefTRIAXone 1 GM in Premix Bag 1 BAG IV SCH (22:24)
[2018-08-16] MEDS: Albuterol/Ipratropium 3.0-0.5 MG/3 ML Neb Soln INH SCH (06:11)
[2018-08-16] MEDS: Budesonide/Formoterol 160-4.5 MCG/Puff 6 GM Inhaler INH SCH (06:12)
[2018-08-16] MEDS: Pantoprazole 40 MG Tab.CR PO SCH (06:39)
[2018-08-16 06:46] LABS: CHLORIDE,CL 106 mmol/L (98-107); SODIUM,NA 140 mmol/L (136-148)
[2018-08-16] MEDS: Fish Oil/Omega-3 Fatty Acids 1 Gm Cap PO SCH (08:23)
[2018-08-16] MEDS: Clopidogrel 75 MG Tab PO SCH (08:24)
[2018-08-16] MEDS: Aspirin 81 MG Tab.Chew PO SCH (08:24)
[2018-08-16] MEDS: Tamsulosin 0.4 MG Cap.ER PO SCH (08:25)
[2018-08-16] MEDS: Metoprolol Tartrate 25 MG Tab PO SCH (08:26)
[2018-08-16] MEDS ORDERED: Phenazopyridine 200 MG Tab PO SCH ×2 (09:16→14:00)
[2018-08-16 10:38] VITALS: BP 127/68
[2018-08-16] MEDS: Tiotropium Inhaler 18 MCG Inhalation Powder Cap Kit of 5 INH SCH (11:11)
--- NOTE | 2018-08-16 11:47 | PCM.DCSUM1 ---
Discharge Summary - Hospital Course Free Text/Narrative:: 72 y/o male with history of COPD, CAD, kidney disease who presented to the ER complaining of generalized weakness. Found to have leukocytosis of 20 and admitted for sepsis secondary to E.coli UTI which was pansensitive. Started on ceftriaxone which improved WBC. He remained afebrile and was feeling better the next day. He was started on Flomax for suspected BPH. He was prescribed Bactrim DS BID for 7 days and advised to follow-up with his PCP. - Discharge Data Discharge Date: 08/16/18 Discharge Disposition: Home, Self-Care 01 Condition: Good - Patient Instructions Diet: Regular Diet as Tolerated Activity: As Tolerated Notify Provider of: Fever, Increased Pain, Swelling and Redness, Drainage, Nausea and/or Vomiting - Discharge Plan *PRESCRIPTION DRUG MONITORING PROGRAM REVIEWED*: Not Applicable *COPY OF PRESCRIPTION DRUG MONITORING REPORT IN PATIENT KALI: Not Applicable Prescriptions/Med Rec: Phenazopyridine HCl [Azo Urinary Pain Relief] 99.5 mg PO TID PRN #30 tablet PRN Reason: Dysuria Sulfamethoxazole/Trimethoprim [Bactrim Ds Tablet] 1 each PO BID 7 Days #14 tablet Tamsulosin [Flomax] 0.4 mg PO PCBREAKFAST #30 cap.er Home Medications: Home Meds Albuterol [Ventolin HFA] 2 puff INH Q6H PRN 06/14/13 [History] Aspirin 81 mg PO DAILY 08/12/16 [History] Furosemide 10 mg PO DAILY 08/12/16 [History] Metoprolol Tartrate 12.5 mg PO BID 08/12/16 [History] Omeprazole 20 mg PO ACBREAKFAST 08/12/16 [History] traZODone HCl [Trazodone HCl] 50 mg PO BEDTIME 08/12/16 [History] Acetaminophen [Acetaminophen Extra Strength] 1,000 mg PO Q6HR PRN 08/25/16 [ History] Budesonide/Formoterol [Symbicort 160-4.5 MCG] 2 inh IH BID 08/25/16 [History] atorvaSTATin Calcium [Atorvastatin Calcium] 40 mg PO BEDTIME 03/21/17 [History] Clopidogrel Bisulfate [Clopidogrel] 75 mg PO DAILY #0 03/22/17 [Rx] Albuterol [Ventolin HFA] 1 - 2 puff INH Q4H PRN 08/13/18 [History] Albuterol/Ipratropium [DuoNeb 3.0-0.5 MG/3 ML] 1 dose INH TID 08/13/18 [History] Fish Oil/[place]-3 Fatty Acids [Fish Oil 1,000 MG] 1,000 mg PO DAILY 08/13/18 [ History] Tiotropium [Spiriva HandiHaler] 2 puff INH DAILY 08/13/18 [History] Phenazopyridine HCl [Azo Urinary Pain Relief] 99.5 mg PO TID PRN #30 tablet [Rx] Sulfamethoxazole/Trimethoprim [Bactrim Ds Tablet] 1 each PO BID 7 Days #14 tablet 08/16/18 [Rx] Tamsulosin [Flomax] 0.4 mg PO PCBREAKFAST #30 cap.er 08/16/18 [Rx] Patient Handouts: Urinary Tract Infection, Adult, [id number] Referrals: Duncan Mclaughlin MD [Primary Care Provider] - 08/27/18 12:30 pm - Discharge Summary/Plan Comment DC Time >30 min.: No - Patient Data Vitals - Most Recent: Last Vital Signs Temp 37.5 C 08/16/18 10:37 Pulse 73 08/16/18 10:37 Resp 16 08/16/18 10:37 BP 127/68 08/16/18 10:37 Pulse Ox 95 08/16/18 10:37 Weight - Most Recent: 77.156 kg I&O - Last 24 hours: Intake & Output 08/15/18 08/16/18 08/16/18 22:59 06:59 14:59 Intake Total 2100 600 480 Output Total 900 1975 Balance 1200 -1375 480 Lab Results - Last 24 hrs: Laboratory Results - last 24 hr 08/16/18 08/16/18 Range/Units 06:00 06:00 WBC 8.22 (4.0-11.0) K/uL RBC 4.52 (4.50-5.90) M/uL Hgb 13.0 (13.0-17.0) g/dL Hct 37.7 L (38.0-50.0) % MCV 83.4 (80.0-98.0) fL MCH 28.8 (27.0-32.0) pg MCHC 34.5 (31.0-37.0) g/dL RDW Std Deviation 39.8 (28.0-62.0) fl RDW Coeff of Rebecca 13 (11.0-15.0) % Plt Count 205 (150-400) K/uL MPV 10.00 (7.40-12.00) fL Nucleated RBC % 0.0 /100WBC Nucleated RBCs # 0 K/uL Sodium 140 (136-148) mmol/L Potassium 3.9 (3.5-5.1) mmol/L Chloride 106 (98-107) mmol/L Carbon Dioxide 26.9 (21.0-32.0) mmol/L BUN 18 (7.0-18.0) mg/dL Creatinine 1.1 (0.8-1.3) mg/dL Est Cr Clr Drug Dosing 63.60 mL/min Estimated GFR (MDRD) > 60.0 ml/min Glucose 107 H (74-106) mg/dL Calcium 8.6 (8.5-10.1) mg/dL LORIN Results - Last 24 hrs: Microbiology 08/13/18 16:53 Aerobic Blood Culture - Preliminary Blood - Venous - Lab Draw NO GROWTH AFTER 2 DAYS Anaerobic Blood Culture - Preliminary NO GROWTH AFTER 2 DAYS 08/13/18 16:35 Aerobic Blood Culture - Preliminary Blood - Venous NO GROWTH AFTER 2 DAYS Anaerobic Blood Culture - Preliminary NO GROWTH AFTER 2 DAYS 08/13/18 17:55 Urine Culture - Final Urine, Clean Catch Escherichia Coli Normal Urogenital Myriam Med Orders - Current: Current Medications Acetaminophen (Tylenol Extra Strength) 1,000 mg PO Q6HR PRN PRN Reason: Pain Albuterol (Ventolin Hfa) 0 gm INH Q4H PRN PRN Reason: Dyspnea Albuterol/Ipratropium (Duoneb 3.0-0.5 Mg/3 Ml) 3 ml INH TIDRT [facility] Last Admin: 08/16/18 06:11 Dose: 3 ml Aspirin (Aspirin) 81 mg PO DAILY [facility] Last Admin: 08/16/18 08:24 Dose: 81 mg Atorvastatin Calcium (Lipitor) 40 mg PO BEDTIME [facility] Last Admin: 08/15/18 20:50 Dose: 40 mg Budesonide/Formoterol Fumarate (Symbicort 160-4.5 Mcg) 0 gm INH Q12H [facility] Last Admin: 08/16/18 06:12 Dose: 2 puff Clopidogrel Bisulfate (Plavix) 75 mg PO DAILY [facility] Last Admin: 08/16/18 08:24 Dose: 75 mg Fish Oil (Fish Oil) 1 gm PO DAILY [facility] Last Admin: 08/16/18 08:23 Dose: 1 gm Ceftriaxone Sodium/Dextrose 1 (gm/ Premix) 50 mls @ 100 mls/hr IV Q24H [facility] Last Admin: 08/15/18 22:24 Dose: 100 mls/hr Metoprolol Tartrate (Lopressor) 12.5 mg PO BID [facility] Last Admin: 08/16/18 08:26 Dose: 12.5 mg Pantoprazole Sodium (Protonix) 40 mg PO ACBREAKFAST [facility] Last Admin: 08/16/18 06:39 Dose: 40 mg Phenazopyridine HCl (Pyridium) 200 mg PO TID [facility] Last Admin: 08/16/18 09:49 Dose: 200 mg Tamsulosin HCl (Flomax) 0.4 mg PO PCBREAKFAST [facility] Last Admin: 08/16/18 08:25 Dose: 0.4 mg Tiotropium [place] (Spiriva Handihaler) 18 mcg INH DAILY@1200 [facility] Last Admin: 08/16/18 11:11 Dose: Not Given Trazodone HCl (Trazodone) 50 mg PO BEDTIME [facility] Last Admin: 08/15/18 20:52 Dose: 50 mg Discontinued Medications Albuterol/Ipratropium (Duoneb 3.0-0.5 Mg/3 Ml) 3 ml NEB ONETIME ONE Stop: 08/13/18 16:45 Last Admin: 08/13/18 16:54 Dose: 3 ml Budesonide/Formoterol Fumarate (Symbicort 160-4.5 Mcg) 0 gm INH BID [facility] Last Admin: 08/15/18 09:00 Dose: 2 puff Furosemide (Lasix) 20 mg PO ONETIME ONE Stop: 08/15/18 16:01 Last Admin: 08/15/18 16:50 Dose: 20 mg Heparin Sodium (Porcine) (Heparin Sodium) 5,000 units SUBCUT Q8H [facility] Last Admin: 08/15/18 13:33 Dose: Not Given Sodium Chloride (Normal Saline) 1,000 mls @ 125 mls/hr IV STAT [facility] Last Admin: 08/14/18 03:52 Dose: 125 mls/hr Vancomycin HCl 1 gm/ Sodium (Chloride) 250 mls @ 166 mls/hr IV ONETIME ONE Stop: 08/13/18 19:19 Last Admin: 08/13/18 19:08 Dose: Not Given Levofloxacin/Dextrose 750 mg/ (Premix) 150 mls @ 100 mls/hr IV ONETIME ONE Stop: 08/13/18 19:19 Last Admin: 08/13/18 18:19 Dose: 100 mls/hr Trimethoprim/Sulfamethoxazole (20 ml/ Dextrose/Water) 520 mls @ 250 mls/hr IV NOW STA Stop: 08/13/18 20:45 Last Admin: 08/13/18 21:45 Dose: Not Given Vancomycin HCl 1 gm/ Sodium (Chloride) 250 mls @ 166 mls/hr IV ONETIME ONE Stop: 08/13/18 20:15 Last Admin: 08/13/18 20:00 Dose: Not Given Vancomycin HCl 1 gm/ Sodium (Chloride) 250 mls @ 250 mls/hr IV ONETIME ONE Stop: 08/13/18 20:07 Last Admin: 08/13/18 19:59 Dose: 250 mls/hr Ceftriaxone Sodium 1 gm/ (Sodium Chloride) 50 mls @ 100 mls/hr IV Q24H [facility] Last Admin: 08/13/18 22:51 Dose: 100 mls/hr Methylprednisolone Sodium Succinate (Solu-Medrol) 125 mg IVPUSH ONETIME ONE Stop: 08/13/18 17:47 Last Admin: 08/13/18 18:19 Dose: 125 mg Paroxetine HCl (Paxil) 20 mg PO DAILY [facility] Last Admin: 08/14/18 09:04 Dose: Not Given Phenazopyridine HCl (Pyridium) 200 mg PO TID [facility] Tiotropium [place] (Spiriva Handihaler) 18 mcg INH DAILY [facility] Last Admin: 08/15/18 09:00 Dose: 18 mcg
== END 2018-08-16 13:28 | disposition home or self-care (01) | DRG 872 ==
LOC: MW.ED 16:27 → MW.MS 19:36 → OBSVTOIN 08-15 08:24 → MW.MS 08-15 15:39
PROVIDERS: ADMIT Internal Medicine; ATTEND Internal Medicine
DX: A41.51 Sepsis due to Escherichia coli [E. coli] (principal); N39.0 Urinary tract infection, site not specified; N17.9 Acute kidney failure, unspecified; J44.9 Chronic obstructive pulmonary disease, unspecified; Z88.0 Allergy status to penicillin; N18.9 Chronic kidney disease, unspecified; T38.0X5A Adverse effect of glucocorticoids and synthetic analogues, initial encounter; Z88.1 Allergy status to other antibiotic agents; Z88.8 Allergy status to other drugs, medicaments and biological substances; Z90.49 Acquired absence of other specified parts of digestive tract; Z79.02 Long term (current) use of antithrombotics/antiplatelets; Z79.82 Long term (current) use of aspirin; Z79.51 Long term (current) use of inhaled steroids; Z79.899 Other long term (current) drug therapy; H91.90 Unspecified hearing loss, unspecified ear; H54.7 Unspecified visual loss; I25.10 Atherosclerotic heart disease of native coronary artery without angina pectoris; Z95.5 Presence of coronary angioplasty implant and graft; I25.2 Old myocardial infarction; K21.9 Gastro-esophageal reflux disease without esophagitis; Z99.81 Dependence on supplemental oxygen; Z87.891 Personal history of nicotine dependence
CPT/HCPCS: 36415 ×3; 71045; 80048 ×2; 80053; 80061; 81001; 83036; 83605; 83880; 84484; 85025 ×3; 85610; 87040 ×2; 87086; 87088; 87186; 93005; 94640 ×5; 96361; 96374; 96375; 99285; A4217 ×2; A9270 ×14; J0696 ×2; J1644 ×5; J1956; J2930; J3370; J7040 ×2; J7050 ×2; 71046; 71046-26; 85027; J7620-GY

== ENCOUNTER 2019-11-12 12:54 | Emergency (ER) | payer MEDICARE, OTHER ==
--- NOTE | 2019-11-12 13:30 | EDM.PDOC ---
ED HPI GENERAL MEDICAL PROBLEM - General Chief Complaint: Chest Pain Stated Complaint: [facility] Time Seen by Provider: 11/12/19 12:58 - History of Present Illness INITIAL COMMENTS - FREE TEXT/NARRATIVE: 74-year-old male with history of COPD on 3 L O2 at baseline at rest up to 4 when he is working who is presenting with now improved right-sided chest discomfort. Patient reports he was working yesterday and had some mild discomfort in the right chest worsened with turning and felt like he was not breathing as well on that side. [facility] and was referred to the ER for some additional evaluation. Patient states that right now he feels "pretty good." He denies having any more shortness of breath than normal the pain worsens with movement but it is not pleuritic no nausea no vomiting no recent change in cough no fever no change in sputum production. No alleviating factors radiation or other associated symptoms. right chest Pain Score (Numeric/FACES): 2 - Related Data Allergies Allergy/AdvReac Type Severity Reaction Status Date / Time levofloxacin [From Levaquin] Allergy Airway Verified 11/12/19 13:01 Tightness Penicillins Allergy Rash Verified 11/12/19 13:01 propranolol Allergy Airway Verified 11/12/19 13:01 Tightness tetracycline Allergy Rash Verified 11/12/19 13:01 Home Meds: Home Meds Metoprolol Tartrate 12.5 mg PO BID 08/12/16 [History] Omeprazole 20 mg PO ACBREAKFAST 08/12/16 [History] Budesonide/Formoterol [Symbicort 160-4.5 MCG] 2 inh IH BID 08/25/16 [History] atorvaSTATin Calcium [Atorvastatin Calcium] 40 mg PO BEDTIME 03/21/17 [History] Clopidogrel Bisulfate [Clopidogrel] 75 mg PO DAILY #0 03/22/17 [Rx] Albuterol/Ipratropium [DuoNeb 3.0-0.5 MG/3 ML] 1 dose INH QID 08/13/18 [History] Fish Oil/Mehama-3 Fatty Acids [Fish Oil 1,000 MG] 1,000 mg PO DAILY 08/13/18 [History] Tiotropium [Spiriva HandiHaler] 2 puff INH DAILY 08/13/18 [History] Tamsulosin [Flomax] 0.4 mg PO PCBREAKFAST #30 cap.er 08/16/18 [Rx] Aspirin [Aspirin EC] 81 mg PO DAILY 11/12/19 [History] Furosemide 10 mg PO DAILY 11/12/19 [History] traZODone HCl [Trazodone HCl] 50 mg PO BEDTIME 11/12/19 [History] Past Medical History HEENT History: Reports: Hard of Hearing Other HEENT History: wears glasses Cardiovascular History: Reports: [place], Stents Other Cardiovascular History: 7 stents, done july 27, 2016 Respiratory History: Reports: COPD, SOB Other Respiratory History: 02 dependent Gastrointestinal History: Reports: GERD Musculoskeletal History: Reports: None Neurological History: Reports: None Psychiatric History: Reports: None Endocrine/Metabolic History: Reports: None Hematologic History: Reports: None Immunologic History: Reports: None Oncologic (Cancer) History: Reports: Colon Dermatologic History: Reports: Other (See Below) Other Dermatologic History: vitalgo - Infectious Disease History Infectious Disease History: Reports: Chicken Pox, Measles - Past Surgical History Head Surgeries/Procedures: Reports: None HEENT Surgical History: Reports: None Cardiovascular Surgical History: Reports: Coronary Artery Stent Respiratory Surgical History: Reports: None Other GI Surgeries/Procedures: Colon Resection r/t cancer Musculoskeletal Surgical History: Reports: None Oncologic Surgical History: Reports: Other (See Below) Other Oncologic Surgeries/Procedures: colon resection Dermatological Surgical History: Reports: None Social & Family History - Family History Family Medical History: Noncontributory Oncologic: Reports: Esophageal - Tobacco Use Smoking Status *Q: Former Smoker Used Tobacco, but Quit: Yes Month/Year Tobacco Last Used: 2016 - Caffeine Use Caffeine Use: Reports: Coffee Other Caffeine Use: 1 cup per day - Recreational Drug Use Recreational Drug Use: No ED ROS GENERAL - Review of Systems Review Of Systems: See Below Free Text/Narrative/Comment: General: No fever. Skin: No rash. Eyes: No vision problems. ENT: No sore throat. Neck: No neck stiffness. Respiratory: Per HPI Cardiac: Per HPI Gastrointestinal: No nausea, vomiting or abdominal pain. Urinary: No dysuria. Musculoskeletal: No myalgias/arthralgias. Neurologic: No headache. ED EXAM, GENERAL - Physical Exam Exam: See Below Free Text/Narrative:: General Appearance: No acute distress, appears comfortable Skin: No rash HEENT: Normocephalic/atraumatic, sclera anicteric, mucous membranes moist Neck: Normal range of motion Chest and Lungs: Bilateral breath sounds, clear to auscultation, distant throughout Cardiovascular: Regular rate and rhythm, no murmur, no lower extremity edema Abdomen: Soft, non-tender Back: Normal Musculoskeletal: No edema or tenderness Neurologic: Awake, alert, no obvious deficits, moving all extremities Psychiatric: Appropriate, cooperative EKG INTERPRETATION EKG Date: 11/12/19 Time: 13:33 EKG Interpretation Comments: Sinus bradycardia rate of 53 right bundle branch block no acute ischemia Course - Vital Signs Last Recorded V/S: Last Vital Signs Temp 98.1 F 11/12/19 12:58 Pulse 55 L 11/12/19 12:58 Resp 20 11/12/19 12:58 BP 127/55 L 11/12/19 12:58 Pulse Ox 96 11/12/19 12:58 - Orders/Labs/Meds Orders: Active Orders 24 hr Category Date Time Status EKG 12 Lead [EKG Documentation Completion] [RC] STAT Care 11/12/19 13:26 Active Labs: Laboratory Tests 11/12/19 11/12/19 11/12/19 Range/Units 14:05 14:05 14:05 WBC 7.37 (4.0-11.0) K/uL RBC 4.82 (4.50-5.90) M/uL Hgb 14.3 (13.0-17.0) g/dL Hct 42.0 (38.0-50.0) % MCV 87.1 (80.0-98.0) fL MCH 29.7 (27.0-32.0) pg MCHC 34.0 (31.0-37.0) g/dL RDW Std Deviation 40.0 (28.0-62.0) fl RDW Coeff of Rebecca 13 (11.0-15.0) % Plt Count 190 (150-400) K/uL MPV 10.10 (7.40-12.00) fL Neut % (Auto) 67.9 (48.0-80.0) % Lymph % (Auto) 19.4 (16.0-40.0) % Medina % (Auto) 9.1 (0.0-15.0) % Eos % (Auto) 3.1 (0.0-7.0) % Baso % (Auto) 0.5 (0.0-1.5) % Neut # (Auto) 5.0 (1.4-5.7) K/uL Lymph # (Auto) 1.4 (0.6-2.4) K/uL [place] # (Auto) 0.7 (0.0-0.8) K/uL Eos # (Auto) 0.2 (0.0-0.7) K/uL Baso # (Auto) 0.0 (0.0-0.1) K/uL Nucleated RBC % 0.0 /100WBC Nucleated RBCs # 0 K/uL D-Dimer, Quantitative 0.49 (0.0-0.50) mg/L FEU Sodium 142 (136-148) mmol/L Potassium 4.6 (3.5-5.1) mmol/L Chloride 104 (98-107) mmol/L Carbon Dioxide 32.0 (21.0-32.0) mmol/L BUN 12 (7.0-18.0) mg/dL Creatinine 1.1 (0.8-1.3) mg/dL Est Cr Clr Drug Dosing 61.40 mL/min Estimated GFR (MDRD) > 60.0 ml/min Glucose 89 (74-106) mg/dL Calcium 9.2 (8.5-10.1) mg/dL Troponin I < 0.050 (0.000-0.056) ng/mL Departure - Departure Time of Disposition: 14:43 Disposition: Home, Self-Care 01 Condition: Good Clinical Impression: Atelectasis of right lung - Discharge Information *PRESCRIPTION DRUG MONITORING PROGRAM REVIEWED*: Not Applicable *COPY OF PRESCRIPTION DRUG MONITORING REPORT IN PATIENT KALI: Not Applicable Instructions: Atelectasis, Adult Referrals: Michele Thomas NP [Primary Care Provider] - 3 Days Forms: ED Department Discharge Additional Instructions: Please use the incentive spirometer as instructed approximately once an hour while you are at home and awake. You do not need to take it with you when you leave the house and you do not need to wake up at night to do it. This should help expand the bottom part of your lung which is currently collapsing down and likely leading to your symptoms. If you develop a fever or your breathing worsens please return to the ER. Otherwise [facility]. The following information is given to patients seen in the emergency department who are being discharged to home. This information is to outline your options for follow-up care. We provide all patients seen in our emergency department wi th a follow-up referral. The need for follow-up, as well as the timing and circumstances, are variable depending upon the specifics of your emergency department visit. If you don't have a primary care physician on staff, we will provide you with a referral. We always advise you to contact your personal physician following an emergency department visit to inform them of the circumstance of the visit and for follow-up with them and/or the need for any referrals to a consulting specialist. The emergency department will also refer you to a specialist when appropriate. This referral assures that you have the opportunity for follow-up care with a specialist. All of these measure are taken in an effort to provide you with optimal care, which includes your follow-up. Under all circumstances we always encourage you to contact your private physician who remains a resource for coordinating your care. When calling for follow-up care, please make the office aware that this follow-up is from your recent emergency room visit. If for any reason you are refused follow-up, please contact the [facility] Emergency Department at and asked to speak to the emergency department charge nurse. Sepsis Event Note (ED) - Evaluation Sepsis Screening Result: No Definite Risk - Focused Exam Vital Signs: Vital Signs Temp Pulse Resp BP Pulse Ox 11/12/19 12:58 98.1 F 55 L 20 127/55 L 96 - My Orders Last 24 Hours: My Active Orders 11/12/19 13:26 EKG 12 Lead [EKG Documentation Completion] [RC] STAT - Assessment/Plan Last 24 Hours: My Active Orders 11/12/19 13:26 EKG 12 Lead [EKG Documentation Completion] [RC] STAT Assessment:: Well-appearing 74-year-old male presenting with right-sided chest discomfort yesterday. Patient appears well and appears to be at his baseline. However given history multiple things need to be considered ACS felt unlikely but EKG and single troponin sent. Given duration of symptoms single troponin should be sufficient. Pneumonia pneumothorax considered unlikely but chest x-ray pending PE needs to be considered and d-dimer sent. If labs unremarkable given patient's minimal symptoms at this time could likely discharge. 1442: Patient's labs are without acutely concerning finding patient's chest x- ray demonstrates right basilar atelectasis but no acute infiltrate. I do think the atelectasis is the cause of patient's symptoms he likely has some mild mucus plugging related to his COPD he feels well his vital signs are good and that he can go home with incentive spirometry and [facility].
--- NOTE | 2019-11-12 14:05 | CR ---
Chest: 2 views of the chest were obtained. Comparison: Prior chest x-ray of 08/17/18. Findings: Thick area of atelectasis noted within the right middle lobe. Lungs otherwise are clear. Heart size and mediastinum are normal. Mild scattered disc space narrowing within the spine. Impression: 1. Thick area of atelectasis within the right lung base. 2. Nothing acute is otherwise seen. Diagnostic code #2 This report was dictated in MDT
[2019-11-12 14:39] LABS: BLOOD UREA NITROGEN,BUN 12 mg/dL (7.0-18.0); CHLORIDE,CL 104 mmol/L (98-107); GLUCOSE RANDOM 89 mg/dL (74-106); POTASSIUM,K 4.6 mmol/L (3.5-5.1); SODIUM,NA 142 mmol/L (136-148)
[2019-11-12 15:09] VITALS: BP 130/76; PULSE 67
== END 2019-11-12 15:17 | disposition home or self-care (01) ==
LOC: MW.ED 12:54
DX: J98.11 Atelectasis (principal); R00.1 Bradycardia, unspecified; I45.10 Unspecified right bundle-branch block; J44.9 Chronic obstructive pulmonary disease, unspecified; K21.9 Gastro-esophageal reflux disease without esophagitis; Z87.891 Personal history of nicotine dependence; Z88.8 Allergy status to other drugs, medicaments and biological substances; Z88.0 Allergy status to penicillin; Z88.1 Allergy status to other antibiotic agents; Z79.899 Other long term (current) drug therapy; Z79.02 Long term (current) use of antithrombotics/antiplatelets; Z79.82 Long term (current) use of aspirin
CPT/HCPCS: 36415; 71046; 71046-26; 80048; 84484; 85025; 85379; 93005; 99285-25